=== PATIENT | male | born 1960 | race Native Hawaiian/Other Pacific Islander ===

== ENCOUNTER → 2020-09-30 | Outpatient (BNVA) | payer MEDICAID, SELFPAY | END | disposition home or self-care (01) | PROVIDERS: Visit Provider Urology ==

== ENCOUNTER 2025-04-10 11:54 | Emergency (ER) | payer MEDICARE, MEDICAID, SELFPAY ==
[2025-04-10 11:55] VITALS: BMI 22.7
[2025-04-10 12:10] VITALS: BP 149/64; PULSE 72; RESP 18; TEMP 37.6; O2SAT 93
--- NOTE | 2025-04-10 12:16 | PD.EDRME ---
Rapid Medical Screening Exam RME Arrival date/time: 04/10/25 11:54 Chief Complaint: Abdominal Pain Time Seen by Provider: 04/10/25 12:10 Vital signs: Vital Signs Temperature 99.6 F 04/10/25 12:10 Pulse Rate 72 04/10/25 12:10 Respiratory Rate 18 04/10/25 12:10 Blood Pressure 149/64 H 04/10/25 12:10 Pulse Oximetry (%) 93 L 04/10/25 12:10 Oxygen Delivery Method Room Air 04/10/25 12:10 RME Narrative: 64-year-old male past medical history of ESRD on hemodialysis Monday presents to the ER complaining of right lower quadrant pain and fever since yesterday. Patient does not make any more urine. Denies any nausea vomiting or diarrhea. I briefly performed a screening evaluation to initiate work-up and expedite care. Complete history, physical exam, and plan of care is deferred to the provider in the main ED. Exam: Head: Normocephalic, atraumatic. Respiratory: Normal effort. No respiratory distress or accessory muscle use. Neuro: Speech normal. Skin: Warm, dry, normal color. Psych: Pleasant. Normal affect. Cooperative. Clinical Impression: Abdominal pain
--- NOTE | 2025-04-10 12:17 | XR_ITS ---
Examination: CT abdomen and pelvis without contrast. Coronal 3-D reconstructions. Sagittal 2-D reconstructions. Date and time of exam: April 10, 2025, 1236 hours INDICATIONS: Right-sided flank pain beginning 2 days ago COMPARISON: October 27, 2020 CTDI: vol (mGy): 4.79 DLP: (mGycm): 258 Technique: Axial images of the abdomen have been obtained, 3 mm slice thickness Intravenous contrast material has not been administered. Low dose protocols were performed. One or more of the following dose reduction techniques were used; automated exposure control, adjustment of the mA and/or KV according to patient size, use of iterative reconstruction technique. Findings: Trace pericardial thickening No focal liver or splenic lesion No gallstones No pancreatic mass Perinephric stranding Normal appendix No renal or ureteral calculi, no hydronephrosis Urinary bladder wall thickening up to 10 mm Mild prostatomegaly Severe osteopenia IMPRESSION: Perinephric stranding, consider urinary tract infection No renal or ureteral calculi, no hydronephrosis Normal appendix Urinary bladder wall thickening, differential would include cystitis
[2025-04-10 13:00] LABS: Lactate (Lactic Acid) 1.4 mMol/L (0.4-2.0)
[2025-04-10 13:01] LABS: Basophils # (Auto) 0.1 Thou/mm3 (0.0-0.2); Basophils % (Auto) 1 % (0-2.5); Eosinophils # (Auto) 0.5 Thou/mm3 (0.0-0.5); Eosinophils % (Auto) 5 % (0-10); Hematocrit 27.4 % (41.0-53.0); Hemoglobin 9.4 g/dL (13.5-16.0); Immature Granulocytes Auto 0.03 Thou/mm3 (0.00-0.00); Lymphocytes # (Auto) 1.2 Thou/mm3 (1.0-4.8); Lymphocytes % (Auto) 12 % (10-50); Mean Corpuscular HGB Conc 34.3 g/dl (31.0-37.0); Mean Corpuscular Hemoglobin 24.7 pg (25.0-35.0); Mean Corpuscular Volume 72 fL (80-100); Monocytes # (Auto) 1.0 Thou/mm3 (0.0-0.8); Monocytes % (Auto) 10 % (0-12); Neutrophils # (Auto) 6.9 Thou/mm3 (1.8-7.7); Neutrophils % (Auto) 72 % (37-80); Nucleated Red Blood Cell # 0.00 Thou/mm3 (0.00-0.00); Nucleated Red Blood Cell % 0 /100 WBC (0); Platelet Count 272 Thou/mm3 (140-440); RDW Standard Deviation 40.4 fL (35.1-43.9); Red Blood Count 3.81 Miln/mm3 (4.50-5.90); White Blood Count 9.6 Thou/mm3 (3.8-10.6)
[2025-04-10 13:22] LABS: Alanine Aminotransferase 9 U/L (10-49); Albumin, Serum 4.2 gm/dL (3.4-4.8); Albumin/Globulin Ratio 1.4 (1.2-2.2); Alkaline Phosphatase 64 U/L (46-116); Anion Gap 13 (7-16); Aspartate Amino Transferase 16 U/L (0-34); BUN/Creatinine Ratio 3 Ratio (12-20); Bilirubin,Total 0.3 mg/dL (0.3-1.2); Blood Urea Nitrogen 16 mg/dL (9-23); Calcium 9.2 mg/dL (8.3-10.6); Calcium (Corrected) 9.2 mg/dL (8.5-10.1); Carbon Dioxide 28.3 mMol/L (20.0-31.0); Chloride 94 mMol/L (98-107); Creatinine (Component) 5.2 mg/dL (0.6-1.3); Estimated Creatinine Clearance 12.8 mL/min (>60); Globulin 2.9 gm/dL (2.3-3.5); Glucose 130 mg/dL (74-106); Lipase 29 U/L (12-53); Osmolality,Calculated 273 (275-295); Potassium 3.2 mMol/L (3.4-5.1); Sodium 135 mMol/L (136-145); Total Protein 7.1 gm/dL (5.7-8.2); eGFR 12 See Note
[2025-04-10 13:29] LABS: Collection Type, Urine Voided
[2025-04-10] MEDS: ONDANSETRON ODT 4 MG TABRAP PO (13:36)
[2025-04-10] MEDS: KETOROLAC INJ 30 MG/ML VIAL IM (13:37)
[2025-04-10 13:47] LABS: Bacteria,Urine Rare; Bilirubin,Urine Negative (Negative); Blood,Urine 2+ (Negative); Clarity,Urine Clear (Clear/Hazy); Color,Urine Lt-Yellow (Lt Yel-Yel); Glucose, Urine 2+ (Negative); Hyaline Casts,Urine < 1 /hpf (0-1); Ketones,Urine Negative (Negative); Leukocyte Esterase,Urine Negative (Negative); Nitrite,Urine Negative (Negative); PH,Urine 7.0 (5.0-7.0); Protein,Urine 3+ (Neg - Trace); RBC,Urine 11 /hpf (0-3); Specific Gravity,Urine 1.019 (1.001-1.035); Squamous Epithelial Cell,Urine 1 /hpf (0-5); Urobilinogen,Urine Negative mg/dL (0.0-1.0); WBC,Urine 1 /hpf (0-5)
--- NOTE | 2025-04-10 16:18 | XR_ITS ---
Upright PA and lateral chest 04/10/2025 at 4:29 p.m. Comparison study 03/26/2023 INDICATION: Chest pain and right flank pain today There is significant cardiomegaly noted. On the lateral film there is a slightly curving tubular structure overlying the anterior heart, this is seen situated obliquely over the midline on the PA chest film compared with the previous chest radiograph, dense appearance to be some mild linear bands of hypertension in the upper lungs, this definitely appears more prominent than on the last film. There is also some very mild but definite interstitial congestion in the base of the right lower lobe, and there is obscuration of the cardiac apex over the left lower lung suggesting the presence of some minimal congestion in this region lateral film shows no evidence of any pleural fluid posteriorly but there is a tiny amount of fluid within one of the major fissures. There is multilevel disc space narrowing throughout the dorsal spine. IMPRESSION: 1. There is significant cardiomegaly. 2 there is mild pulmonary venous hypertension in the upper lung zones, and very mild interstitial congestion in the lower lung zones, the findings are most consistent with very mild CHF. 3. There is an oblique tubular structure overlying the anterior heart shadow. This is of uncertain etiology but it appears to be postsurgical.
--- NOTE | 2025-04-10 16:19 | EKG_ITS ---
[facility] Test Date: 2025-04-10 Pat Name: GRETEL VANCE Department: Room: - Gender: Male [employer] Pourer: : 1960 Requested By: Chico Ryder Order Number: [id number] Reading MD: Chico Ryder Measurements Intervals [place] Rate: 74 P: 71 ND: 170 QRS: 70 QRSD: 102 T: 73 QT: 430 QTc: 480 Interpretive Statements SINUS RHYTHM PROBABLE INFERIOR MYOCARDIAL INFARCTION , OF INDETERMINATE AGE [35 ms Q WAVE IN II/aVF] Compared to ECG 03/26/2023 14:55:36 No significant changes /store/S0/[id number]
[2025-04-10 16:32] VITALS: BP 164/68; PULSE 67; RESP 18; TEMP 36.9; O2SAT 93
--- NOTE | 2025-04-10 17:22 | PD.EDABDPN ---
ED Abdominal Pain RME/HPI General Chief Complaint: Abdominal Pain Stated complaint: ABD PAIN AND SOB Time seen by provider: 04/10/25 12:10 Arrival date/time: 04/10/25 11:54 Limitations: no limitations RME / HPI RME / HPI narrative: 64-year-old male past medical history of ESRD on hemodialysis Monday presents to the ER complaining of right lower quadrant pain and fever since yesterday. Patient does not make any more urine. Denies any nausea vomiting or diarrhea. I briefly performed a screening evaluation to initiate work-up and expedite care. Complete history, physical exam, and plan of care is deferred to the provider in the main ED. DR. ROMERO MAIN ED EVALUATION: 64 year old male with history of CAD s/p PCI, hypertension, diabetes, ESRD on HD M/W/F presents to the ED with complaints of right flank pain just below the rib cage beginning yesterday. Described as aching in sensation, rating as severe 10/10. Aggravated with movements or coughing. Minimally improved with remaining still. No history of similar pain. Denies fevers, chills, sweats, nausea or vomiting. States after receiving medication in the ED, his pain has improved and now rated 4/10. Exam: Head: Normocephalic, atraumatic. Respiratory: Normal effort. No respiratory distress or accessory muscle use. Neuro: Speech normal. Skin: Warm, dry, normal color. Psych: Pleasant. Normal affect. Cooperative. Impression: Abdominal pain Related Data Home Medications ?Medication ?Instructions ?Recorded ?Confirmed atorvastatin 40 mg tablet 40 mg PO QPM 09/13/20 03/27/23 clopidogrel 75 mg tablet (Plavix) 75 mg PO QDAY 09/13/20 03/27/23 ergocalciferol (vitamin D2) 1,250 1 unit PO QWEEK 09/13/20 03/27/23 mcg (50,000 unit) capsule (Vitamin D2) gemfibrozil 600 mg tablet 600 mg PO BID 09/13/20 03/27/23 glipizide 2.5 mg tablet, extended 2.5 mg PO QAM 09/13/20 03/27/23 release 24 hr amlodipine 10 mg tablet 10 mg PO QDAY 02/04/23 03/27/23 aspirin 81 mg chewable tablet 81 mg PO PRN PRN chest discomfort 02/04/23 03/27/23 clonidine HCl 0.1 mg tablet 0.1 mg PO BID 02/04/23 03/27/23 finasteride 5 mg tablet 5 mg PO QDAY 02/04/23 03/27/23 folic acid 1 mg tablet 1 mg PO QDAY 03/27/23 03/27/23 Previous Rx's ?Medication ?Instructions ?Recorded tamsulosin 0.4 mg capsule 0.4 mg PO HS #30 caps 08/26/20 metoprolol succinate 50 mg 50 mg PO QDAY #30 tabs 02/24/23 tablet,extended release 24 hr hydrochlorothiazide 12.5 mg capsule 25 mg (2 x 12.5 mg) PO QDAY #60 03/28/23 caps Allergies Allergy/AdvReac Type Severity Reaction Status Date / Time No Known Allergies Allergy Verified 04/10/25 11:55 Review of Systems Review of Systems Systems Reviewed: All systems reviewed, normal except as documented Past Medical History Past Medical History CARDIAC: Positive Cardiac Disorders, Myocardial Infarction, Coronary Artery Disease, Hypercholesterolemia and Deep Vein Thrombosis RESPIRATORY: Positive Asthma GENITOURINARY: Positive Genitourinary Disorders, Renal Disease, Dialysis (mwf) and Benign Prostatic Hyperplasia ENDOCRINE: Positive Diabetes Mellitus Type 2 OTHER HISTORY: Positive Hospitalization and Chicken Pox Family History FAMILY HISTORY: Negative Family Psychiatric Problems, Family Respiratory Disorders, Family Cardiac Disorders, Family Gastrointestinal Problems, Family Cancer, Family Surgery or Family Anesthesia Reaction Surgical History SURGICAL: Positive Cardiac Surgery, Coronary Artery Bypass Graft and Coronary Stent Social History SMOKING STATUS: Current some day smoker SECOND HAND EXPOSURE: Yes SUBSTANCE USE: does not use ED Exam General Limitations: Present no limitations General appearance: Present alert and in no apparent distress Head Head exam: Present atraumatic Eye Eye exam: Present PERRL, EOMI and other (conjunctiva mildly injected ) ENT ENT exam: Present normal exam, normal oropharynx and mucous membranes moist Neck Neck exam: Present normal inspection, full ROM and trachea midline Chest Chest inspection: Present normal inspection and symmetric chest wall rise Respiratory Respiratory exam: Present normal lung sounds bilaterally Cardiovascular Cardiovascular exam: Present regular rate, normal rhythm and normal heart sounds Abdominal Exam Abdominal exam: Present soft, normal bowel sounds and other (rigth flank tenderness just below the ribs and above the hip, worse with deep palpation that seems to be related to pushing on abdominal wall ) Extremities Exam Extremities exam: Present full ROM and other (AV fistula with good thrill and pulse in the left upper extremity ) Back Exam Back exam: Present normal inspection and full ROM Neurological Exam Neurological exam: Present alert, oriented X3 and CN II-XII intact Psychiatric Psychiatric exam: Present normal affect and normal mood Skin Skin exam: Present warm, dry, intact and normal color Course Quality Measures none Orders Category Date Time Status EKG (ED ONLY) *Do not use* NOW Care 04/10/25 16:19 Completed NPO NOW Care 04/10/25 12:17 Active Diet NPO (NOW) Diet 04/10/25 12:[address] abdomen pelvis wo con Stat Exams 04/10/25 12:17 Completed EKG (ED Only) Stat Exams 04/10/25 16:19 Draft XR chest 2V Stat Exams 04/10/25 16:18 Completed Blood Culture (Lab) Stat Lab 04/10/25 12:48 Received CBC Stat Lab 04/10/25 12:48 Completed CMP [Comprehensive Metabolic Panel] Stat Lab 04/10/25 12:48 Completed Lactic Acid [Lactate (Lactic Acid)] Stat Lab 04/10/25 12:48 Completed Lipase Stat Lab 04/10/25 12:48 Completed Urinalysis Stat Lab 04/10/25 13:16 Completed Urine Culture Stat Lab 04/10/25 13:16 Received Acetaminophen Tab [Tylenol Tab] Med 04/10/25 17:20 Discontinued 650 mg PO X1 ONE Ketorolac Inj [Toradol Inj] Med 04/10/25 12:17 Discontinued 30 mg IM X1 ONE Ondansetron Odt [Zofran Odt] Med 04/10/25 12:17 Discontinued 4 mg PO X1 ONE Potassium Chloride [K-Dur] Med 04/10/25 17:20 Discontinued 20 meq PO X1 ONE Vital Signs Vital signs: Vital Signs Temperature 99.6 F 04/10/25 12:10 Pulse Rate 72 04/10/25 12:10 Respiratory Rate 18 04/10/25 12:10 Blood Pressure 149/64 H 04/10/25 12:10 Pulse Oximetry (%) 93 L 04/10/25 12:10 Oxygen Delivery Method Room Air 04/10/25 12:10 Pulse ox is 93% on room air which is borderline low. Abdominal Pain MDM MDM Narrative MDM Narrative:: Gretel Robison am scribing for and in the presence of Dr. Romero. Patient remains clinically stable throughout the emergency department visit. We reviewed all the results, analysis, and treatment plans. Studies are unremarkable for acute findings today and the pain is most likely musculoskeletal. Patient is amenable to discharge. Strict return precautions were outlined. Patient data External records reviewed:: [facility] previous records Clinical information provided by:: patient Social determinants that could affect healthcare access:: none Patient has the following chronic illnesses:: CAD s/p PCI, hypertension, diabetes, ESRD on HD M/W/F How is presenting disease/condition affected by chronic disease/condition?: exacerbated by Evaluation data The following diagnostics were reviewed and interpreted by me:: lab results, radiology exam(s) and EKG tracing(s) (EKG @ 16:29h, interpreted by me, normal sinus rhythm, rate 74, no STEMI. ) Lab and/or radiology exams considered but not ordered:: None Interpretation Summary: Ordering Physician: Chico Sommers PA-C Date of Service: 04/10/25 Procedure(s): CT abdomen pelvis wo [place] Accession Number(s): [id number] cc: Surinder Covarrubias MD; Chico Sommers PA-C~ Examination: CT abdomen and pelvis without contrast. Coronal 3-D reconstructions. Sagittal 2-D reconstructions. Date and time of exam: April 10, 2025, 1236 hours INDICATIONS: Right-sided flank pain beginning 2 days ago COMPARISON: October 27, 2020 CTDI: vol (mGy): 4.79 DLP: (mGycm): 258 Technique: Axial images of the abdomen have been obtained, 3 mm slice thickness Intravenous contrast material has not been administered. Low dose protocols were performed. One or more of the following dose reduction techniques were used; automated exposure control, adjustment of the mA and/or KV according to patient size, use of iterative reconstruction technique. Findings: Trace pericardial thickening No focal liver or splenic lesion No gallstones No pancreatic mass Perinephric stranding Normal appendix No renal or ureteral calculi, no hydronephrosis Urinary bladder wall thickening up to 10 mm Mild prostatomegaly Severe osteopenia IMPRESSION: Perinephric stranding, consider urinary tract infection No renal or ureteral calculi, no hydronephrosis Normal appendix Urinary bladder wall thickening, differential would include cystitis Dictated By: Surinder Covarrubias MD Signed By: <Electronically signed by Surinder Covarrubias MD in OV> 04/10/25 1317 Ordering Physician: Chico Sommers PA-C Date of Service: 04/10/25 Procedure(s): XR chest 2V Accession Number(s): [id number] cc: Surinder Brown MD; NO PRIMARY/FAMILY,PHYSICIAN; Chico Sommers PA-C~ Upright PA and lateral chest 04/10/2025 at 4:29 p.m. Comparison study 03/26/2023 INDICATION: Chest pain and right flank pain today There is significant cardiomegaly noted. On the lateral film there is a slightly curving tubular structure overlying the anterior heart, this is seen situated obliquely over the midline on the PA chest film compared with the previous chest radiograph, dense appearance to be some mild linear bands of hypertension in the upper lungs, this definitely appears more prominent than on the last film. There is also some very mild but definite interstitial congestion in the base of the right lower lobe, and there is obscuration of the cardiac apex over the left lower lung suggesting the presence of some minimal congestion in this region lateral film shows no evidence of any pleural fluid posteriorly but there is a tiny amount of fluid within one of the major fissures. There is multilevel disc space narrowing throughout the dorsal spine. IMPRESSION: 1. There is significant cardiomegaly. 2 there is mild pulmonary venous hypertension in the upper lung zones, and very mild interstitial congestion in the lower lung zones, the findings are most consistent with very mild CHF. 3. There is an oblique tubular structure overlying the anterior heart shadow. This is of uncertain etiology but it appears to be postsurgical. Dictated By: Surinder Brown MD Signed By: <Electronically signed by Surinder Brown MD in OV> 04/10/25 1657 Medications / Prescriptions Medications or Prescriptions considered but not ordered:: None Medication administrations:: Medication Administration History Discontinued Medications Acetaminophen (Acetaminophen 325 Mg Tablet) 650 mg PO X1 ONE Stop: 04/10/25 17:21 Last Admin: 04/10/25 17:34 Dose: 650 mg Documented By: EF Ketorolac Tromethamine (Ketorolac Inj 30 Mg/Ml Vial) 30 mg IM X1 ONE Stop: 04/10/25 12:18 Last Admin: 04/10/25 13:37 Dose: 30 mg Documented By: VG Ondansetron HCl (Ondansetron Odt 4 Mg Tabrap) 4 mg PO X1 ONE; Protocol Stop: 04/10/25 12:18 Last Admin: 04/10/25 13:36 Dose: 4 mg Documented By: VG Potassium Chloride (Potassium Chloride 20 Meq Tabcr) 20 meq PO X1 ONE Stop: 04/10/25 17:21 Last Admin: 04/10/25 17:35 Dose: 20 meq Documented By: EF See above Consultations Consultation(s) initiated? (list below): No Diagnosis Differential diagnosis abdominal pain: abdominal pain, calculus of kidney, small bowel obstruction and other (musculoskeletal pain ) Most likely diagnosis given after review of the tests above:: Acute right flank pain Musculoskeletal pain Admission Indicated Admission indicated?: not indicated Admission Request Was there a request for admission?: No Disposition Plan Disposition Plan: Discharge Discharge Attestation Discharge Attestation: The patient and all family members were given an opportunity to ask questions and understood the discharge instructions. Discharge instructions specifically effects, indications for sooner follow up or return to the emergency department, and the expected course of current diagnosis. Patient condition: Stable Discharge Plan Plan Patient Disposition: HOME (Self Care) Patient condition on transfer: Stable Prescriptions/Referrals Prescriptions/Med Rec: No Action glipizide 2.5 mg Tablet Extended Release 24hr 2.5 mg PO QAM atorvastatin 40 mg Tablet 40 mg PO QPM gemfibrozil 600 mg Tablet 600 mg PO BID ergocalciferol (vitamin D2) [Vitamin D2] 1,250 mcg (50,000 unit) Capsule 1 unit PO QWEEK Rx Instructions: one once a week clopidogrel [Plavix] 75 mg tablet 75 mg PO QDAY tamsulosin 0.4 mg Capsule 0.4 mg PO HS Qty: 30 0RF clonidine HCl 0.1 mg tablet 0.1 mg PO BID Rx Instructions: take one tablet PO in morning, take one tablet PO at bedtime finasteride 5 mg tablet 5 mg PO QDAY amlodipine 10 mg tablet 10 mg PO QDAY aspirin 81 mg Tablet,Chewable 81 mg PO PRN PRN (Reason: chest discomfort) metoprolol succinate 50 mg tablet extended release 24 hr 50 mg PO QDAY Qty: 30 0RF Rx Instructions: take one by mouth 3 times daily for blood pressure folic acid 1 mg tablet 1 mg PO QDAY Patient Comments: TAKE ONE TABLET BY MOUTH EVERY DAY VITAMIN hydrochlorothiazide 12.5 mg Capsule 25 mg PO QDAY Qty: 60 0RF Referrals: No Primary/Family,Physician [Primary Care Provider] - In 1 week Problem List Clinical Impression: Acute right flank pain, Musculoskeletal pain Patient/Caregiver Discharge Instructions Discharge Activity: activity as tolerated Additional Instructions: Please take Tylenol 500 mg 1 to 2 tablets every 6 hours for pain. Follow-up with your doctor in 1 day. If you have any concerns return to the ER for increased abdominal pain. Print Language: Azeri Stand Alone Forms: Echo Award Info., Patient Portal Info Letter
[2025-04-10] MEDS: ACETAMINOPHEN 325 MG TABLET 650 MG PO (17:34)
[2025-04-10 17:56] VITALS: BP 169/80; PULSE 78; RESP 16; TEMP 37.2; O2SAT 94
== END 2025-04-10 18:01 | disposition home or self-care (01) ==
PROVIDERS: Physician Assistant; Emergency Provider Family Medicine
DX: R10.A1 Flank pain, right side (principal); M79.18 Myalgia, other site; N32.89 Other specified disorders of bladder; I13.11 Hypertensive heart and chronic kidney disease without heart failure, with stage 5 chronic kidney disease, or end stage renal disease; E11.22 Type 2 diabetes mellitus with diabetic chronic kidney disease; F17.210 Nicotine dependence, cigarettes, uncomplicated; N18.6 End stage renal disease; I25.10 Atherosclerotic heart disease of native coronary artery without angina pectoris; Z99.2 Dependence on renal dialysis; Z79.84 Long term (current) use of oral hypoglycemic drugs; Z95.5 Presence of coronary angioplasty implant and graft
CPT/HCPCS: 36415; 71046; 74176; 80053; 81001; 83605; 83690; 85025; 87040; 87086; 93005; 96372; 99284; J1885; Q0162; A9270

== ENCOUNTER 2025-04-11 09:19 | Inpatient (IN) | payer MEDICARE, MEDICAID, SELFPAY ==
[2025-04-11] VITALS (31 sets, daily range): BP systolic 149–191; BP diastolic 62–86; PULSE 78–105; RESP 12–88; TEMP 36.7–39.1; O2SAT 88–100; BMI 22.7; BMI 23.6
--- NOTE | 2025-04-11 09:22 | EKG_ITS ---
[facility] Test Date: 2025-04-11 Pat Name: GRETEL VANCE Department: Room: - Gender: Male [employer]visor [employer]: : 1960 Requested By: David Hodges Order Number: [id number] Reading MD: David Hodges Measurements Intervals [place] Rate: 98 P: 71 [place]: 160 QRS: 74 QRSD: 105 T: 60 QT: 382 QTc: 489 Interpretive Statements SINUS RHYTHM POSSIBLE LEFT ATRIAL ENLARGEMENT [-0.1mV P-WAVE IN V1/V2] PROBABLE INFERIOR MYOCARDIAL INFARCTION , PROBABLY OLD [35 ms Q WAVE IN II/aVF] Compared to ECG 04/10/2025 16:29:49 No significant changes /store/S0/[id number].pdf
--- NOTE | 2025-04-11 09:30 | XR_ITS ---
EXAMINATION: AP chest single view TECHNIQUE: AP portable semiupright chest single view Date and time: April 11, 2025, 1037 hours, comparison April 10, 2025 INDICATIONS: Chest pain today. FINDINGS: Mild CHF Mild to moderate enlargement left ventricle Prominent vascular congestion with perihilar basilar edema Prominent osteopenia IMPRESSION: Mild CHF
--- NOTE | 2025-04-11 09:54 | ECHO_ITS ---
Patient Info Name: Dustin Avila Age: 64 years : 1960 Gender: Male Ht: 165 cm Wt: 62 kg BSA: 1.69 m2 BP: 190 / 76 mmHg HR: 86 bpm Exam Date: 04/11/2025 11:14 AM Admit Date: 04/11/2025 Site: [facility] Room Number: 274 Patient Status: E Exam Type: CA echo doppler complete Bias Cutter: Dominique Doran Ordering Physician: Kapil Nj Study Info Indications ACS, hx of CAD - Primary Location: SERX Left Ventricular Outflow Tract Name Value Normal LVOT 2D LVOT Diameter 1.9 cm LVOT Doppler LVOT Peak Velocity 158 cm/s LVOT Mean Gradient 5 mmHg LVOT VTI 37 cm LVOT VTI/AV VTI Ratio 0.8 LVOT Stroke Volume 105 ml Pulmonic Valve Name Value Normal PV Doppler PV Peak Velocity 110 cm/s PV Regurgitation Doppler MN Peak End Diastolic Velocity 94 cm/s Mitral Valve Name Value Normal MV Doppler MV Decel [place] 863 cm/s2 MV PHT 35 ms MV Area (PHT) 6.3 cm2 4.0-5.0 MV Diastolic Function MV E Peak Velocity 103 cm/s MV A Peak Velocity 126 cm/s MV E/A 0.8 MV Annular TDI MV Septal e' Velocity 3.7 cm/s MV E/e' (Septal) 27.8 MV Lateral e' Velocity 4.9 cm/s MV E/e' (Lateral) 21.0 MV e' Average 4.30 cm/s MV E/e' (Average) 24.4 Tricuspid Valve Name Value Normal TV Regurgitation Doppler TR Peak Velocity 270 cm/s Estimated PAP/RSVP RA Pressure 3 mmHg <=5 PA Systolic Pressure 32 mmHg <36 RV Systolic Pressure 32 mmHg <36 Aortic Valve Name Value Normal AV 2D/MM AV Cusp Sep (MM) 1.8 cm AV Doppler AV Peak Velocity 211 cm/s AV Mean Gradient 8 mmHg AV VTI 46 cm AV Area (Cont Eq VTI) 2.3 cm2 >=3.0 AV Area (Cont Eq Pool) 2.1 cm2 AV DI (Pool) 0.75 AV Regurgitation 2D LVOT Area 2.8 cm2 Ventricles Name Value Normal LV Dimensions 2D/MM IVS Diastolic Thickness (2D) 1.0 cm 0.6-1.0 LVID Diastole (2D) 4.9 cm 4.2-5.8 LVIW Diastolic Thickness (2D) 1.7 cm 0.6-1.0 LVID Systole (2D) 3.5 cm 2.5-4.0 LVOT Diameter 1.9 cm LV Mass (2D Cubed) 267.94 g 88.00-224.00 LV Mass Index (2D Cubed) 159 g/m2 49-115 Relative Wall Thickness (2D) 0.69 <=0.42 IVS/LVIW Diastolic Thickness (2D) 0.59 0.00-1.50 LV Fractional Shortening/Ejection Fraction 2D/MM LV Fractional Shortening (2D) 29 % 25-43 LV EF (2D Teichholz) 55 % Atria Name Value Normal LA Dimensions LA Volume (4C A-L) 84 ml LA Volume (BP A-L) 86 ml Left Ventricle Left ventricular chamber dimension is normal. Left ventricular systolic function is normal with visually estimated ejection fraction of 50-55%. There is mild concentric hypertrophy noted in the left ventricle. Left ventricular segmental wall motion is normal. There is grade I diastolic dysfunction in the left ventricle. Right Ventricle Right ventricular chamber dimension is normal. Right ventricular systolic function is normal. Left Atrium Left atrial chamber dimension is moderately enlarged. Right Atrium Right atrial chamber dimension is normal. Aortic Valve The aortic valve is trileaflet. There is no aortic valve sclerosis. There is mild aortic valve stenosis with a peak velocity of 211 cm/s, mean gradient of 8 mmHg, and aortic valve area of 2.3 cm2. There is trace aortic valve regurgitation. Pulmonic Valve The pulmonic valve is normal. There is no pulmonic valve stenosis. There is trace pulmonic regurgitation. Mitral Valve The mitral valve has thickened leaflets. There is no mitral valve stenosis. There is trace mitral valve regurgitation. Tricuspid Valve The tricuspid valve leaflets are normal. There is no tricuspid valve stenosis. There is mild tricuspid valve regurgitation. No pulmonary hypertension, estimated pulmonary arterial systolic pressure is 32 mmHg and systemic blood pressure of 190 mmHg in systole. Pericardium/Pleural The pericardium appears normal. There is no pericardial effusion. No pleural effusion visualized. Inferior Vena Cava Normal inferior vena cava with >50% collapse upon inspiration consistent with normal right atrial pressure, 3 mmHg. Aorta The aortic measurements are indexed to age and body surface area. The aortic root at the sinus of Valsalva is not well visualized. The prox ascending aorta is not well visualized. Summary 1. Left ventricle size is normal and systolic function is normal. Estimated ejection fraction is 50-55%. There is grade I diastolic dysfunction. There is mild concentric hypertrophy noted. 2. Right ventricle chamber size is normal and systolic function is normal. Estimated RVSP is 32 mmHg. 3. There is no aortic valve sclerosis with mild stenosis and trace regurgitation. 4. There is trace mitral valve regurgitation with Mild MAC and thickened leaflets. 5. There is mild tricuspid valve regurgitation and Trace Pulmonic regurgitation. 6. The left atrium is moderately enlarged. The right atrium is normal. 7. Normal IVC with estimated RA pressure 3 mmHg. Report Signatures Finalized by Leeann Hanks on 04/11/2025 01:02 PM
--- NOTE | 2025-04-11 09:55 | PD.EDADULT ---
ED General RME/HPI General Chief complaint: Chest Pain Stated complaint: CHEST PAIN Time Seen by Provider: 04/11/25 09:28 Arrival date/time: 04/11/25 09:19 Related Data Home Medications ?Medication ?Instructions ?Recorded ?Confirmed atorvastatin 40 mg tablet 40 mg PO QPM 09/13/20 03/27/23 clopidogrel 75 mg tablet (Plavix) 75 mg PO QDAY 09/13/20 03/27/23 ergocalciferol (vitamin D2) 1,250 1 unit PO QWEEK 09/13/20 03/27/23 mcg (50,000 unit) capsule (Vitamin D2) gemfibrozil 600 mg tablet 600 mg PO BID 09/13/20 03/27/23 glipizide 2.5 mg tablet, extended 2.5 mg PO QAM 09/13/20 03/27/23 release 24 hr amlodipine 10 mg tablet 10 mg PO QDAY 02/04/23 03/27/23 aspirin 81 mg chewable tablet 81 mg PO PRN PRN chest discomfort 02/04/23 03/27/23 clonidine HCl 0.1 mg tablet 0.1 mg PO BID 02/04/23 03/27/23 finasteride 5 mg tablet 5 mg PO QDAY 02/04/23 03/27/23 folic acid 1 mg tablet 1 mg PO QDAY 03/27/23 03/27/23 Previous Rx's ?Medication ?Instructions ?Recorded tamsulosin 0.4 mg capsule 0.4 mg PO HS #30 caps 08/26/20 metoprolol succinate 50 mg 50 mg PO QDAY #30 tabs 02/24/23 tablet,extended release 24 hr hydrochlorothiazide 12.5 mg capsule 25 mg (2 x 12.5 mg) PO QDAY #60 03/28/23 caps Allergies Allergy/AdvReac Type Severity Reaction Status Date / Time No Known Allergies Allergy Verified 04/10/25 11:55 ED Exam Narrative Physical exam: Physical Exam: GENERAL: Awake, answering questions appropriately, appears stated age HEENT: NC/AT. Moist mucosa. PERRLA/EOMI. CARDIO: Heart RRR, no obvious murmurs, no JVD. PULM: No coughing or visible SOB. Bilateral cardiac wheezing noted without any rales/rhonchi GI: Abdomen soft, tenderness to palpation in solely right lower quadrant with some guarding but no rigidity noted. Borborygmi apparent SKIN/MSK/EXT: Left AV fistula patent with thrill. No wounds/discoloration/rashes/edema/amputations. +Pedal pulses present B/L. NEURO: Oriented x3, Moves extremities x4, no focal neurologic deficits noted. Course Quality Measures none Orders Category Date Time Status Roll Sheeting Cutter STAT Care 04/11/25 09:30 Active Continuous Pulse Oximetry ONCE Care 04/11/25 09:30 Active EKG (ED ONLY) *Do not use* NOW Care 04/11/25 09:22 Completed EKG (ED ONLY) *Do not use* NOW Care 04/11/25 09:30 Completed In and Out Catheter X1PRN Care 04/11/25 10:08 Active Insert IV STAT Care 04/11/25 09:30 Active NPO STAT Care 04/11/25 10:08 Active Notify provider NOW Care 04/11/25 09:49 Active Strict Intake and Output Routine Care 04/11/25 10:08 Ordered Consult to Cardiology Stat Cons 04/11/25 09:52 Ordered Consult to Nephrology Stat Cons 04/11/25 10:51 Ordered CA echo doppler complete Stat Exams 04/11/25 09:54 Ordered EKG (ED Only) Stat Exams 04/11/25 09:22 Draft EKG (ED Only) Stat Exams 04/11/25 09:30 Stop Req XR chest 1V portable Stat Exams 04/11/25 09:30 Taken B-Type Natriuretic Peptide Stat Lab 04/11/25 09:40 Received Blood Culture (Lab) Stat Lab 04/11/25 09:52 Received CBC Stat Lab 04/11/25 09:40 Completed Comprehensive Metabolic Panel Stat Lab 04/11/25 09:40 Completed LDH (Lactate Dehydrogenase) Stat Lab 04/11/25 09:57 Received Lactate (Lactic Acid) Stat Lab 04/11/25 09:57 Completed Lipase Stat Lab 04/11/25 09:40 Completed Magnesium Stat Lab 04/11/25 09:40 Completed Partial Thromboplastin Time Stat Lab 04/11/25 09:40 Completed Phosphorous Stat Lab 04/11/25 09:57 Received Procalcitonin Stat Lab 04/11/25 09:57 Received Prothrombin Time with INR Stat Lab 04/11/25 09:40 Completed Troponin I Stat Lab 04/11/25 09:40 Completed Troponin I Stat Lab 04/11/25 10:56 Ordered Urinalysis, C/S if Indicated Stat Lab 04/11/25 10:08 Ordered Acetaminophen Tab [Tylenol Tab] Med 04/11/25 10:07 Discontinued 650 mg PO X1 ONE Aspirin Chew Med 04/11/25 09:29 Discontinued 162 mg PO X1 ONE Atorvastatin Calcium [Lipitor] Med 04/11/25 21:00 Active 80 mg PO HS Heparin Inj Med 04/11/25 10:30 Discontinued 3,700 unit IV X1 ONE Heparin/D5w 25K 250 ML Ivpb [Heparin in D5w Ivpb] Med 04/11/25 10:45 Active 25,000 unit in 250 ml IV 12 units/kg/hr Magnesium Sulfate 4 GM Ivpb [Magnesium Sulfate Ivpb] Med 04/11/25 10:33 Active 4 gm in 50 ml IV X1 Metoprolol Succinate Xl [Toprol Xl] Med 04/11/25 09:48 Discontinued 25 mg PO X1 ONE Nitroglycerin [Nitrostat 1/150] Med 04/11/25 09:29 Active 0.4 mg SL Q5M PRN Ringers Lactated 1000 ml [Lactated Ringers] 1,845 ml Med 04/11/25 10:08 Active IV 1,845 mls/hr Oxygen Delivery NOW RT 04/11/25 09:30 Active Vital Signs Vital signs: Vital Signs Temperature 102.4 F H 04/11/25 09:46 Pulse Rate 97 04/11/25 09:46 Respiratory Rate 22 H 04/11/25 09:46 Blood Pressure 190/76 H 04/11/25 09:46 Pulse Oximetry (%) 97 04/11/25 09:46 Oxygen Delivery Method Nasal Cannula 04/11/25 09:46 Oxygen Flow Rate 2 04/11/25 09:46 Discharge Plan Plan Patient Disposition: Admit Acute Care w/in Hospital Patient condition on transfer: Stable Prescriptions/Referrals Prescriptions/Med Rec: No Action glipizide 2.5 mg Tablet Extended Release 24hr 2.5 mg PO QAM atorvastatin 40 mg Tablet 40 mg PO QPM gemfibrozil 600 mg Tablet 600 mg PO BID ergocalciferol (vitamin D2) [Vitamin D2] 1,250 mcg (50,000 unit) Capsule 1 unit PO QWEEK Rx Instructions: one once a week clopidogrel [Plavix] 75 mg tablet 75 mg PO QDAY tamsulosin 0.4 mg Capsule 0.4 mg PO HS Qty: 30 0RF clonidine HCl 0.1 mg tablet 0.1 mg PO BID Rx Instructions: take one tablet PO in morning, take one tablet PO at bedtime finasteride 5 mg tablet 5 mg PO QDAY amlodipine 10 mg tablet 10 mg PO QDAY aspirin 81 mg Tablet,Chewable 81 mg PO PRN PRN (Reason: chest discomfort) metoprolol succinate 50 mg tablet extended release 24 hr 50 mg PO QDAY Qty: 30 0RF Rx Instructions: take one by mouth 3 times daily for blood pressure folic acid 1 mg tablet 1 mg PO QDAY Patient Comments: TAKE ONE TABLET BY MOUTH EVERY DAY VITAMIN hydrochlorothiazide 12.5 mg Capsule 25 mg PO QDAY Qty: 60 0RF Problem List Clinical Impression: Non-ST elevation (NSTEMI) myocardial infarction Patient/Caregiver Discharge Instructions Print Language: Telugu Stand Alone Forms: Echo Award Info., Patient Portal Info Letter MDM Narrative MDM hospital course (for use when minimal MDM required): HPI: 64-year-old male with past medical history of coronary artery disease status post stent placements x 2 about 20 years ago without any cardiology follow-up since then, ESRD on HD (MWF) secondary to hypertensive uropathy followed by Dr. Cadena, hypertension, hyperlipidemia, [id number] type 2 diabetes, BPH presenting to the ED on 04/11 due to substernal chest pain which started during dialysis session. Patient apparently 1-1/2 hours into dialysis started experiencing crushing chest pain in the middle, substernal region which did not radiate anywhere. Nitroglycerin was given by the dialysis nurse sublingual which initially helped but EMS was called who started the patient on nitroglycerin paste and an additional nitroglycerin tablet along with half dose bolus of aspirin was given by the EMS personnel. Patient states that he he got left heart cath done about 20 years ago in [place]; moreover, he has not been seen by floor trader in town since moving here. On examination, please refer to the physical exam above; patient presented to the ER hypertensive 190/76, heart rate of 97, tachypneic respiratory rate fluctuating low 20s to 30s, febrile with a temperature of 102.4 ?F, saturating 90 on 2 L nasal cannula. Laboratory findings included leukocytosis with white count of 19.5 with left shift, chronic microcytic anemia, normal platelets, CMP showed some hypokalemia potassium of 3.0, mild hypochloremia, ESRD status with a creatinine, lactic of 1.2, magnesium 1.7, troponin 0.219 mildly elevated compared to chronic baseline elevation. Urinalysis was largely unremarkable for any signs of infection but there was hematuria and proteinuria noted, chest x-ray is pending official read from radiology and EKG initially from EMS showed pathologic Q wave in limb leads along with ST depression in V4?V5; subsequent EKG done in the ED showed pathologic Q waves but without the ST depressions noted. Bedside echo showed good wall motion and likely preserved ejection fraction. #Sepsis As noted, patient meets criteria for sepsis alert with noted tachycardia, tachypnea, leukocytosis Source at this time is unknown; likely pneumonia versus less likely urine, skin, AV fistula site looks unremarkable Plan: Will follow-up on chest x-ray findings and initiate antibiotics Sepsis bolus given 30 cc/kg Tylenol for fever #Chest pain Likely ACS, NSTEMI type I versus NSTEMI type II secondary to ESRD status Due to the troponin elevation along with EKG changes and patient's typical chest pain along with history of significant coronary artery disease with no follow-up with cardiology in over 20 years Spoke with cardiology who recommended that she start treatment as if the patient is having ACS Plan: Continue IV heparin drip Gave additional half bolus of the aspirin to have the complete bolus Statin ordered Metoprolol succinate 25 mg as there is no acute heart failure Cardiology consulted, echo ordered Nephrology consulted for continued dialysis if the patient is admitted Will speak with hospitalist team regarding possible admission Patient seen and assessed with attending Dr. Wiley Nj, DO PGY-2 Internal Medicine - GME Medication Administration(s) Medication Administration History Atorvastatin Calcium (Atorvastatin Calcium 20 Mg Tablet) 80 mg PO HS LUCRETIA Stop: 05/11/25 20:59 Heparin Sodium/Dextrose (Heparin In D5w Ivpb) 25,000 unit in 250 mls @ 7.44 mls/hr IV .Q24H LUCRETIA; Protocol Stop: 04/25/25 10:44 Lactated Ringer's (Lactated Ringers) 1,845 mls @ 1,845 mls/hr 30 ml/kg infuse over 60 min (1845 ml) IV .Q1H ONE Stop: 04/11/25 11:07 Last Admin: 04/11/25 10:32 Dose: 1,845 mls/hr Documented By: LUCINA Comments: ALARIS PUMP ONLY SET TO INFUSE 1845ML OF LR Magnesium Sulfate (Magnesium Sulfate Ivpb) 4 gm in 50 mls @ 12.5 mls/hr IV X1 ONE Stop: 04/11/25 14:32 Nitroglycerin (Nitroglycerin 0.4 Mg Subl Btl #25) 0.4 mg SL Q5M PRN PRN Reason: CHEST PAIN Discontinued Medications Acetaminophen (Acetaminophen 325 Mg Tablet) 650 mg PO X1 ONE Stop: 04/11/25 10:08 Last Admin: 04/11/25 10:26 Dose: 650 mg Documented By: LUCINA Aspirin (Aspirin 81 Mg Chew) 162 mg PO X1 ONE Stop: 04/11/25 09:30 Last Admin: 04/11/25 10:26 Dose: 162 mg Documented By: LUCINA Heparin Sodium (Porcine) (Heparin Sod Inj 5000 Unit/Ml Vial) 3,700 unit 60 unit/kg (3700 unit) IV X1 ONE; Protocol Stop: 04/11/25 10:31 Metoprolol Succinate (Metoprolol Succinate Xl 25 Mg Tabcr) 25 mg PO X1 ONE Stop: 04/11/25 09:49 Last Admin: 04/11/25 10:26 Dose: 25 mg Documented By: LUCINA
[2025-04-11 10:08] LABS: Basophils # (Auto) 0.1 Thou/mm3 (0.0-0.2); Basophils % (Auto) 0 % (0-2.5); Eosinophils # (Auto) 0.0 Thou/mm3 (0.0-0.5); Eosinophils % (Auto) 0 % (0-10); Hematocrit 26.3 % (41.0-53.0); Hemoglobin 8.8 g/dL (13.5-16.0); Immature Granulocytes Auto 0.12 Thou/mm3 (0.00-0.00); Lymphocytes # (Auto) 0.7 Thou/mm3 (1.0-4.8); Lymphocytes % (Auto) 4 % (10-50); Mean Corpuscular HGB Conc 33.5 g/dl (31.0-37.0); Mean Corpuscular Hemoglobin 24.0 pg (25.0-35.0); Mean Corpuscular Volume 72 fL (80-100); Monocytes # (Auto) 1.2 Thou/mm3 (0.0-0.8); Monocytes % (Auto) 6 % (0-12); Neutrophils # (Auto) 17.3 Thou/mm3 (1.8-7.7); Neutrophils % (Auto) 89 % (37-80); Nucleated Red Blood Cell # 0.00 Thou/mm3 (0.00-0.00); Nucleated Red Blood Cell % 0 /100 WBC (0); Platelet Count 301 Thou/mm3 (140-440); RDW Standard Deviation 39.8 fL (35.1-43.9); Red Blood Count 3.66 Miln/mm3 (4.50-5.90); White Blood Count 19.5 Thou/mm3 (3.8-10.6)
[2025-04-11 10:13] LABS: INR 1.0 (0.9-1.3); Partial Thromboplastin Time 35.0 Seconds (22.0-36.0); Prothrombin Time 10.2 Seconds (9.0-12.2)
[2025-04-11 10:20] LABS: Lactate (Lactic Acid) 1.2 mMol/L (0.4-2.0)
--- NOTE | 2025-04-11 10:21 | PC.NURSE ---
DR. ROMERO MADE AWARE THAT THIS PT IS A SEPSIS ALERT DUE TO PT V/S, PER DR. ROMERO, PT IS NOT SEPSIS.
[2025-04-11 10:22] LABS: Alanine Aminotransferase 14 U/L (10-49); Albumin, Serum 4.2 gm/dL (3.4-4.8); Albumin/Globulin Ratio 1.4 (1.2-2.2); Alkaline Phosphatase 60 U/L (46-116); Anion Gap 15 (7-16); Aspartate Amino Transferase 23 U/L (0-34); BUN/Creatinine Ratio 3 Ratio (12-20); Bilirubin,Total 0.4 mg/dL (0.3-1.2); Blood Urea Nitrogen 10 mg/dL (9-23); Calcium 9.2 mg/dL (8.3-10.6); Calcium (Corrected) 9.2 mg/dL (8.5-10.1); Carbon Dioxide 29.0 mMol/L (20.0-31.0); Chloride 95 mMol/L (98-107); Creatinine (Component) 3.2 mg/dL (0.6-1.3); Estimated Creatinine Clearance 20.8 mL/min (>60); Globulin 3.1 gm/dL (2.3-3.5); Glucose 121 mg/dL (74-106); Lipase 29 U/L (12-53); Magnesium 1.7 mg/dL (1.6-2.6); Osmolality,Calculated 277 (275-295); Potassium 3.0 mMol/L (3.4-5.1); Sodium 139 mMol/L (136-145); Total Protein 7.3 gm/dL (5.7-8.2); eGFR 21 See Note
[2025-04-11] MEDS: ACETAMINOPHEN 325 MG TABLET 650 MG PO (10:26)
[2025-04-11] MEDS: ASPIRIN 81 MG CHEW 162 MG PO (10:26)
[2025-04-11] MEDS: METOPROLOL SUCCINATE XL 25 MG TABCR PO (10:26)
[2025-04-11 10:37] LABS: Troponin I 0.219 ng/mL (0.0-0.045)
[2025-04-11 10:38] LABS: B-Type Natriuretic Peptide 1543 pg/mL (0-100)
[2025-04-11 11:02] LABS: LDH (Lactate Dehydrogenase) 159 U/L (120-246); Phosphorous 2.0 mg/dL (2.4-5.1); Procalcitonin 3.22 ng/ml (0.0-0.49)
[2025-04-11] MEDS: Magnesium Sulfate 4 GM Ivpb 4 GM/50 ML BAG IV (11:02)
[2025-04-11] MEDS: Heparin/D5w 25K 250 ML Ivpb 25,000 UNIT/250 ML BAG 7.44 UNIT IV (11:02)
[2025-04-11] MEDS: HEPARIN SOD INJ 5000 UNIT/ML VIAL 3700 UNIT IV (11:03)
[2025-04-11] MEDS: CEFEPIME INJ 2 GM in SODIUM CHLORIDE 0.9% (Popper) 50 ML IV (11:26)
[2025-04-11] MEDS: VANCOMYCIN/NS 1 GM IVPB 200 ML IV (12:02)
[2025-04-11 12:48] LABS: Troponin I 0.205 ng/mL (0.0-0.045)
[2025-04-11] MEDS: FUROSEMIDE INJ 10 MG/ML 4ML VIAL 40 MG IVP ×2 (14:10→20:29)
--- NOTE | 2025-04-11 14:41 | PC.NURSE ---
moved pt to room 5 and placed on bipap-
--- NOTE | 2025-04-11 14:50 | PD.HHHP ---
Documentation for date of: 04/11/25 HPI - Hospitalist History of Present Illness History of present illness: Patient is a 65 years old male with past medical history of coronary artery disease status post stent placement x 2, ESRD on hemodialysis, hypertension, hyperlipidemia type 2 diabetes mellitus, BPH who presented to the ED with complaint of substernal chest pain while receiving dialysis session. Patient stated about 1.5 hours after the dialysis started, patient started having chest pain without any radiation. He received nitroglycerin sublingual at the dialysis center, which provided relief. Patient received nitroglycerin paste and aspirin with EMS. States that he received cardiac catheterization about 20 years ago but has not been keeping up with these follow-ups. At the time of exam, patient appeared short of breath but denied any chest pain, palpitations. He has been having fevers since yesterday along with shortness of breath and cough. Denies abdominal pain, nausea, vomiting, swelling of the limbs. In the ED, patient was hypertensive with blood pressure of 190/76, had temperature of 102.4, respiratory rate 38. He was started on nasal cannula but with worsening shortness of breath and increased work of breathing, he was switched to BiPAP. Lab results show WBC of 19.5 with neutrophilic predominance, hemoglobin 8.8, MCV 72. He had potassium of 3.0, creatinine 3.2, phosphorus 2.0 and troponin 0.219, Wells downtrended to 0.205. BNP at 940 was 1543. Procalcitonin 3.22. Urinalysis was negative for pyuria. Patient underwent echocardiogram, which showed ejection fraction of 50 to 55%, normal left ventricular size and systolic function. Chest x-ray was obtained, shows vascular congestion. Patient was started on IV antibiotics and given IV fluid bolus as well as sepsis protocol. Cardiology was contacted by ED, recommended starting patient on antiplatelet, statin and anticoagulation as per ACS protocol. Past medical history: coronary artery disease status post stent placement x 2, ESRD on hemodialysis, hypertension, hyperlipidemia type 2 diabetes mellitus, BPH Past surgical history: Foot surgery Social history:[id number] smoking history, quit long time ago, denies alcohol abuse, denies illicit drug use Review of Systems Review of Systems Systems Reviewed: All systems reviewed, normal except as documented Meds Home Medications and Allergies Home Medications ?Medication ?Instructions ?Recorded ?Confirmed ?Type atorvastatin 40 mg tablet 40 mg PO QPM 09/13/20 03/27/23 History clopidogrel 75 mg tablet (Plavix) 75 mg PO QDAY 09/13/20 03/27/23 History ergocalciferol (vitamin D2) 1,250 1 unit PO QWEEK 09/13/20 03/27/23 History mcg (50,000 unit) capsule (Vitamin D2) gemfibrozil 600 mg tablet 600 mg PO BID 09/13/20 03/27/23 History glipizide 2.5 mg tablet, extended 2.5 mg PO QAM 09/13/20 03/27/23 History release 24 hr amlodipine 10 mg tablet 10 mg PO QDAY 02/04/23 03/27/23 History aspirin 81 mg chewable tablet 81 mg PO PRN PRN chest discomfort 02/04/23 03/27/23 History clonidine HCl 0.1 mg tablet 0.1 mg PO BID 02/04/23 03/27/23 History finasteride 5 mg tablet 5 mg PO QDAY 02/04/23 03/27/23 History folic acid 1 mg tablet 1 mg PO QDAY 03/27/23 03/27/23 History Allergies Allergy/AdvReac Type Severity Reaction Status Date / Time No Known Allergies Allergy Verified 04/10/25 11:55 Exam Vital Signs Temp Pulse Resp BP Pulse Ox O2 Del Method O2 Flow Rate 98.8 F 80 32 H 149/86 H 99 BiPAP 2 04/11/25 15:09 04/11/25 18:33 04/11/25 18:33 04/11/25 18:01 04/11/25 18:33 04/11/25 18:01 04/11/25 11:29 FiO2 35 04/11/25 18:33 Narrative GENERAL: Well built male, in acute respiratory distress HEENT: Normocephalic, atraumatic, extraocular movements intact, pupils equal and reactive to light NECK: Supple, no JVD or bruits. CARDIOVASULAR: RRR, S1 and S2 heard, without murmur, rubs or gallops. LUNGS/CHEST: Bilateral wheezing over all lung shaw, bibasilar crackles ABDOMEN: Soft, nontender, with normal bowel sounds. No rebound, rigidity, or guarding. EXTREMITIES: No edema, clubbing or cyanosis. No joint deformity. Able to move all limbs. SKIN: Warm and dry without rashes. Left AV fistula with thrill NEURO: Alert, awake and oriented x4. Cranial nerves: II through XII grossly intact. normal speech, able to answer questions and follow commands appropriately, strength and sensation normal and equal bilaterally, no focal neurological deficits PSYCHIATRIC: Normal mood and affect. Results - Hospitalist Labs Diagrams: 04/11/25 09:40 04/11/25 14:49 Labs: Short CBC 04/11/25 Range/Units 09:40 WBC 19.5 H D (3.8-10.6) Thou/mm3 Hgb 8.8 L (13.5-16.0) g/dL Hct 26.3 L (41.0-53.0) % Plt Count 301 (140-440) Thou/mm3 BMP 04/11/25 04/11/25 09:40 14:49 Sodium 139 138 Potassium 3.0 L 3.9 D Chloride 95 L 97 L Carbon Dioxide 29.0 28.0 BUN 10 15 Creatinine 3.2 H D 4.1 H* D Glucose 121 H 159 H Calcium 9.2 8.5 Cardiac Enzymes 04/11/25 04/11/25 Range/Units 09:40 11:35 Troponin I 0.219 H* 0.205 H* (0.0-0.045) ng/mL Liver Function 04/11/25 Range/Units 09:40 Total Bilirubin 0.4 (0.3-1.2) mg/dL AST 23 (0-34) U/L ALT 14 (10-49) U/L Alkaline Phosphatase 60 (46-116) U/L Albumin 4.2 (3.4-4.8) gm/dL Urine 04/11/25 Range/Units 18:27 Urine Color Lt-Yellow (Lt Yel-Yel) Urine Clarity Clear (Clear/Hazy) Urine pH 7.5 H (5.0-7.0) Ur Specific [place] 1.015 (1.001-1.035) Urine Protein 3+ A (Neg - Trace) Urine Glucose (UA) 2+ A (Negative) ABG Interpretation ABG results: 04/11/25 14:49 VBG pH 7.45 VBG pCO2 45 VBG pO2 63 H VBG Base Excess 6 H Assessment & Plan -Hospitalist Patient Synopsis Patient is a 64 years old male with past medical history of coronary artery disease status post stents, hypertension, hyperlipidemia, diabetes mellitus, BPH, ESRD on hemodialysis who presented with chest pain during hemodialysis session. Was found to be febrile, had elevation troponin. Will admit the patient for management of ACS, and sepsis, unclear source. #ACS #NSTEMI type I versus 2 #History of coronary artery disease status post stents Patient presented with chest pain during hemodialysis session, improved with nitroglycerin Has a history of CAD but has not been following with cardiology EKG shows inconsistent mild changes, no ST elevation Troponin peaked at 0.129 Cardiology contacted by ED, recommended to restart the patient on aspirin, statin and heparin drip, appreciate recommendations. Patient underwent echocardiogram, shows normal left ventricular size and function, ejection fraction of 50 to 55%. Nitroglycerin as needed and morphine as needed for pain #Sepsis #Possible community-acquired pneumonia Source not fully clear, chest x-ray has bilateral infiltrates Patient had fever, tachypnea, leukocytosis, Elevated troponin, elevated procalcitonin Patient received aggressive IV hydration in the ED Started on IV vancomycin and Zosyn Blood and urine cultures obtained #Acute hypoxic respiratory failure #Concern for HFpEF exacerbation Patient started having increased work of breathing and shortness of breath after IV fluid resuscitation BNP was elevated at 1543 Started patient on BiPAP, ordered Lasix 40 mg IV we will continue with 40 IV twice daily Strict ins and out, fluid restriction, daily weight #ESRD on hemodialysis Only received partial hemodialysis today Nephrology consulted, appreciate recommendations #Hypertensive urgency/emergency Patient had blood pressure of 190/76 on presentation Received metoprolol 25 in the ED Blood pressure improved to 149/86 this evening Ordered labetalol as needed #Type II diabetes mellitus Started on insulin sliding scale Ordered A1c for a.m. Frequent glucose checks, hypoglycemia protocol in place #BPH Resumed home tamsulosin Disposition: Telemetry for ACS, acute hypoxic respiratory failure Diet: Renal diet DVT prophylaxis: On heparin drip for ACS CODE STATUS: Full code Quality Measures Quality Measures none
[2025-04-11 14:56] LABS: Base Excess, Venous 6 (-3-3); Lactate (Lactic Acid) 1.1 mMol/L (0.4-2.0); O2 Saturation, Venous 91 % (96-97); PCO2, Venous 45 mmHg (36-56); PO2, Venous 63 mmHg (15-58); pH, Venous 7.45 (7.33-7.66)
[2025-04-11] MEDS: PIPER/TAZO INJ 4.5 GM in SODIUM CHLORIDE 0.9% (POP) 100 ML IV (15:16)
[2025-04-11 15:31] LABS: Anion Gap 13 (7-16); BUN/Creatinine Ratio 4 Ratio (12-20); Blood Urea Nitrogen 15 mg/dL (9-23); Calcium 8.5 mg/dL (8.3-10.6); Carbon Dioxide 28.0 mMol/L (20.0-31.0); Chloride 97 mMol/L (98-107); Creatinine (Component) 4.1 mg/dL (0.6-1.3); Estimated Creatinine Clearance 16.3 mL/min (>60); Glucose 159 mg/dL (74-106); Osmolality,Calculated 279 (275-295); Potassium 3.9 mMol/L (3.4-5.1); Sodium 138 mMol/L (136-145); eGFR 16 See Note
--- NOTE | 2025-04-11 16:24 | PC.CC ---
Patient is a 64 year-old male who presents to the hospital for chest pain. HYDROGRAPHY TEACHERKellie made [id number] contact with patient introduced self, role, and reason for visit. Patient appeared alert and oriented to self, location, and situation. HYDROGRAPHY TEACHER, discussed limits of confidentiality. Patient made appropriate eye contact and engaged in initial assessment. ? Patient confirmed information on demographics and reports to living at home with his , Filiberto Avila . Per patient, in the even he is unable to make his own medical decisions his medical decision maker is his . At home patient ambulates independently and completes his own ADLs. Patient does not use any oxygen at home. Patient receives Dialysis 3x week Monday, Monday, Monday at 5am here in [place] but does not recall the name of the facility. His primary provider is Dr. Green [facility] Upon discharge patient plans to return back home. workforce services representative to follow up with any discharge needs.
[2025-04-11 17:47] LABS: Partial Thromboplastin Time 42.6 Seconds (22.0-36.0)
[2025-04-11] MEDS: ALBUTEROL/IPRATROPIUM (Duoneb) RT SOL 3 ML NEBU INH (18:11)
[2025-04-11] MEDS: HEPARIN SOD INJ 5000 UNIT/ML VIAL 1850 UNIT IV (18:13)
[2025-04-11 18:33] LABS: Collection Type, Urine Clean Catch
[2025-04-11 18:39] LABS: Bilirubin,Urine Negative (Negative); Blood,Urine 1+ (Negative); Clarity,Urine Clear (Clear/Hazy); Color,Urine Lt-Yellow (Lt Yel-Yel); Culture Indicated,Urine Not Indicated; Glucose, Urine 2+ (Negative); Ketones,Urine 1+ (Negative); Leukocyte Esterase,Urine Negative (Negative); Nitrite,Urine Negative (Negative); PH,Urine 7.5 (5.0-7.0); Protein,Urine 3+ (Neg - Trace); RBC,Urine 13 /hpf (0-3); Specific Gravity,Urine 1.015 (1.001-1.035); Squamous Epithelial Cell,Urine 1 /hpf (0-5); Urobilinogen,Urine Negative mg/dL (0.0-1.0); WBC,Urine 1 /hpf (0-5)
--- NOTE | 2025-04-11 19:25 | PC.NURSE ---
Patient report received from Jj BROWN. Patient has been admitted to the hospital currently waiting for a bed assignment. Patient is awake, alert, resting in bed at its lowest position with wheels locked and call light within reach. Patient care assumed at this time.
[2025-04-11] MEDS: ATORVASTATIN CALCIUM 20 MG TABLET 80 MG PO (21:19)
[2025-04-11] MEDS: PIPER/TAZO 3.375 GM PREMIX 3.375 GM/50 ML BAG IV (21:20)
[2025-04-12] VITALS (17 sets, daily range): BP systolic 134–179; BP diastolic 63–76; PULSE 69–105; RESP 12–77; TEMP 36.9–37.5; O2SAT 92–100; BMI 23.6
[2025-04-12 00:49] LABS: Partial Thromboplastin Time 40.9 Seconds (22.0-36.0)
[2025-04-12] MEDS: ALBUTEROL/IPRATROPIUM (Duoneb) RT SOL 3 ML NEBU INH ×4 (00:58→18:41)
[2025-04-12] MEDS: FUROSEMIDE INJ 10 MG/ML 4ML VIAL 40 MG IVP (05:22)
[2025-04-12 06:31] LABS: Basophils # (Auto) 0.1 Thou/mm3 (0.0-0.2); Basophils % (Auto) 0 % (0-2.5); Eosinophils # (Auto) 0.1 Thou/mm3 (0.0-0.5); Eosinophils % (Auto) 0 % (0-10); Hematocrit 23.8 % (41.0-53.0); Immature Granulocytes Auto 0.07 Thou/mm3 (0.00-0.00); Lymphocytes # (Auto) 1.9 Thou/mm3 (1.0-4.8); Lymphocytes % (Auto) 11 % (10-50); Mean Corpuscular HGB Conc 34.5 g/dl (31.0-37.0); Mean Corpuscular Hemoglobin 24.8 pg (25.0-35.0); Mean Corpuscular Volume 72 fL (80-100); Monocytes # (Auto) 1.2 Thou/mm3 (0.0-0.8); Monocytes % (Auto) 7 % (0-12); Neutrophils # (Auto) 13.7 Thou/mm3 (1.8-7.7); Neutrophils % (Auto) 81 % (37-80); Nucleated Red Blood Cell # 0.00 Thou/mm3 (0.00-0.00); Nucleated Red Blood Cell % 0 /100 WBC (0); Platelet Count 264 Thou/mm3 (140-440); RDW Standard Deviation 40.5 fL (35.1-43.9); Red Blood Count 3.30 Miln/mm3 (4.50-5.90); White Blood Count 17.0 Thou/mm3 (3.8-10.6)
[2025-04-12 06:32] LABS: Hemoglobin 8.2 g/dL (13.5-16.0)
[2025-04-12 06:52] LABS: Alanine Aminotransferase 14 U/L (10-49); Albumin, Serum 3.8 gm/dL (3.4-4.8); Albumin/Globulin Ratio 1.3 (1.2-2.2); Alkaline Phosphatase 56 U/L (46-116); Anion Gap 16 (7-16); Aspartate Amino Transferase 24 U/L (0-34); BUN/Creatinine Ratio 5 Ratio (12-20); Bilirubin,Total 0.4 mg/dL (0.3-1.2); Blood Urea Nitrogen 26 mg/dL (9-23); Calcium 8.6 mg/dL (8.3-10.6); Calcium (Corrected) 8.8 mg/dL (8.5-10.1); Carbon Dioxide 26.6 mMol/L (20.0-31.0); Cardiac Risk Estimate 2.6 RATIO (4.0-6.7); Chloride 96 mMol/L (98-107); Cholesterol 91 mg/dL (132-200); Creatinine (Component) 5.4 mg/dL (0.6-1.3); Estimated Creatinine Clearance 12.3 mL/min (>60); Globulin 2.9 gm/dL (2.3-3.5); Glucose 129 mg/dL (74-106); Glucose Estimated Average 160 mg/dL (80-131); HDL Cholesterol 35 mg/dL (40-60); Hemoglobin A1C 7.2 % Hgb (4.8-6.0); LDL Cholesterol,Calculated 34 mg/dL (0-130); Magnesium 2.6 mg/dL (1.6-2.6); Osmolality,Calculated 284 (275-295); Phosphorous 3.4 mg/dL (2.4-5.1); Potassium 3.3 mMol/L (3.4-5.1); Sodium 139 mMol/L (136-145); Thyroid Stimulating Hormone 0.47 uIU/mL (0.55-4.78); Total Protein 6.7 gm/dL (5.7-8.2); Triglycerides 112 mg/dL (30-150); eGFR 11 See Note
--- NOTE | 2025-04-12 08:43 | ESPR_ITS ---
<Statement entered by Onel Frances MD - 04/12/25 14:01> Patient was examined and case was reviewed with team including attending physician. Note reviewed, I agree with most of its contents and agree with the patient's care as documented by Dr. Mathias Patient seen today at the bedside found awake, alert, orientedx3. No overnight events reported. Vital signs stable at this time. Troponins uptrended and peaked currently downtrending, leak secondary to fluid shift from HD. Heparin drip discontinued at this time. Currently on BiPAP. Case discussed with my attending Dr. Luh Frances MD PGY-2 Disclaimer: Despite multiple revisions, due to the dictation software being used, the document bellow may not be free of grammatical errors including phonetic/typographic errors. However, this does not deter from our commitment to providing health care in the patient's best interest in mind. Documentation for date of: 04/12/25 Subjective Subjective Interval history: Mr. Avila is a 64M with past medical history of coronary artery disease status post stent placement x 2, ESRD on hemodialysis M/W/F, hypertension, hyperlipidemia type 2 diabetes mellitus, BPH who presented initially on 04/11/25 with complaint of substernal chest pain while receiving dialysis session. Patient stated he received cardiac catheterization about 20 years ago but has not been keeping up with these follow-ups. He was admitted for NSTEMI. 04/12/25: NAOE. Trop peaked at 0.219. Heparin gtt discontinued. Patient's elevated trop is likely due to ESRD, will continue antiplatelet and statin per cardiology recommendation. WBC decreased to 17 from 19.5 today, Bcx NGTD, continue empiric abx for now. On exam, patient is on BiPAP due to hypoxia on RA per RN. Patient received 1.8L of fluid in the ED per sepsis bolus, will continue to monitor oxygen status, if fluid overloaded, may require dialysis. Exam Vital Signs Temp Pulse Resp BP Pulse Ox O2 Del Method O2 Flow Rate 98.5 F 75 17 179/76 H 100 BiPAP 2 04/12/25 07:55 04/12/25 07:55 04/12/25 07:55 04/12/25 07:55 04/12/25 07:55 04/12/25 07:55 04/12/25 04:00 FiO2 35 04/12/25 06:58 Narrative Exam General: Awake and in no acute distress. on BiPAP. Conversational. HEENT: Normocephalic, atraumatic Heart: Regular rate and rhythm Lungs: Clear to auscultation with no wheezing or crackles. Abdomen: Soft, nondistended, nontender. No guarding or rebound tenderness. Neurologic: Alert and oriented x3, no gross neurological deficit, and patient able to move all 4 extremities. Extremities: No pitting edema in lower extremities. Skin: No rash. No ecchymoses. Objective Labs 04/12/25 05:21 04/12/25 05:21 Labs: Laboratory Results - last 24 hr 04/11/25 04/11/25 04/11/25 09:40 09:57 11:35 WBC 19.5 H D RBC 3.66 L Hgb 8.8 L Hct 26.3 L MCV 72 L MCH 24.0 L MCHC 33.5 RDW Std Deviation 39.8 Plt Count 301 Neut % (Auto) 89 H Lymph % (Auto) 4 L [place] % (Auto) 6 Eos % (Auto) 0 Baso % (Auto) 0 Neut # (Auto) 17.3 H Lymph # (Auto) 0.7 L [place] # (Auto) 1.2 H Eos # (Auto) 0.0 Baso # (Auto) 0.1 Immature Gran # (Auto) 0.12 H Absolute Nucleated RBC 0.00 Immature Gran % 1 H Nucleated RBC % 0 PT 10.2 INR 1.0 APTT 35.0 VBG pH VBG pCO2 VBG pO2 VBG O2 Sat ([place]) VBG Base Excess Sodium 139 Potassium 3.0 L Chloride 95 L Carbon Dioxide 29.0 Anion Gap 15 BUN 10 Creatinine 3.2 H D Estim Creat Clear Calc 20.8 L eGFR 21 L BUN/Creatinine Ratio 3 L Glucose [address] Glu mg/dL Hemoglobin A1c Calculated Osmolality 277 Lactic Acid 1.2 Calcium 9.2 Corrected Calcium 9.2 Phosphorus 2.0 L Magnesium 1.7 Total Bilirubin 0.4 AST 23 ALT 14 Alkaline Phosphatase 60 Lactate Dehydrogenase 159 Troponin I 0.219 H* 0.205 H* B-Natriuretic Peptide 1543 H* Total Protein 7.3 Albumin 4.2 Globulin 3.1 Albumin/Globulin Ratio 1.4 Triglycerides Cholesterol LDL Cholesterol, Calc HDL Cholesterol Cholesterol/HDL Ratio Lipase 29 Procalcitonin 3.22 H TSH Ur Collection Type Urine Color Urine Clarity Urine pH Ur Specific [place] Urine Protein Urine Glucose (UA) Urine Ketones Urine Blood Urine Nitrite Urine Bilirubin Urine Urobilinogen (Auto) Ur Leukocyte Esterase Urine RBC Urine WBC Ur Squamous Epith Cells Urine Bacteria Ur Culture Indicated? 04/11/25 04/11/25 04/11/25 14:49 17:17 18:27 WBC RBC Hgb Hct MCV MCH MCHC RDW Std Deviation Plt Count Neut % (Auto) Lymph % (Auto) [place] % (Auto) Eos % (Auto) Baso % (Auto) Neut # (Auto) Lymph # (Auto) [place] # (Auto) Eos # (Auto) Baso # (Auto) Immature Gran # (Auto) Absolute Nucleated RBC Immature Gran % Nucleated RBC % PT INR APTT 42.6 H VBG pH 7.45 VBG pCO2 45 VBG pO2 63 H VBG O2 Sat ([place]) 91 L VBG Base Excess 6 H Sodium 138 Potassium 3.9 D Chloride 97 L Carbon Dioxide 28.0 Anion Gap 13 BUN 15 Creatinine 4.1 H* D Estim Creat Clear Calc 16.3 L eGFR 16 L BUN/Creatinine Ratio 4 L Glucose [address] Glu mg/dL Hemoglobin A1c Calculated Osmolality 279 Lactic Acid 1.1 Calcium 8.5 Corrected Calcium Phosphorus Magnesium Total Bilirubin AST ALT Alkaline Phosphatase Lactate Dehydrogenase Troponin I B-Natriuretic Peptide Total Protein Albumin Globulin Albumin/Globulin Ratio Triglycerides Cholesterol LDL Cholesterol, Calc HDL Cholesterol Cholesterol/HDL Ratio Lipase Procalcitonin TSH Ur Collection Type Clean Catch Urine Color Lt-Yellow Urine Clarity Clear Urine pH 7.5 H Ur Specific [place] 1.015 Urine Protein 3+ A Urine Glucose (UA) 2+ A Urine Ketones 1+ A Urine Blood 1+ A Urine Nitrite Negative Urine Bilirubin Negative Urine Urobilinogen (Auto) Negative Ur Leukocyte Esterase Negative Urine RBC 13 H Urine WBC 1 Ur Squamous Epith Cells 1 Urine Bacteria None Ur Culture Indicated? Not Indicated 04/12/25 04/12/25 00:22 05:21 WBC 17.0 H RBC 3.30 L Hgb 8.2 L Hct 23.8 L MCV 72 L MCH 24.8 L MCHC 34.5 RDW Std Deviation 40.5 Plt Count 264 D Neut % (Auto) 81 H Lymph % (Auto) 11 [place] % (Auto) 7 Eos % (Auto) 0 Baso % (Auto) 0 Neut # (Auto) 13.7 H Lymph # (Auto) 1.9 [place] # (Auto) 1.2 H Eos # (Auto) 0.1 Baso # (Auto) 0.1 Immature Gran # (Auto) 0.07 H Absolute Nucleated RBC 0.00 Immature Gran % 0 Nucleated RBC % 0 PT INR APTT 40.9 H VBG pH VBG pCO2 VBG pO2 VBG O2 Sat ([place]) VBG Base Excess Sodium 139 Potassium 3.3 L D Chloride 96 L Carbon Dioxide 26.6 Anion Gap 16 BUN 26 H Creatinine 5.4 H* D Estim Creat Clear Calc 12.3 L eGFR 11 L* BUN/Creatinine Ratio 5 L Glucose [address] Glu mg/dL 160 H Hemoglobin A1c 7.2 H Calculated Osmolality 284 Lactic Acid Calcium 8.6 Corrected Calcium 8.8 Phosphorus 3.4 Magnesium 2.6 Total Bilirubin 0.4 AST 24 ALT 14 Alkaline Phosphatase 56 Lactate Dehydrogenase Troponin I B-Natriuretic Peptide Total Protein 6.7 Albumin 3.8 Globulin 2.9 Albumin/Globulin Ratio 1.3 Triglycerides 112 Cholesterol 91 L LDL Cholesterol, Calc 34 HDL Cholesterol 35 L Cholesterol/HDL Ratio 2.6 L Lipase Procalcitonin TSH 0.47 L Ur Collection Type Urine Color Urine Clarity Urine pH Ur Specific [place] Urine Protein Urine Glucose (UA) Urine Ketones Urine Blood Urine Nitrite Urine Bilirubin Urine Urobilinogen (Auto) Ur Leukocyte Esterase Urine RBC Urine WBC Ur Squamous Epith Cells Urine Bacteria Ur Culture Indicated? ABG Interpretation ABG results: 04/11/25 14:49 VBG pH 7.45 VBG pCO2 45 VBG pO2 63 H VBG Base Excess 6 H Quality Measures Quality Measures VTE prophylaxis Assessment & Plan Assessment Current Active Medications: Generic Name Dose Route Start Last Admin Trade Name Freq PRN Reason Stop Dose Admin Acetaminophen 650 mg 04/11/25 13:24 Acetaminophen 325 Mg Tablet PO 05/11/25 13:23 Q6H PRN Fever >101.5 Albuterol/Ipratropium 3 ml 04/11/25 19:00 04/12/25 06:57 Albuterol/Ipratropium (Duoneb) Rt Jennifer 3 Ml Nebu INH 05/11/25 18:59 3 ml Q6HRRT LUCRETIA Administration Aspirin 81 mg 04/12/25 09:00 Aspirin Ec 81 Mg Tabec PO 05/12/25 08:59 QDAY LUCRETIA Atorvastatin Calcium 80 mg 04/11/25 21:00 04/11/25 21:19 Atorvastatin Calcium 20 Mg Tablet PO 05/11/25 20:59 80 mg HS LUCRETIA Administration Dextrose 25 ml 04/11/25 13:55 Dextrose 50%-Water Inj 50 Ml Syringe IV 05/11/25 13:54 Q15MIN PRN BG 50-70 responsive npo pt Dextrose 50 ml 04/11/25 13:55 Dextrose 50%-Water Inj 50 Ml Syringe IV 05/11/25 13:54 Q15MIN PRN BG <50 OR BG <70 & pt unresponsive Furosemide 40 mg 04/11/25 19:30 04/12/25 05:22 Furosemide Inj 10 Mg/Ml 4ml Vial IVP 05/11/25 19:29 40 mg BIDD LUCRETIA Administration Glucagon 1 mg 04/11/25 13:55 Glucagon Inj 1 Mg Vial IM Q15MIN PRN BG <70, and no IV access Heparin Sodium/Dextrose 25,000 unit in 250 mls @ 7.44 mls/hr 04/11/25 10:45 04/11/25 18:17 Heparin In D5w Ivpb IV 04/25/25 10:44 0 units/kg/hr .Q24H LUCRETIA 0 mls/hr Protocol Titration 12 UNITS/KG/HR Piperacillin/Tazobactam/Dextrose 3.375 gm in 50 mls @ 12.5 mls/hr 04/11/25 21:00 04/11/25 21:20 Zosyn IV 04/18/25 20:59 12.5 mls/hr Q12HR LUCRETIA Administration Protocol Insulin Human Lispro 0 unit 04/11/25 17:00 04/12/25 07:20 Insulin Lispro (Admelog) 1 Unit/0.01 Ml Unit SC 05/11/25 16:59 Not Given AC LUCRETIA Protocol Labetalol HCl 10 mg 04/11/25 19:23 Labetalol Inj 5 Mg/Ml Vial 4 Ml IVP 05/11/25 19:29 Q8H PRN SBP>160 Morphine Sulfate 1 mg 04/11/25 13:24 Morphine Sulf Inj 4 Mg/Ml Vial IVP 04/16/25 13:23 Q4HR PRN PAIN SCALE 7-10 (Severe Nitroglycerin 0.4 mg 04/11/25 09:29 Nitroglycerin 0.4 Mg Subl Btl #25 SL Q5M PRN CHEST PAIN Ondansetron HCl 4 mg 04/11/25 13:24 Ondansetron Inj 2 Mg/Ml Inj 2 Ml IVP 05/11/25 13:23 Q6H PRN NAUSEA OR VOMITING Protocol Pharmacy Consult 1 each 04/12/25 09:00 Vancomycin Pharmacy To Dose 1 Each Each IV 05/12/25 08:59 QDAY PRN PROTOCOL Tamsulosin HCl 0.4 mg 04/12/25 09:00 Tamsulosin Hcl 0.4 Mg Capsule PO 05/12/25 08:59 QDAY [place]CRETIA Plan Patient is a 64 years old male with past medical history of coronary artery disease status post stents, hypertension, hyperlipidemia, diabetes mellitus, BPH, ESRD on hemodialysis M/W/F who presented with chest pain during hemodialysis session. Was found to be febrile, had elevation troponin. Will admit the patient for management of ACS, and sepsis, unclear source. #ACS #NSTEMI type I versus 2 #History of coronary artery disease status post stents Patient presented with chest pain during hemodialysis session, improved with nitroglycerin Has a history of CAD but has not been following with cardiology EKG shows inconsistent mild changes, no ST elevation Initial Troponin at 0.129 Cardiology contacted by ED, recommended to restart the patient on aspirin, statin and heparin drip, appreciate recommendations. Patient underwent echocardiogram, shows normal left ventricular size and function, ejection fraction of 50 to 55%. - Heparin gtt discontinued 04/12/25, continue statin and antiplatlet per cardiology recs. --> ASA 81mg QD, Atorvastatin 80mg QD - Nitroglycerin as needed and morphine as needed for pain - oxygen as needed. #Sepsis #Possible community-acquired pneumonia Source not fully clear, chest x-ray has bilateral infiltrates Patient had fever, tachypnea, leukocytosis, Elevated troponin, elevated procalcitonin Patient received aggressive IV hydration in the ED - Continue IV vancomycin and Zosyn (04/11 ~ 04/18) - Blood cultures NGTD - Urine cultures pending #Acute hypoxic respiratory failure #Concern for HFpEF exacerbation Patient started having increased work of breathing and shortness of breath after IV fluid resuscitation BNP was elevated at 1543 - Continue BiPAP as needed, - D/C lasix given patient is ESRD on dialysis, oliguric - Strict ins and out, fluid restriction, daily weight - May require dialysis if increase O2 demand. #ESRD on hemodialysis Only received partial hemodialysis today - Nephrology consulted, appreciate recommendations - daily labs, monitor chemistry - renal dose med, avoid nephrotoxin - no recent contrast or offending mediations #Hypertensive urgency/emergency Patient had blood pressure of 190/76 on presentation Received metoprolol 25 in the ED Blood pressure improved to 149/86 this evening Ordered labetalol as needed - Continue home metoprolol 50mg QD #Type II diabetes mellitus Started on insulin sliding scale A1c 7.2 - Frequent glucose checks, hypoglycemia protocol in place - ISS #BPH - chronic medical problem - continue home tamsulosin Health maintenance Dispo: Telemetry for ACS, acute hypoxic respiratory failure DVT prophylaxis: Heparin SC GI prophylaxis: N/A Antibiotics: Zosyn + Vanco Bowel Regimen: N/A Diet: Renal Diet Lines: Peripheral IV Code status: Full code Case discussed with my senior resident Dr. Corona Case discussed with my attending Dr. Luh [facility], DO PGY 1 Attending Provider Attestation/Addendum I have seen and examined the patient. I was physically present for the dao portions of the services provided including history, physical exam, diagnosis, treatment plans and orders. I agree with assessment and plan of care as documented by residents. Even though this this note was carefully revised there may still be minor errors in curam developer due to voice recognition software. Guera Arvizu MD
[2025-04-12] MEDS: ASPIRIN EC 81 MG TABEC PO (08:44)
[2025-04-12] MEDS: TAMSULOSIN HCL 0.4 MG CAPSULE PO (08:44)
[2025-04-12] MEDS: PIPER/TAZO 3.375 GM PREMIX 3.375 GM/50 ML BAG IV ×2 (08:45→21:08)
[2025-04-12] MEDS: METOPROLOL SUCCINATE XL 25 MG TABCR 50 MG PO (12:14)
[2025-04-12] MEDS: guaiFENesin/COD SYRUP 5 ML UDC PO (14:47)
--- NOTE | 2025-04-12 16:05 | ESPR_ITS ---
<Statement entered by Leeann Hanks MD - 04/19/25 18:01> I personally examined the patient evaluate the patient with resident physician PGY [address] Dr. Mcallister patient has multiple medical problems dialysis patient end- stage renal disease previous CAD now has had some atypical chest pain shortness of breath mild troponin elevation possibly type II troponin clinically stable clinical picture does not suggest myocardial infarction NSTEMI treating as type II myocardial infarction not due to coronary occlusion possible demand. Will continue to monitor the patient for any change in status. Agree with treatment plan recommendation as documented by resident physician will continue to follow the patient for cardiology point Documentation for date of: 04/12/25 Subjective Subjective Interval history: Patient examined at bedside. Denies any chest pain or shortness of breath. Was on BiPAP states that he is feeling better. Vitals are stable. Heparin drip discontinued most likely patient has elevated troponins for demand ischemia NSTEMI type II. No EKG changes noticed. Continue aspirin 81 mg, atorvastatin 80 mg, metoprolol succinate 50 mg. Urinary output of 150 cc past 24 hours. Exam Vital Signs Temp Pulse Resp BP Pulse Ox O2 Del Method O2 Flow Rate 98.5 F 76 26 H 134/74 H 98 BiPAP 2 04/12/25 12:00 04/12/25 13:32 04/12/25 13:32 04/12/25 12:14 04/12/25 13:32 04/12/25 12:00 04/12/25 12:00 FiO2 35 04/12/25 13:32 Narrative Exam General: Awake and in no acute distress. on BiPAP. Conversational. HEENT: Normocephalic, atraumatic Heart: Regular rate and rhythm Lungs: Clear to auscultation with no wheezing or crackles. Abdomen: Soft, nondistended, nontender. No guarding or rebound tenderness. Neurologic: Alert and oriented x3, no gross neurological deficit, and patient able to move all 4 extremities. Extremities: No pitting edema in lower extremities. Skin: No rash. No ecchymoses. Objective Labs 04/12/25 05:21 04/12/25 05:21 Labs: Laboratory Results - last 24 hr 04/11/25 04/11/25 04/12/25 17:17 18:27 00:22 WBC RBC Hgb Hct MCV MCH MCHC RDW Std Deviation Plt Count Neut % (Auto) Lymph % (Auto) [place] % (Auto) Eos % (Auto) Baso % (Auto) Neut # (Auto) Lymph # (Auto) [place] # (Auto) Eos # (Auto) Baso # (Auto) Immature Gran # (Auto) Absolute Nucleated RBC Immature Gran % Nucleated RBC % APTT 42.6 H 40.9 H Sodium Potassium Chloride Carbon Dioxide Anion Gap BUN Creatinine Estim Creat Clear Calc eGFR BUN/Creatinine Ratio Glucose Estimated Ave Glu mg/dL Hemoglobin A1c Calculated Osmolality Calcium Corrected Calcium Phosphorus Magnesium Total Bilirubin AST ALT Alkaline Phosphatase Total Protein Albumin Globulin Albumin/Globulin Ratio Triglycerides Cholesterol LDL Cholesterol, Calc HDL Cholesterol Cholesterol/HDL Ratio TSH Ur Collection Type Clean Catch Urine Color Lt-Yellow Urine Clarity Clear Urine pH 7.5 H Ur Specific [place] 1.015 Urine Protein 3+ A Urine Glucose (UA) 2+ A Urine Ketones 1+ A Urine Blood 1+ A Urine Nitrite Negative Urine Bilirubin Negative Urine Urobilinogen (Auto) Negative Ur Leukocyte Esterase Negative Urine RBC 13 H Urine WBC 1 Ur Squamous Epith Cells 1 Urine Bacteria None Ur Culture Indicated? Not Indicated 04/12/25 05:21 WBC 17.0 H RBC 3.30 L Hgb 8.2 L Hct 23.8 L MCV 72 L MCH 24.8 L MCHC 34.5 RDW Std Deviation 40.5 Plt Count 264 D Neut % (Auto) 81 H Lymph % (Auto) 11 [place] % (Auto) 7 Eos % (Auto) 0 Baso % (Auto) 0 Neut # (Auto) 13.7 H Lymph # (Auto) 1.9 [place] # (Auto) 1.2 H Eos # (Auto) 0.1 Baso # (Auto) 0.1 Immature Gran # (Auto) 0.07 H Absolute Nucleated RBC 0.00 Immature Gran % 0 Nucleated RBC % 0 APTT Sodium 139 Potassium 3.3 L D Chloride 96 L Carbon Dioxide 26.6 Anion Gap 16 BUN 26 H Creatinine 5.4 H* D Estim Creat Clear Calc 12.3 L eGFR 11 L* BUN/Creatinine Ratio 5 L Glucose [address] Glu mg/dL 160 H Hemoglobin A1c 7.2 H Calculated Osmolality 284 Calcium 8.6 Corrected Calcium 8.8 Phosphorus 3.4 Magnesium 2.6 Total Bilirubin 0.4 AST 24 ALT 14 Alkaline Phosphatase 56 Total Protein 6.7 Albumin 3.8 Globulin 2.9 Albumin/Globulin Ratio 1.3 Triglycerides 112 Cholesterol 91 L LDL Cholesterol, Calc 34 HDL Cholesterol 35 L Cholesterol/HDL Ratio 2.6 L TSH 0.47 L Ur Collection Type Urine Color Urine Clarity Urine pH Ur Specific [place] Urine Protein Urine Glucose (UA) Urine Ketones Urine Blood Urine Nitrite Urine Bilirubin Urine Urobilinogen (Auto) Ur Leukocyte Esterase Urine RBC Urine WBC Ur Squamous Epith Cells Urine Bacteria Ur Culture Indicated? ABG Interpretation ABG results: 04/11/25 14:49 VBG pH 7.45 VBG pCO2 45 VBG pO2 63 H VBG Base Excess 6 H Quality Measures Quality Measures VTE prophylaxis Assessment & Plan Assessment Current Active Medications: Generic Name Dose Route Start Last Admin Trade Name Freq PRN Reason Stop Dose Admin Acetaminophen 650 mg 04/11/25 13:24 Acetaminophen 325 Mg Tablet PO 05/11/25 13:23 Q6H PRN Fever >101.5 Albuterol/Ipratropium 3 ml 04/11/25 19:00 04/12/25 13:25 Albuterol/Ipratropium (Duoneb) Rt Jennifer 3 Ml Nebu INH 05/11/25 18:59 3 ml Q6HRRT LUCRETIA Administration Aspirin 81 mg 04/12/25 09:00 04/12/25 08:44 Aspirin Ec 81 Mg Tabec PO 05/12/25 08:59 81 mg QDAY LUCRETIA Administration Atorvastatin Calcium 80 mg 04/11/25 21:00 04/11/25 21:19 Atorvastatin Calcium 20 Mg Tablet PO 05/11/25 20:59 80 mg HS LUCRETIA Administration Dextrose 25 ml 04/11/25 13:55 Dextrose 50%-Water Inj 50 Ml Syringe IV 05/11/25 13:54 Q15MIN PRN BG 50-70 responsive npo pt Dextrose 50 ml 04/11/25 13:55 Dextrose 50%-Water Inj 50 Ml Syringe IV 05/11/25 13:54 Q15MIN PRN BG <50 OR BG <70 & pt unresponsive Glucagon 1 mg 04/11/25 13:55 Glucagon Inj 1 Mg Vial IM Q15MIN PRN BG <70, and no IV access Guaifenesin/Codeine Phosphate 5 ml 04/12/25 14:32 04/12/25 14:47 Guaifenesin/Cod Syrup 5 Ml Udc PO 05/12/25 14:31 5 ml Q4HR PRN Administration COUGH Protocol Heparin Sodium (Porcine) 5,000 unit 04/12/25 21:00 Heparin Sod Inj 5000 Unit/Ml Vial SC 04/26/25 20:59 Q12HR LUCRETIA Piperacillin/Tazobactam/Dextrose 3.375 gm in 50 mls @ 12.5 mls/hr 04/11/25 21:00 04/12/25 08:45 Zosyn IV 04/18/25 20:59 12.5 mls/hr Q12HR LUCRETIA Administration Protocol Insulin Human Lispro 0 unit 04/11/25 17:00 04/12/25 11:09 Insulin Lispro (Admelog) 1 Unit/0.01 Ml Unit SC 05/11/25 16:59 Not Given AC LUCRETIA Protocol Labetalol HCl 10 mg 04/11/25 19:23 Labetalol Inj 5 Mg/Ml Vial 4 Ml IVP 05/11/25 19:29 Q8H PRN SBP>160 Metoprolol Succinate 50 mg 04/12/25 11:00 04/12/25 12:14 Metoprolol Succinate Xl 25 Mg Tabcr PO 05/12/25 10:59 50 mg QDAY LUCRETIA Administration Morphine Sulfate 1 mg 04/11/25 13:24 Morphine Sulf Inj 4 Mg/Ml Vial IVP 04/16/25 13:23 Q4HR PRN PAIN SCALE 7-10 (Severe Nitroglycerin 0.4 mg 04/11/25 09:29 Nitroglycerin 0.4 Mg Subl Btl #25 SL Q5M PRN CHEST PAIN Ondansetron HCl 4 mg 04/11/25 13:24 Ondansetron Inj 2 Mg/Ml Inj 2 Ml IVP 05/11/25 13:23 Q6H PRN NAUSEA OR VOMITING Protocol Pharmacy Consult 1 each 04/12/25 09:00 Vancomycin Pharmacy To Dose 1 Each Each IV 05/12/25 08:59 QDAY PRN PROTOCOL Tamsulosin HCl 0.4 mg 04/12/25 09:00 04/12/25 08:44 Tamsulosin Hcl 0.4 Mg Capsule PO 05/12/25 08:59 0.4 mg QDAY LUCRETIA Administration Plan Patient is a 64 years old male with past medical history of coronary artery disease status post stents, hypertension, hyperlipidemia, diabetes mellitus, BPH, ESRD on hemodialysis M/W/F who presented with chest pain during hemodialysis session. Was found to be febrile, had elevation troponin. Cardiology consulted for elevated troponins. #NSTEMI II, demand ischemia #History of coronary artery disease status post stents Patient presented with chest pain during hemodialysis session, improved with nitroglycerin Has a history of CAD but has not been following with cardiology EKG shows inconsistent mild changes, no ST elevation Initial Troponin at 0.129 Patient underwent echocardiogram, shows normal left ventricular size and function, ejection fraction of 50 to 55%. - Heparin gtt discontinued 04/12/25, continue statin and antiplatlet --> ASA 81mg QD, Atorvastatin 80mg QD - Nitroglycerin as needed and morphine as needed for pain - oxygen as needed. #Sepsis #Possible community-acquired pneumonia #Acute hypoxic respiratory failure #ESRD on hemodialysis #Hypertensive urgency/emergency #Type II diabetes mellitus #BPH Primary care team to manage above conditions and ongoing care needs. The patient's management plan was discussed with my attending physician Dr. Hanks. Stephanie Sam, PGY-2
[2025-04-12] MEDS: ATORVASTATIN CALCIUM 20 MG TABLET 80 MG PO (21:06)
[2025-04-12] MEDS: HEPARIN SOD INJ 5000 UNIT/ML VIAL SC (21:07)
[2025-04-13] VITALS (35 sets, daily range): BP systolic 160–201; BP diastolic 66–112; PULSE 59–92; RESP 12–30; TEMP 36.2–37.6; O2SAT 95–100; BMI 23.6
[2025-04-13] MEDS: ALBUTEROL/IPRATROPIUM (Duoneb) RT SOL 3 ML NEBU INH ×3 (00:43→12:04)
[2025-04-13 06:53] LABS: Basophils # (Auto) 0.0 Thou/mm3 (0.0-0.2); Basophils % (Auto) 0 % (0-2.5); Eosinophils # (Auto) 0.2 Thou/mm3 (0.0-0.5); Eosinophils % (Auto) 2 % (0-10); Hematocrit 22.4 % (41.0-53.0); Immature Granulocytes Auto 0.06 Thou/mm3 (0.00-0.00); Lymphocytes # (Auto) 1.5 Thou/mm3 (1.0-4.8); Lymphocytes % (Auto) 11 % (10-50); Mean Corpuscular HGB Conc 33.5 g/dl (31.0-37.0); Mean Corpuscular Hemoglobin 24.1 pg (25.0-35.0); Mean Corpuscular Volume 72 fL (80-100); Monocytes # (Auto) 1.1 Thou/mm3 (0.0-0.8); Monocytes % (Auto) 8 % (0-12); Neutrophils # (Auto) 10.9 Thou/mm3 (1.8-7.7); Neutrophils % (Auto) 78 % (37-80); Nucleated Red Blood Cell # 0.00 Thou/mm3 (0.00-0.00); Nucleated Red Blood Cell % 0 /100 WBC (0); Platelet Count 224 Thou/mm3 (140-440); RDW Standard Deviation 40.4 fL (35.1-43.9); Red Blood Count 3.11 Miln/mm3 (4.50-5.90); White Blood Count 13.9 Thou/mm3 (3.8-10.6)
[2025-04-13 06:57] LABS: Hemoglobin 7.5 g/dL (13.5-16.0)
[2025-04-13 07:17] LABS: Alanine Aminotransferase 17 U/L (10-49); Albumin, Serum 3.7 gm/dL (3.4-4.8); Albumin/Globulin Ratio 1.3 (1.2-2.2); Alkaline Phosphatase 64 U/L (46-116); Anion Gap 17 (7-16); Aspartate Amino Transferase 24 U/L (0-34); BUN/Creatinine Ratio 6 Ratio (12-20); Bilirubin,Total 0.4 mg/dL (0.3-1.2); Blood Urea Nitrogen 43 mg/dL (9-23); Calcium 8.8 mg/dL (8.3-10.6); Calcium (Corrected) 9.0 mg/dL (8.5-10.1); Carbon Dioxide 26.3 mMol/L (20.0-31.0); Chloride 96 mMol/L (98-107); Creatinine (Component) 7.2 mg/dL (0.6-1.3); Estimated Creatinine Clearance 9.3 mL/min (>60); Globulin 2.9 gm/dL (2.3-3.5); Glucose 134 mg/dL (74-106); Magnesium 2.5 mg/dL (1.6-2.6); Osmolality,Calculated 290 (275-295); Phosphorous 4.3 mg/dL (2.4-5.1); Potassium 3.4 mMol/L (3.4-5.1); Sodium 139 mMol/L (136-145); Total Protein 6.6 gm/dL (5.7-8.2); eGFR 8 See Note
[2025-04-13 09:19] LABS: Vancomycin,Random 13.3 mcg/mL
[2025-04-13] MEDS: ASPIRIN EC 81 MG TABEC PO (09:22)
[2025-04-13] MEDS: METOPROLOL SUCCINATE XL 25 MG TABCR 50 MG PO (09:22)
[2025-04-13] MEDS: TAMSULOSIN HCL 0.4 MG CAPSULE PO (09:22)
[2025-04-13] MEDS: HEPARIN SOD INJ 5000 UNIT/ML VIAL SC ×2 (09:23→22:34)
[2025-04-13] MEDS: PIPER/TAZO 3.375 GM PREMIX 3.375 GM/50 ML BAG IV ×2 (09:23→22:34)
[2025-04-13] MEDS: CLOPIDOGREL BISULFATE 75 MG TABLET PO (09:26)
[2025-04-13] MEDS: FINASTERIDE 5 MG TABLET PO (09:26)
[2025-04-13] MEDS: FOLIC ACID 1 MG TABLET PO (09:26)
--- NOTE | 2025-04-13 10:40 | ESPR_ITS ---
Documentation for date of: 04/13/25 Subjective Subjective Interval history: Mr. Avila is a 64M with past medical history of coronary artery disease status post stent placement x 2, ESRD on hemodialysis M/W/F, hypertension, hyperlipidemia type 2 diabetes mellitus, BPH who presented initially on 04/11/25 with complaint of substernal chest pain while receiving dialysis session. Patient stated he received cardiac catheterization about 20 years ago but has not been keeping up with these follow-ups. He was admitted for NSTEMI. 04/12/25: NAOE. Trop peaked at 0.219. Heparin gtt discontinued. Patient's elevated trop is likely due to ESRD, will continue antiplatelet and statin per cardiology recommendation. WBC decreased to 17 from 19.5 today, Bcx NGTD, continue empiric abx for now. On exam, patient is on BiPAP due to hypoxia on RA per RN. Patient received 1.8L of fluid in the ED per sepsis bolus, will continue to monitor oxygen status, if fluid overloaded, may require dialysis. 04/13/25: NAOE. Patient reports unable to tolerate NC off BiPAP. Orthopenic likely due to fluid overload. Hgb < 8 today, plan to transfuse 1pRBC with dialysis today, nephrology consulted. On exam, patient complains of right lower abdomen/groin pain, consistent with his prior symptoms when he had a pyelonephritis. CT abd scan from 04/10/25 revealed perinephric stranding and urinary bladder wall thickening, consider cystitis and UTI. Bcx NG 48H, Urine Cx negative, however, given his initial elevated WBC and CT findings, the source of his infection is likely kidney/urinary tract. Will continue Zosyn for now and discontinue vanco. Exam Vital Signs Temp Pulse Resp BP Pulse Ox O2 Del Method O2 Flow Rate 97.2 F 85 30 H 167/66 H 98 BiPAP 5 04/13/25 07:54 04/13/25 09:26 04/13/25 07:54 04/13/25 09:26 04/13/25 07:54 04/13/25 07:54 04/12/25 20:00 FiO2 35 04/13/25 06:44 Narrative Exam General: Awake and in no acute distress. A/O x 3. HEENT: Normocephalic, atraumatic, mucous membranes moist. Heart: Regular rate and rhythm Lungs: Clear to auscultation with no wheezing or crackles. Abdomen: Soft, nondistended, nontender. No guarding or rebound tenderness. Neurologic: Alert and oriented x3, no gross neurological deficit, and patient able to move all 4 extremities. Extremities:No pitting edema in lower extremities. Skin: Dry/clean/intact. No rash, no ecchymoses. Objective Labs 04/13/25 05:32 04/13/25 05:32 Labs: Laboratory Results - last 24 hr 04/13/25 05:32 WBC 13.9 H RBC 3.11 L Hgb 7.5 L Hct 22.4 L MCV 72 L MCH 24.1 L MCHC 33.5 RDW Std Deviation 40.4 Plt Count 224 D Neut % (Auto) 78 Lymph % (Auto) 11 [place] % (Auto) 8 Eos % (Auto) 2 Baso % (Auto) 0 Neut # (Auto) 10.9 H Lymph # (Auto) 1.5 [place] # (Auto) 1.1 H Eos # (Auto) 0.2 Baso # (Auto) 0.0 Immature Gran # (Auto) 0.06 H Absolute Nucleated RBC 0.00 Immature Gran % 0 Nucleated RBC % 0 Sodium 139 Potassium 3.4 Chloride 96 L Carbon Dioxide 26.3 Anion Gap 17 H BUN 43 H Creatinine 7.2 H* D Estim Creat Clear Calc 9.3 L eGFR 8 L* BUN/Creatinine Ratio 6 L Glucose 134 H Calculated Osmolality 290 Calcium 8.8 Corrected Calcium 9.0 Phosphorus 4.3 Magnesium 2.5 Total Bilirubin 0.4 AST 24 ALT 17 Alkaline Phosphatase 64 Total Protein 6.6 Albumin 3.7 Globulin 2.9 Albumin/Globulin Ratio 1.3 Random Vancomycin 13.3 ABG Interpretation ABG results: 04/11/25 14:49 VBG pH 7.45 VBG pCO2 45 VBG pO2 63 H VBG Base Excess 6 H Quality Measures Quality Measures VTE prophylaxis Assessment & Plan Assessment Current Active Medications: Generic Name Dose Route Start Last Admin Trade Name Freq PRN Reason Stop Dose Admin Acetaminophen 650 mg 04/11/25 13:24 Acetaminophen 325 Mg Tablet PO 05/11/25 13:23 Q6H PRN Fever >101.5 Acetylcysteine 3 ml 04/13/25 13:00 Acetylcysteine Jennifer 20% 4 Ml Nebu INH 05/13/25 12:59 Q6HRRT LUCRETIA Albuterol/Ipratropium 3 ml 04/11/25 19:00 04/13/25 06:40 Albuterol/Ipratropium (Duoneb) Rt Jennifer 3 Ml Nebu INH 05/11/25 18:59 3 ml Q6HRRT LUCRETIA Administration Amlodipine Besylate 10 mg 04/13/25 09:30 04/13/25 09:26 Amlodipine Besylate 5 Mg Tablet PO 05/13/25 09:29 10 mg QDAY LUCRETIA Administration Aspirin 81 mg 04/12/25 09:00 04/13/25 09:22 Aspirin Ec 81 Mg Tabec PO 05/12/25 08:59 81 mg QDAY LUCRETIA Administration Atorvastatin Calcium 80 mg 04/11/25 21:00 04/12/25 21:06 Atorvastatin Calcium 20 Mg Tablet PO 05/11/25 20:59 80 mg HS LUCRETIA Administration Clopidogrel Bisulfate 75 mg 04/13/25 09:30 04/13/25 09:26 Clopidogrel Bisulfate 75 Mg Tablet PO 05/13/25 09:29 75 mg QDAY LUCRETIA Administration Dextrose 25 ml 04/11/25 13:55 Dextrose 50%-Water Inj 50 Ml Syringe IV 05/11/25 13:54 Q15MIN PRN BG 50-70 responsive npo pt Dextrose 50 ml 04/11/25 13:55 Dextrose 50%-Water Inj 50 Ml Syringe IV 05/11/25 13:54 Q15MIN PRN BG <50 OR BG <70 & pt unresponsive Finasteride 5 mg 04/13/25 09:30 04/13/25 09:26 Finasteride 5 Mg Tablet PO 05/13/25 09:29 5 mg QDAY LUCRETIA Administration Folic Acid 1 mg 04/13/25 09:30 04/13/25 09:26 Folic Acid 1 Mg Tablet PO 05/13/25 09:29 1 mg QDAY LUCRETIA Administration Glucagon 1 mg 04/11/25 13:55 Glucagon Inj 1 Mg Vial IM Q15MIN PRN BG <70, and no IV access Guaifenesin 200 mg 04/13/25 12:00 Guaifenesin Syrup 200 Mg/10 Ml Udc PO 05/13/25 11:59 QID LUCRETIA Protocol Guaifenesin/Codeine Phosphate 5 ml 04/12/25 14:32 04/12/25 14:47 Guaifenesin/Cod Syrup 5 Ml Udc PO 05/12/25 14:31 5 ml Q4HR PRN Administration COUGH Protocol Heparin Sodium (Porcine) 5,000 unit 04/12/25 21:00 04/13/25 09:23 Heparin Sod Inj 5000 Unit/Ml Vial SC 04/26/25 20:59 5,000 unit Q12HR LUCRETIA Administration Piperacillin/Tazobactam/Dextrose 3.375 gm in 50 mls @ 12.5 mls/hr 04/11/25 21:00 04/13/25 09:23 Zosyn IV 04/18/25 20:59 12.5 mls/hr Q12HR LUCRETIA Administration Protocol Insulin Human Lispro 0 unit 04/11/25 17:00 04/13/25 09:05 Insulin Lispro (Admelog) 1 Unit/0.01 Ml Unit SC 05/11/25 16:59 Not Given AC LUCRETIA Protocol Labetalol HCl 10 mg 04/11/25 19:23 Labetalol Inj 5 Mg/Ml Vial 4 Ml IVP 05/11/25 19:29 Q8H PRN SBP>160 Metoprolol Succinate 50 mg 04/12/25 11:00 04/13/25 09:22 Metoprolol Succinate Xl 25 Mg Tabcr PO 05/12/25 10:59 50 mg QDAY [place]CRETIA Administration Morphine Sulfate 1 mg 04/11/25 13:24 Morphine Sulf Inj 4 Mg/Ml Vial IVP 04/16/25 13:23 Q4HR PRN PAIN SCALE 7-10 (Severe Nitroglycerin 0.4 mg 04/11/25 09:29 Nitroglycerin 0.4 Mg Subl Btl #25 SL Q5M PRN CHEST PAIN Ondansetron HCl 4 mg 04/11/25 13:24 Ondansetron Inj 2 Mg/Ml Inj 2 Ml IVP 05/11/25 13:23 Q6H PRN NAUSEA OR VOMITING Protocol Tamsulosin HCl 0.4 mg 04/12/25 09:00 04/13/25 09:22 Tamsulosin Hcl 0.4 Mg Capsule PO 05/12/25 08:59 0.4 mg QDAY LUCRETIA Administration Plan Patient is a 64 years old male with past medical history of coronary artery disease status post stents, hypertension, hyperlipidemia, diabetes mellitus, BPH, ESRD on hemodialysis M/W/F who presented with chest pain during hemodialysis session. Was found to be febrile, had elevation troponin. Will admit the patient for management of ACS, and sepsis, unclear source. #ACS #NSTEMI type I versus 2 #History of coronary artery disease status post stents Patient presented with chest pain during hemodialysis session, improved with nitroglycerin Has a history of CAD but has not been following with cardiology EKG shows inconsistent mild changes, no ST elevation Initial Troponin at 0.129 Cardiology contacted by ED, recommended to restart the patient on aspirin, statin and heparin drip, appreciate recommendations. Patient underwent echocardiogram, shows normal left ventricular size and function, ejection fraction of 50 to 55%. - Heparin gtt discontinued 04/12/25, continue statin and antiplatlet per cardiology recs. --> ASA 81mg QD, Atorvastatin 80mg QD - Nitroglycerin as needed and morphine as needed for pain - oxygen as needed. #Sepsis #Possible community-acquired pneumonia #Possible UTI/pyelonephritis/cystitis Source not fully clear, chest x-ray has bilateral infiltrates Patient had fever, tachypnea, leukocytosis, Elevated troponin, elevated procalcitonin Patient received aggressive IV hydration in the ED Patient reports RLQ/groin, similar to his prior pyelonephitis. CT scan on 04/10/25 revealed perinephric stranding and bladde wall thickening, concerning for cystitis or pyelonephritis despite negative UA. - Continue Zosyn (04/11 ~ 04/18), vanco discontinued 04/13/25. - Blood cultures NGTD. - Urine cultures negative #Acute hypoxic respiratory failure #Concern for HFpEF exacerbation Patient started having increased work of breathing and shortness of breath after IV fluid resuscitation BNP was elevated at 1543 - Continue BiPAP as needed, - D/C lasix given patient is ESRD on dialysis, oliguric - Strict ins and out, fluid restriction, daily weight - May require dialysis if increase O2 demand. #ESRD on hemodialysis #Anemia of chronic disease Only received partial hemodialysis today - Nephrology consulted, appreciate recommendations - daily labs, monitor chemistry - renal dose med, avoid nephrotoxin - no recent contrast or offending mediations - Transfuse if < 8. - Plan for dialysis today with 1pRBC transfusion #Hypertensive urgency/emergency Patient had blood pressure of 190/76 on presentation Received metoprolol 25 in the ED Blood pressure improved to 149/86 this evening Ordered labetalol as needed - Continue home metoprolol 50mg QD #Type II diabetes mellitus Started on insulin sliding scale A1c 7.2 - Frequent glucose checks, hypoglycemia protocol in place - ISS #BPH - chronic medical problem - continue home tamsulosin Health maintenance Dispo: Telemetry for ACS, acute hypoxic respiratory failure DVT prophylaxis: Heparin SC GI prophylaxis: N/A Antibiotics: Zosyn Bowel Regimen: N/A Diet: Renal Diet Lines: Peripheral IV Code status: Full code Case discussed with my attending Dr. Luh Mathias, PGY 1 Attending Provider Attestation/Addendum I have seen and examined the patient. I was physically present for the dao portions of the services provided including history, physical exam, diagnosis, treatment plans and orders. I agree with assessment and plan of care as documented by residents. Patient seen and examined at bedside this morning. Continues to complain of shortness of breath. Attempt was made in the morning to switch him to nasal cannula but patient had increased shortness of breath and increased work of breathing and was resumed back on BiPAP. Continues to be on IV Zosyn. Blood cultures are negative for 48 hours, we will discontinue vancomycin. Hemoglobin level dropped to 7.5 this morning, patient has history of CAD, we will transfuse him with 1 unit of PRBC today. WBC count is improving. With drop in hemoglobin, we will also obtain iron studies. With concern for volume discussed with nephrology, agreed on hemodialysis session today with removal of fluid, appreciate recommendations. Even though this this note was carefully revised there may still be minor errors in customer services supervisor due to voice recognition software. Guera Arvizu MD
[2025-04-13 10:48] LABS: Iron 20 mcg/dL (65-175); Percent Iron Saturation 13 % (20-55); Total Iron Binding Capacity 149 mcg/dL (250-425); Unsaturated Iron Binding 129 (225-295)
[2025-04-13] MEDS: ACETYLCYSTEINE SOL 20% 4 ML NEBU 3 ML INH (12:04)
[2025-04-13] MEDS: guaiFENesin SYRUP 200 MG/10 ML UDC PO ×3 (12:23→22:34)
--- NOTE | 2025-04-13 15:57 | PC.SS ---
Rounding: Pt to receive one more HD session
--- NOTE | 2025-04-13 17:05 | PD.RESCONSUL ---
HPI Data of Consult Consult date: 04/13/25 Requesting Physician: Guera Arvizu MD Admitting Provider: Guera Arvizu MD Attending Provider: Guera Arvizu MD Primary Care Provider: Physician No Primary/Family Consult Narrative Reason for consult: Fluid overload requiring urgent HD History of present illness: Patient is a 65 years old male with past medical history of coronary artery disease status post stent placement x 2, ESRD on hemodialysis, hypertension, hyperlipidemia type 2 diabetes mellitus, BPH who presented to the ED with complaint of substernal chest pain while receiving dialysis session. Patient stated about 1.5 hours after the dialysis started, patient started having chest pain without any radiation. He received nitroglycerin sublingual at the dialysis center, which provided relief. Patient received nitroglycerin paste and aspirin with EMS. States that he received cardiac catheterization about 20 years ago but has not been keeping up with these follow-ups. At the time of exam, patient appeared short of breath but denied any chest pain, palpitations. He has been having fevers since yesterday along with shortness of breath and cough. Denies abdominal pain, nausea, vomiting, swelling of the limbs. In the ED, patient was hypertensive with blood pressure of 190/76, had temperature of 102.4, respiratory rate 38. He was started on nasal cannula but with worsening shortness of breath and increased work of breathing, he was switched to BiPAP. Lab results show WBC of 19.5 with neutrophilic predominance, hemoglobin 8.8, MCV 72. He had potassium of 3.0, creatinine 3.2, phosphorus 2.0 and troponin 0.219, Wells downtrended to 0.205. BNP at 940 was 1543. Procalcitonin 3.22. Urinalysis was negative for pyuria. Patient underwent echocardiogram, which showed ejection fraction of 50 to 55%, normal left ventricular size and systolic function. Chest x-ray was obtained, shows vascular congestion. Patient was started on IV antibiotics and given IV fluid bolus as well as sepsis protocol. Cardiology was contacted by ED, recommended starting patient on antiplatelet, statin and anticoagulation as per ACS protocol. Past medical history: coronary artery disease status post stent placement x 2, ESRD on hemodialysis, hypertension, hyperlipidemia type 2 diabetes mellitus, BPH Past surgical history: Foot surgery Social history:[id number] smoking history, quit long time ago, denies alcohol abuse, denies illicit drug use Patient admitted for management of ACS, and sepsis, unclear source. Nephrology consulted on 04/13/25 for shortness of breath secondary to fluid overload, requiring urgent HD. 04/13/25: Patient seen and assessed at bedside. Has worsening of breathing today requiring BiPAP, likely secondary to fluid overload from fluid bolus in ED yesterday. Hgb 7.5, will transfuse 1 unit pRBCs with dialysis. Patient HD schedule MW. cc:: cc: Guera Arvizu MD Exam Vital Signs Temp Pulse Resp BP Pulse Ox O2 Del Method O2 Flow Rate 98.3 F 91 18 173/64 H 93 L Nasal Cannula 4 04/14/25 08:24 04/14/25 08:30 04/14/25 08:24 04/14/25 08:30 04/14/25 08:24 04/14/25 04:00 04/14/25 08:24 FiO2 4 04/14/25 06:43 Narrative Exam Physical Exam General: Awake and in no acute distress. Conversational and non-toxic appearing. On BiPAP HEENT: Normocephalic, atraumatic, mucous membranes moist. Heart: Regular rate and rhythm, normal S1 and S2, no murmurs. Lungs: Bibasilar crackles with diffuse wheezing. Abdomen: Soft, nondistended, nontender, positive bowel sounds. No guarding or rebound tenderness. Neurologic: Alert and oriented x3, no gross neurological deficit, and patient able to move all 4 extremities. Extremities: No edema. Skin: No rash or ecchymoses. Results Labs 04/14/25 04:23 04/14/25 04:23 Labs: Short CBC 04/13/25 04/14/25 Range/Units 22:18 04:23 WBC 11.3 H (3.8-10.6) Thou/mm3 Hgb 9.6 L D 8.4 L (13.5-16.0) g/dL Hct 28.2 L 25.4 L (41.0-53.0) % Plt Count 227 (140-440) Thou/mm3 BMP 04/14/25 04:23 Sodium 141 Potassium 3.3 L Chloride 98 Carbon Dioxide 27.8 BUN 24 H Creatinine 4.7 H* D Glucose 120 H Calcium 8.9 Liver Function 04/14/25 Range/Units 04:23 Total Bilirubin 0.4 (0.3-1.2) mg/dL AST 26 (0-34) U/L ALT 26 (10-49) U/L Alkaline Phosphatase 95 D (46-116) U/L Albumin 3.8 (3.4-4.8) gm/dL ABG Interpretation ABG results: 04/11/25 14:49 VBG pH 7.45 VBG pCO2 45 VBG pO2 63 H VBG Base Excess 6 H Quality Measures Quality Measures VTE prophylaxis Medications Home Medications and Allergies Home Medications ?Medication ?Instructions ?Recorded ?Confirmed ?Type atorvastatin 40 mg tablet 40 mg PO QPM 09/13/20 04/11/25 History clopidogrel 75 mg tablet (Plavix) 75 mg PO QDAY 09/13/20 04/11/25 History ergocalciferol (vitamin D2) 1,250 1 unit PO QWEEK 09/13/20 04/11/25 History mcg (50,000 unit) capsule (Vitamin D2) gemfibrozil 600 mg tablet 600 mg PO BID 09/13/20 04/11/25 History amlodipine 10 mg tablet 10 mg PO QDAY 02/04/23 04/11/25 History aspirin 81 mg chewable tablet 81 mg PO PRN PRN chest discomfort 02/04/23 04/11/25 History clonidine HCl 0.1 mg tablet 0.1 mg PO BID 02/04/23 04/11/25 History finasteride 5 mg tablet 5 mg PO QDAY 02/04/23 04/11/25 History folic acid 1 mg tablet 1 mg PO QDAY 03/27/23 04/11/25 History Allergies Allergy/AdvReac Type Severity Reaction Status Date / Time No Known Allergies Allergy Verified 04/10/25 11:55 Visit Medications Acetaminophen (Acetaminophen 325 Mg Tablet) 650 mg PO Q6H PRN PRN Reason: Fever >101.5 Stop: 05/11/25 13:23 Acetylcysteine (Acetylcysteine Jennifer 20% 4 Ml Nebu) 3 ml INH Q6HRRT [facility] Stop: 05/13/25 12:59 Last Admin: 04/14/25 06:43 Dose: 3 ml Albuterol/Ipratropium (Albuterol/Ipratropium (Duoneb) Rt Jennifer 3 Ml Nebu) 3 ml INH Q6HRRT [facility] Stop: 05/11/25 18:59 Last Admin: 04/14/25 06:43 Dose: 3 ml Amlodipine Besylate (Amlodipine Besylate 5 Mg Tablet) 10 mg PO QDAY [facility] Stop: 05/13/25 09:29 Last Admin: 04/13/25 09:26 Dose: 10 mg Aspirin (Aspirin Ec 81 Mg Tabec) 81 mg PO QDAY [facility] Stop: 05/12/25 08:59 Last Admin: 04/13/25 09:22 Dose: 81 mg Atorvastatin Calcium (Atorvastatin Calcium 20 Mg Tablet) 80 mg PO HS [facility] Stop: 05/11/25 20:59 Last Admin: 04/13/25 22:35 Dose: 80 mg Clonidine (Clonidine Hcl 0.1 Mg Tablet) 0.1 mg PO BID [facility] Stop: 05/14/25 08:59 Clopidogrel Bisulfate (Clopidogrel Bisulfate 75 Mg Tablet) 75 mg PO QDAY [facility] Stop: 05/13/25 09:29 Last Admin: 04/13/25 09:26 Dose: 75 mg Dextrose (Dextrose 50%-Water Inj 50 Ml Syringe) 25 ml IV Q15MIN PRN PRN Reason: BG 50-70 responsive npo pt Stop: 05/11/25 13:54 Dextrose (Dextrose 50%-Water Inj 50 Ml Syringe) 50 ml IV Q15MIN PRN PRN Reason: BG <50 OR BG <70 & pt unresponsive Stop: 05/11/25 13:54 Finasteride (Finasteride 5 Mg Tablet) 5 mg PO QDAY [facility] Stop: 05/13/25 09:29 Last Admin: 04/13/25 09:26 Dose: 5 mg Folic Acid (Folic Acid 1 Mg Tablet) 1 mg PO QDAY [facility] Stop: 05/13/25 09:29 Last Admin: 04/13/25 09:26 Dose: 1 mg Glucagon (Glucagon Inj 1 Mg Vial) 1 mg IM Q15MIN PRN PRN Reason: BG <70, and no IV access Guaifenesin (Guaifenesin Syrup 200 Mg/10 Ml Udc) 200 mg PO QID [facility]; Protocol Stop: 05/13/25 11:59 Last Admin: 04/14/25 06:02 Dose: Not Given Guaifenesin/Codeine Phosphate (Guaifenesin/Cod Syrup 5 Ml Udc) 5 ml PO Q4HR PRN; Protocol PRN Reason: COUGH Stop: 05/12/25 14:31 Last Admin: 04/12/25 14:47 Dose: 5 ml Heparin Sodium (Porcine) (Heparin Sod Inj 5000 Unit/Ml Vial) 5,000 unit SC Q12HR [facility] Stop: 04/26/25 20:59 Last Admin: 04/13/25 22:34 Dose: 5,000 unit Piperacillin/Tazobactam/Dextrose (Zosyn) 3.375 gm in 50 mls @ 12.5 mls/hr IV Q12HR [facility]; Protocol Stop: 04/18/25 20:59 Last Admin: 04/13/25 22:34 Dose: 12.5 mls/hr Insulin Human Lispro (Insulin Lispro (Admelog) 1 Unit/0.01 Ml Unit) 0 unit SC AC [facility]; Protocol Stop: 05/11/25 16:59 Last Admin: 04/14/25 07:34 Dose: Not Given Labetalol HCl (Labetalol Inj 5 Mg/Ml Vial 4 Ml) 10 mg IVP Q8H PRN PRN Reason: SBP>160 Stop: 05/11/25 19:29 Metoprolol Succinate (Metoprolol Succinate Xl 25 Mg Tabcr) 100 mg PO QDAY [facility] Stop: 05/14/25 08:59 Morphine Sulfate (Morphine Sulf Inj 4 Mg/Ml Vial) 1 mg IVP Q4HR PRN PRN Reason: PAIN SCALE 7-10 (Severe Stop: 04/16/25 13:23 Nitroglycerin (Nitroglycerin 0.4 Mg Subl Btl #25) 0.4 mg SL Q5M PRN PRN Reason: CHEST PAIN Ondansetron HCl (Ondansetron Inj 2 Mg/Ml Inj 2 Ml) 4 mg IVP Q6H PRN; Protocol PRN Reason: NAUSEA OR VOMITING Stop: 05/11/25 13:23 Tamsulosin HCl (Tamsulosin Hcl 0.4 Mg Capsule) 0.4 mg PO QDAY [facility] Stop: 05/12/25 08:59 Last Admin: 04/13/25 09:22 Dose: 0.4 mg Discontinued Medications Acetaminophen (Acetaminophen 325 Mg Tablet) 650 mg PO X1 ONE Stop: 04/11/25 10:08 Last Admin: 04/11/25 10:26 Dose: 650 mg Aspirin (Aspirin 81 Mg Chew) 162 mg PO X1 ONE Stop: 04/11/25 09:30 Last Admin: 04/11/25 10:26 Dose: 162 mg Furosemide (Furosemide Inj 10 Mg/Ml 4ml Vial) 40 mg IVP X1 ONE Stop: 04/11/25 13:54 Last Admin: 04/11/25 14:10 Dose: 40 mg Furosemide (Furosemide Inj 10 Mg/Ml 4ml Vial) 40 mg IVP BIDD [facility] Stop: 05/11/25 19:29 Last Admin: 04/12/25 05:22 Dose: 40 mg Heparin Sodium (Porcine) (Heparin Sod Inj 5000 Unit/Ml Vial) 3,700 unit 60 unit/kg (3700 unit) IV X1 ONE; Protocol Stop: 04/11/25 10:31 Last Admin: 04/11/25 11:03 Dose: 3,700 unit Heparin Sodium (Porcine) (Heparin Sod Inj 5000 Unit/Ml Vial) 1,850 unit 30 unit/kg (1850 unit) IV X1 ONE; Protocol Stop: 04/11/25 18:06 Last Admin: 04/11/25 18:13 Dose: 1,850 unit Hydrochlorothiazide (Hydrochlorothiazide 12.5 Mg Capsule) 25 mg PO QDAY [facility] Stop: 05/14/25 08:59 Heparin Sodium/Dextrose (Heparin In D5w Ivpb) 25,000 unit in 250 mls @ 7.44 mls/hr IV .Q24H [facility]; Protocol Stop: 04/25/25 10:44 Last Admin: 04/13/25 17:59 Dose: Not Given Lactated Ringer's (Lactated Ringers) 1,845 mls @ 1,845 mls/hr 30 ml/kg infuse over 60 min (1845 ml) IV .Q1H ONE Stop: 04/11/25 11:07 Last Infusion: 04/11/25 12:30 Dose: Infused Magnesium Sulfate (Magnesium Sulfate Ivpb) 4 gm in 50 mls @ 12.5 mls/hr IV X1 ONE Stop: 04/11/25 14:32 Last Infusion: 04/11/25 15:32 Dose: Infused Cefepime HCl 2 gm/ Sodium (Chloride) 50 mls @ 100 mls/hr IV X1 ONE Stop: 04/11/25 11:44 Last Infusion: 04/11/25 12:03 Dose: Infused Vancomycin/Sodium Chloride (Vancomycin/Ns 1 Gm Ivpb) 200 mls @ 120 mls/hr IV X1 ONE Stop: 04/11/25 13:09 Last Infusion: 04/11/25 13:54 Dose: Infused Piperacillin Sod/Tazobactam (Sod 4.5 gm/ Sodium Chloride) 100 mls @ 200 mls/hr IV X1 ONE; Protocol Stop: 04/11/25 15:14 Last Infusion: 04/11/25 17:55 Dose: Infused Vancomycin/Sodium Chloride (Vancomycin/Ns 500 Mg Ivpb) 100 mls @ 120 mls/hr IV X1 ONE Stop: 04/13/25 10:49 Last Admin: 04/13/25 10:23 Dose: Not Given Lidocaine (Lidocaine Oint 5% 35.44 Gm Tube) 0 gm TOP X1 ONE Stop: 04/13/25 15:50 Last Admin: 04/13/25 18:05 Dose: 1 applicatio Metoprolol Succinate (Metoprolol Succinate Xl 25 Mg Tabcr) 25 mg PO X1 ONE Stop: 04/11/25 09:49 Last Admin: 04/11/25 10:26 Dose: 25 mg Metoprolol Succinate (Metoprolol Succinate Xl 25 Mg Tabcr) 50 mg PO QDAY [facility] Stop: 05/12/25 10:59 Last Admin: 04/13/25 09:22 Dose: 50 mg Pharmacy Consult (Vancomycin Pharmacy To Dose 1 Each Each) 1 each IV X1 ONE Stop: 04/11/25 11:17 Last Admin: 04/11/25 12:09 Dose: Not Given Pharmacy Consult (Vancomycin Pharmacy To Dose 1 Each Each) 1 each IV QDAY PRN PRN Reason: PROTOCOL Stop: 05/12/25 08:59 Assessment & Plan Plan Patient is a 64 year old male with PMH of coronary artery disease status post stent placement x 2, ESRD on hemodialysis, hypertension, hyperlipidemia type 2 diabetes mellitus, BPH who was admitted on 04/11/25 for management of ACS, and sepsis, unclear source. Nephrology consulted on 04/13/25 for shortness of breath secondary to fluid overload, requiring urgent HD. #AHRF 2/2 fluid overload #ESRD on HD MWF - Presented on 04/11/25 with chest pain that started about 1.5 hours after the dialysis started. Chest x-ray in ED was obtained, showed vascular congestion. Follows Dr. Cadena. - Creatinine 5.2 on admission -> 7.2 (04/13), baseline 4.6-5.1 in 2022 - S/p IV fluid 1.8L in ED due to concern for sepsis (WBC 19.5 with neutrophilic predominance, BP 190/76, temperature 102.4, respiratory rate 38) - Appears fluid overloaded on exam (worsening crackles on exam, now orthopnic). Had been unable to wean off BiPAP since 04/11/25. Plan: - HD with ultrafiltration, plan to remove 3L as tolerated. Will transfuse 1 unit pRBC with dialysis as Hgb dropped to 7.5. - Will reassess tomorrow if patient requires dialysis again. 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 Angela. Sheri Richardson DO, PGY-1 Attending Provider Attestation/Addendum Patient seen and examined with resident physician Dr. Richardson. Note reviewed, agree with findings and recommendations. Emergency dialysis ordered for shortness of breath-patient currently seen on dialysis. Tolerating dialysis without any problems. Hemodialysis for 3 hours, 2K, ultrafiltration 2-3 L, Epogen 6000, no heparin ordered. Plan of care discussed with the dialysis nurse. Please see dialysis flowsheet for further details. Next dialysis scheduled for tomorrow.
[2025-04-13] MEDS: LIDOCAINE OINT 5% 35.44 GM TUBE TOP (18:05)
[2025-04-13 22:28] LABS: Hematocrit 28.2 % (41.0-53.0); Hemoglobin 9.6 g/dL (13.5-16.0)
[2025-04-13] MEDS: ATORVASTATIN CALCIUM 20 MG TABLET 80 MG PO (22:35)
[2025-04-14] VITALS (34 sets, daily range): BP systolic 138–191; BP diastolic 52–90; PULSE 62–98; RESP 12–28; TEMP 36.2–37.4; O2SAT 93–99; BMI 23.6
--- NOTE | 2025-04-14 00:14 | ESPR_ITS ---
RE: GRETEL VANCE : 1960 DATE OF SERVICE: 04/13/2025 SUBJECTIVE: The patient is a 64-year-old male with history chronic kidney disease, status post stent placement more than 20 years ago. He came to us with atypical shortness of breath, congestive heart failure, HFpEF due to volume overload. Patient incidentally is on hemodialysis. The patient did have some initial chest discomfort, which went away. Most of it is atypical. Clinically, he is feeling well. No orthopnea, PND, no shortness of breath. OBJECTIVE: Exam shows his blood pressure is 170/60. Neck: Supple. No JVD. Lungs: Decreased breath sounds. Heart: S1, S2. Abdomen: Thin and soft. Extremities: No edema. and Rectal: Not performed. IMPRESSION: 1. Acute decompensated congestive heart failure secondary to volume overload. 2. Chronic kidney disease, stage V. 3. Atypical chest pain, not due to myocardial infarction, possibly type 2. 3. Severe hypertension, uncontrolled. 4. Congestive heart failure with preserved ejection fraction. RECOMMENDATIONS: I recommend aggressive management of hypertension. Patient is already receiving metoprolol 50 mg daily. Possibly increase to 100 mg as tolerated. Also recommend continuing his amlodipine 10 mg daily for hypertension. Might even consider adding hydralazine. For now, we will increase the beta-timbo dose to 100 mg daily. Patient also has an infection, underlying pneumonia, and is getting a broad-spectrum antibiotic. DT: 23:09:04 TT: 00:13:00 Ref: [id number] - TID: [id number]
[2025-04-14] MEDS: ACETYLCYSTEINE SOL 20% 4 ML NEBU 3 ML INH ×4 (01:29→19:06)
[2025-04-14] MEDS: ALBUTEROL/IPRATROPIUM (Duoneb) RT SOL 3 ML NEBU INH ×4 (01:29→19:06)
[2025-04-14 04:56] LABS: Basophils # (Auto) 0.1 Thou/mm3 (0.0-0.2); Basophils % (Auto) 0 % (0-2.5); Eosinophils # (Auto) 0.2 Thou/mm3 (0.0-0.5); Eosinophils % (Auto) 2 % (0-10); Hematocrit 25.4 % (41.0-53.0); Immature Granulocytes Auto 0.04 Thou/mm3 (0.00-0.00); Lymphocytes # (Auto) 1.3 Thou/mm3 (1.0-4.8); Lymphocytes % (Auto) 12 % (10-50); Mean Corpuscular HGB Conc 33.1 g/dl (31.0-37.0); Mean Corpuscular Hemoglobin 24.5 pg (25.0-35.0); Mean Corpuscular Volume 74 fL (80-100); Monocytes # (Auto) 0.8 Thou/mm3 (0.0-0.8); Monocytes % (Auto) 7 % (0-12); Neutrophils # (Auto) 8.9 Thou/mm3 (1.8-7.7); Neutrophils % (Auto) 79 % (37-80); Nucleated Red Blood Cell # 0.00 Thou/mm3 (0.00-0.00); Nucleated Red Blood Cell % 0 /100 WBC (0); Platelet Count 227 Thou/mm3 (140-440); RDW Standard Deviation 42.5 fL (35.1-43.9); Red Blood Count 3.43 Miln/mm3 (4.50-5.90); White Blood Count 11.3 Thou/mm3 (3.8-10.6)
[2025-04-14 04:59] LABS: Hemoglobin 8.4 g/dL (13.5-16.0)
[2025-04-14 05:12] LABS: Alanine Aminotransferase 26 U/L (10-49); Albumin, Serum 3.8 gm/dL (3.4-4.8); Albumin/Globulin Ratio 1.2 (1.2-2.2); Alkaline Phosphatase 95 U/L (46-116); Anion Gap 15 (7-16); Aspartate Amino Transferase 26 U/L (0-34); BUN/Creatinine Ratio 5 Ratio (12-20); Bilirubin,Total 0.4 mg/dL (0.3-1.2); Blood Urea Nitrogen 24 mg/dL (9-23); Calcium 8.9 mg/dL (8.3-10.6); Calcium (Corrected) 9.1 mg/dL (8.5-10.1); Carbon Dioxide 27.8 mMol/L (20.0-31.0); Chloride 98 mMol/L (98-107); Creatinine (Component) 4.7 mg/dL (0.6-1.3); Estimated Creatinine Clearance 14.2 mL/min (>60); Globulin 3.1 gm/dL (2.3-3.5); Glucose 120 mg/dL (74-106); Magnesium 2.1 mg/dL (1.6-2.6); Osmolality,Calculated 286 (275-295); Phosphorous 3.1 mg/dL (2.4-5.1); Potassium 3.3 mMol/L (3.4-5.1); Sodium 141 mMol/L (136-145); Total Protein 6.9 gm/dL (5.7-8.2); eGFR 13 See Note
--- NOTE | 2025-04-14 08:34 | PD.RESPRO ---
Documentation for date of: 04/14/25 Subjective Subjective Interval history: History of present illness: Patient is a 65 years old male with past medical history of coronary artery disease status post stent placement x 2, ESRD on hemodialysis, hypertension, hyperlipidemia type 2 diabetes mellitus, BPH who presented to the ED with complaint of substernal chest pain while receiving dialysis session. Patient stated about 1.5 hours after the dialysis started, patient started having chest pain without any radiation. He received nitroglycerin sublingual at the dialysis center, which provided relief. Patient received nitroglycerin paste and aspirin with EMS. States that he received cardiac catheterization about 20 years ago but has not been keeping up with these follow-ups. At the time of exam, patient appeared short of breath but denied any chest pain, palpitations. He has been having fevers since yesterday along with shortness of breath and cough. Denies abdominal pain, nausea, vomiting, swelling of the limbs. In the ED, patient was hypertensive with blood pressure of 190/76, had temperature of 102.4, respiratory rate 38. He was started on nasal cannula but with worsening shortness of breath and increased work of breathing, he was switched to BiPAP. Lab results show WBC of 19.5 with neutrophilic predominance, hemoglobin 8.8, MCV 72. He had potassium of 3.0, creatinine 3.2, phosphorus 2.0 and troponin 0.219, Wells downtrended to 0.205. BNP at 940 was 1543. Procalcitonin 3.22. Urinalysis was negative for pyuria. Patient underwent echocardiogram, which showed ejection fraction of 50 to 55%, normal left ventricular size and systolic function. Chest x-ray was obtained, shows vascular congestion. Patient was started on IV antibiotics and given IV fluid bolus as well as sepsis protocol. Cardiology was contacted by ED, recommended starting patient on antiplatelet, statin and anticoagulation as per ACS protocol. Past medical history: coronary artery disease status post stent placement x 2, ESRD on hemodialysis, hypertension, hyperlipidemia type 2 diabetes mellitus, BPH Past surgical history: Foot surgery Social history:[id number] smoking history, quit long time ago, denies alcohol abuse, denies illicit drug use Patient admitted for management of ACS, and sepsis, unclear source. Nephrology consulted on 04/13/25 for shortness of breath secondary to fluid overload, requiring urgent HD. 04/13/25: Patient seen and assessed at bedside. Has worsening of breathing today requiring BiPAP, likely secondary to fluid overload from fluid bolus in ED yesterday. Hgb 7.5, will transfuse 1 unit pRBCs with dialysis. Patient HD schedule MW, follows Dr. Cadena. 04/14/25: Patient seen and assessed at bedside. S/p HD -3L +1 unit pRBC yesterday. Off BiPAP, saturating well on NC 4L however continues to endorse shortness of breath. Still has diffuse wheezing on exam. Dialysis with ultrafiltration again today, 3L as tolerated. This will also return patient back to his original HD schedule. Exam Vital Signs Temp Pulse Resp BP Pulse Ox O2 Del Method O2 Flow Rate 98.3 F 91 18 173/64 H 93 L Nasal Cannula 4 04/14/25 08:24 04/14/25 08:30 04/14/25 08:24 04/14/25 08:30 04/14/25 08:24 04/14/25 04:00 04/14/25 08:24 FiO2 4 04/14/25 06:43 Narrative Exam Physical Exam General: Awake and in no acute distress. Conversational and non-toxic appearing. Off BiPAP, on 4L NC saturating low 90s. HEENT: Normocephalic, atraumatic, mucous membranes moist. Heart: Regular rate and rhythm, normal S1 and S2, no murmurs. Lungs: Bibasilar crackles with diffuse wheezing. Abdomen: Soft, nondistended, nontender, positive bowel sounds. No guarding or rebound tenderness. Neurologic: Alert and oriented x3, no gross neurological deficit, and patient able to move all 4 extremities. Extremities: No edema. Skin: No rash or ecchymoses. Objective Labs 04/14/25 04:23 04/14/25 04:23 Labs: Laboratory Results - last 24 hr 04/13/25 04/13/25 04/13/25 05:32 10:30 22:18 WBC RBC Hgb 9.6 L D Hct 28.2 L MCV MCH MCHC RDW Std Deviation Plt Count Neut % (Auto) Lymph % (Auto) [place] % (Auto) Eos % (Auto) Baso % (Auto) Neut # (Auto) Lymph # (Auto) [place] # (Auto) Eos # (Auto) Baso # (Auto) Immature Gran # (Auto) Absolute Nucleated RBC Immature Gran % Nucleated RBC % Sodium Potassium Chloride Carbon Dioxide Anion Gap BUN Creatinine Estim Creat Clear Calc eGFR BUN/Creatinine Ratio Glucose Calculated Osmolality Calcium Corrected Calcium Phosphorus Magnesium Iron 20 L TIBC 149 L Iron Saturation 13 L Unsat Iron Binding 129 L Total Bilirubin AST ALT Alkaline Phosphatase Total Protein Albumin Globulin Albumin/Globulin Ratio Random Vancomycin 13.3 Blood Type B Positive Antibody Screen NEGATIVE Crossmatch See Detail Blood Bank Wristband ID Yes 04/14/25 04:23 WBC 11.3 H RBC 3.43 L Hgb 8.4 L Hct 25.4 L MCV 74 L MCH 24.5 L MCHC 33.1 RDW Std Deviation 42.5 Plt Count 227 Neut % (Auto) 79 Lymph % (Auto) 12 [place] % (Auto) 7 Eos % (Auto) 2 Baso % (Auto) 0 Neut # (Auto) 8.9 H Lymph # (Auto) 1.3 [place] # (Auto) 0.8 Eos # (Auto) 0.2 Baso # (Auto) 0.1 Immature Gran # (Auto) 0.04 H Absolute Nucleated RBC 0.00 Immature Gran % 0 Nucleated RBC % 0 Sodium 141 Potassium 3.3 L Chloride 98 Carbon Dioxide 27.8 Anion Gap 15 BUN 24 H Creatinine 4.7 H* D Estim Creat Clear Calc 14.2 L eGFR 13 L* BUN/Creatinine Ratio 5 L Glucose 120 H Calculated Osmolality 286 Calcium 8.9 Corrected Calcium 9.1 Phosphorus 3.1 Magnesium 2.1 Iron TIBC Iron Saturation Unsat Iron Binding Total Bilirubin 0.4 AST 26 ALT 26 Alkaline Phosphatase 95 D Total Protein 6.9 Albumin 3.8 Globulin 3.1 Albumin/Globulin Ratio 1.2 Random Vancomycin Blood Type Antibody Screen Crossmatch Blood Bank Wristband ID ABG Interpretation ABG results: 04/11/25 14:49 VBG pH 7.45 VBG pCO2 45 VBG pO2 63 H VBG Base Excess 6 H Quality Measures Quality Measures VTE prophylaxis Assessment & Plan Assessment Current Active Medications: Generic Name Dose Route Start Last Admin Trade Name Freq PRN Reason Stop Dose Admin Acetaminophen 650 mg 04/11/25 13:24 Acetaminophen 325 Mg Tablet PO 05/11/25 13:23 Q6H PRN Fever >101.5 Acetylcysteine 3 ml 04/13/25 13:00 04/14/25 06:43 Acetylcysteine Jennifer 20% 4 Ml Nebu INH 05/13/25 12:59 3 ml Q6HRRT LUCRETIA Administration Albuterol/Ipratropium 3 ml 04/11/25 19:00 04/14/25 06:43 Albuterol/Ipratropium (Duoneb) Rt Jennifer 3 Ml Nebu INH 05/11/25 18:59 3 ml Q6HRRT LUCRETIA Administration Amlodipine Besylate 10 mg 04/13/25 09:30 04/13/25 09:26 Amlodipine Besylate 5 Mg Tablet PO 05/13/25 09:29 10 mg QDAY LUCRETIA Administration Aspirin 81 mg 04/12/25 09:00 04/13/25 09:22 Aspirin Ec 81 Mg Tabec PO 05/12/25 08:59 81 mg QDAY LUCRETIA Administration Atorvastatin Calcium 80 mg 04/11/25 21:00 04/13/25 22:35 Atorvastatin Calcium 20 Mg Tablet PO 05/11/25 20:59 80 mg HS LUCRETIA Administration Clonidine 0.1 mg 04/14/25 09:00 Clonidine Hcl 0.1 Mg Tablet PO 05/14/25 08:59 BID LUCRETIA Clopidogrel Bisulfate 75 mg 04/13/25 09:30 04/13/25 09:26 Clopidogrel Bisulfate 75 Mg Tablet PO 05/13/25 09:29 75 mg QDAY LUCRETIA Administration Dextrose 25 ml 04/11/25 13:55 Dextrose 50%-Water Inj 50 Ml Syringe IV 05/11/25 13:54 Q15MIN PRN BG 50-70 responsive npo pt Dextrose 50 ml 04/11/25 13:55 Dextrose 50%-Water Inj 50 Ml Syringe IV 05/11/25 13:54 Q15MIN PRN BG <50 OR BG <70 & pt unresponsive Finasteride 5 mg 04/13/25 09:30 04/13/25 09:26 Finasteride 5 Mg Tablet PO 05/13/25 09:29 5 mg QDAY LUCRETIA Administration Folic Acid 1 mg 04/13/25 09:30 04/13/25 09:26 Folic Acid 1 Mg Tablet PO 05/13/25 09:29 1 mg QDAY LUCRETIA Administration Glucagon 1 mg 04/11/25 13:55 Glucagon Inj 1 Mg Vial IM Q15MIN PRN BG <70, and no IV access Guaifenesin 200 mg 04/13/25 12:00 04/14/25 06:02 Guaifenesin Syrup 200 Mg/10 Ml Udc PO 05/13/25 11:59 Not Given QID [facility] Protocol Guaifenesin/Codeine Phosphate 5 ml 04/12/25 14:32 04/12/25 14:47 Guaifenesin/Cod Syrup 5 Ml Udc PO 05/12/25 14:31 5 ml Q4HR PRN Administration COUGH Protocol Heparin Sodium (Porcine) 5,000 unit 04/12/25 21:00 04/13/25 22:34 Heparin Sod Inj 5000 Unit/Ml Vial SC 04/26/25 20:59 5,000 unit Q12HR LUCRETIA Administration Piperacillin/Tazobactam/Dextrose 3.375 gm in 50 mls @ 12.5 mls/hr 04/11/25 21:00 04/13/25 22:34 Zosyn IV 04/18/25 20:59 12.5 mls/hr Q12HR [facility] Administration Protocol Insulin Human Lispro 0 unit 04/11/25 17:00 04/14/25 07:34 Insulin Lispro (Admelog) 1 Unit/0.01 Ml Unit SC 05/11/25 16:59 Not Given AC [facility] Protocol Labetalol HCl 10 mg 04/11/25 19:23 Labetalol Inj 5 Mg/Ml Vial 4 Ml IVP 05/11/25 19:29 Q8H PRN SBP>160 Metoprolol Succinate 100 mg 04/14/25 09:00 Metoprolol Succinate Xl 25 Mg Tabcr PO 05/14/25 08:59 QDAY [facility] Morphine Sulfate 1 mg 04/11/25 13:24 Morphine Sulf Inj 4 Mg/Ml Vial IVP 04/16/25 13:23 Q4HR PRN PAIN SCALE 7-10 (Severe Nitroglycerin 0.4 mg 04/11/25 09:29 Nitroglycerin 0.4 Mg Subl Btl #25 SL Q5M PRN CHEST PAIN Ondansetron HCl 4 mg 04/11/25 13:24 Ondansetron Inj 2 Mg/Ml Inj 2 Ml IVP 05/11/25 13:23 Q6H PRN NAUSEA OR VOMITING Protocol Tamsulosin HCl 0.4 mg 04/12/25 09:00 04/13/25 09:22 Tamsulosin Hcl 0.4 Mg Capsule PO 05/12/25 08:59 0.4 mg QDAY [facility] Administration Plan Patient is a 64 year old male with PMH of coronary artery disease status post stent placement x 2, ESRD on hemodialysis, hypertension, hyperlipidemia type 2 diabetes mellitus, BPH who was admitted on 04/11/25 for management of ACS, and sepsis, unclear source. Nephrology consulted on 04/13/25 for shortness of breath secondary to fluid overload, requiring urgent HD. #AHRF 2/2 fluid overload #ESRD on HD MWF - Presented on 04/11/25 with chest pain that started about 1.5 hours after the dialysis started. Chest x-ray in ED was obtained, showed vascular congestion. Follows Dr. Cadena. - Creatinine 5.2 on admission -> 7.2 (04/13), baseline 4.6-5.1 in 2022 - S/p IV fluid 1.8L in ED due to concern for sepsis (WBC 19.5 with neutrophilic predominance, BP 190/76, temperature 102.4, respiratory rate 38). Unable to wean off BiPAP until last night. - Off BiPAP today, saturating 93% on 4L NC however, he continues to complain of shortness of breath, improved lung sounds but still has mild bibasilar crackles with wheezing. - S/p HD 04/13 (-3L, +1pRBC) Plan: - HD with ultrafiltration, plan to remove 3L as tolerated as patient continues to appear hypervolemic on exam. 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 Angela. Sheri Richardson DO, PGY-1 Attending Provider Attestation/Addendum Patient seen and examined with resident physician Dr. Richardson. Note reviewed, agree with findings and recommendations. Patient received emergency dialysis last evening and is off BiPAP this morning. Patient currently seen on dialysis. Tolerating dialysis without any problems. Hemodialysis for 3 hours, 2K, ultrafiltration 2-3 L, Epogen 6000, no heparin ordered. Plan of care discussed with the dialysis nurse. Please see dialysis flowsheet for further details.
--- NOTE | 2025-04-14 10:30 | PD.RESDS ---
Planned Discharge Date 04/14/25 DS: Providers Provider Date of admission: 04/11/25 13:23 Primary care physician: Physician No Primary/Family Admitting Provider: Guera Arvizu MD Attending Provider on Admission: Guera Arvizu MD Consults: 04/11/25 09:52 Consult to Cardiology Stat Comment: hx of CAD, hasn't seen cardiology in 20 years Consulting Provider: Leeann Hanks 04/11/25 11:52 Consult to Nephrology Stat Comment: ESRD on HD (MWF) Consulting Provider: Rodri Voss Attending Provider on DC: Pierre Mathias MD Discharging Provider: Pierre Mathias MD Hospital Course Hospital Course Hospital course: History of present illness: Patient is a 65 years old male with past medical history of coronary artery disease status post stent placement x 2, ESRD on hemodialysis, hypertension, hyperlipidemia type 2 diabetes mellitus, BPH who presented to the ED with complaint of substernal chest pain while receiving dialysis session. Patient stated about 1.5 hours after the dialysis started, patient started having chest pain without any radiation. He received nitroglycerin sublingual at the dialysis center, which provided relief. Patient received nitroglycerin paste and aspirin with EMS. States that he received cardiac catheterization about 20 years ago but has not been keeping up with these follow-ups. At the time of exam, patient appeared short of breath but denied any chest pain, palpitations. He has been having fevers since yesterday along with shortness of breath and cough. Denies abdominal pain, nausea, vomiting, swelling of the limbs. In the ED, patient was hypertensive with blood pressure of 190/76, had temperature of 102.4, respiratory rate 38. He was started on nasal cannula but with worsening shortness of breath and increased work of breathing, he was switched to BiPAP. Lab results show WBC of 19.5 with neutrophilic predominance, hemoglobin 8.8, MCV 72. He had potassium of 3.0, creatinine 3.2, phosphorus 2.0 and troponin 0.219, Wells downtrended to 0.205. BNP at 940 was 1543. Procalcitonin 3.22. Urinalysis was negative for pyuria. Patient underwent echocardiogram, which showed ejection fraction of 50 to 55%, normal left ventricular size and systolic function. Chest x-ray was obtained, shows vascular congestion. Patient was started on IV antibiotics and given IV fluid bolus as well as sepsis protocol. Cardiology was contacted by ED, recommended starting patient on antiplatelet, statin and anticoagulation as per ACS protocol. Past medical history: coronary artery disease status post stent placement x 2, ESRD on hemodialysis, hypertension, hyperlipidemia type 2 diabetes mellitus, BPH Past surgical history: Foot surgery Social history:[id number] smoking history, quit long time ago, denies alcohol abuse, denies illicit drug use Patient admitted for management of ACS, and sepsis, unclear source. Nephrology consulted on 04/13/25 for shortness of breath secondary to fluid overload, requiring urgent HD. 04/13/25: Patient seen and assessed at bedside. Has worsening of breathing today requiring BiPAP, likely secondary to fluid overload from fluid bolus in ED yesterday. Hgb 7.5, will transfuse 1 unit pRBCs with dialysis. Patient HD schedule MW, follows Dr. Cadena. 04/14/25: Patient seen and assessed at bedside. S/p HD -3L +1 unit pRBC yesterday. Off BiPAP, saturating well on NC 4L however continues to endorse shortness of breath. Still has diffuse wheezing on exam. Dialysis with ultrafiltration again today, 3L as tolerated. This will also return patient back to his original HD schedule. Time Spent with Patient Time attestation: Total time spent providing and/or coordinating discharge services: Exam Vital Signs Temp Pulse Resp BP Pulse Ox O2 Del Method O2 Flow Rate 97.2 F 84 18 170/90 H 96 Nasal Cannula 4 04/14/25 10:26 04/14/25 10:15 04/14/25 10:26 04/14/25 10:15 04/14/25 10:26 04/14/25 08:00 04/14/25 10:26 FiO2 4 04/14/25 06:43 Discharge Plan Plan Patient Disposition: HOME (Self Care) Patient condition on transfer: Stable Care Plan Goals: Follow up with primary care physician within 1 week of discharge Instructions have been explained to the patient with regards to their medications and how to take them. Patient was able to explain back to physician and nursing staff how to take their medications. Patient expressed understanding with instructions. Continue to take the rest of your medications as prescribed by your primary care physician. Patient has been explained that should any symptoms recur or worsen patient is instructed to return to the Emergency Department. Prescriptions/Referrals Prescriptions/Med Rec: Continued atorvastatin 40 mg Tablet 40 mg PO QPM gemfibrozil 600 mg Tablet 600 mg PO BID ergocalciferol (vitamin D2) [Vitamin D2] 1,250 mcg (50,000 unit) Capsule 1 unit PO QWEEK Rx Instructions: one once a week clopidogrel [Plavix] 75 mg tablet 75 mg PO QDAY tamsulosin 0.4 mg Capsule 0.4 mg PO HS Qty: 30 0RF clonidine HCl 0.1 mg tablet 0.1 mg PO BID Rx Instructions: take one tablet PO in morning, take one tablet PO at bedtime finasteride 5 mg tablet 5 mg PO QDAY amlodipine 10 mg tablet 10 mg PO QDAY aspirin 81 mg Tablet,Chewable 81 mg PO PRN PRN (Reason: chest discomfort) metoprolol succinate 50 mg tablet extended release 24 hr 50 mg PO QDAY Qty: 30 0RF Rx Instructions: take one by mouth 3 times daily for blood pressure folic acid 1 mg tablet 1 mg PO QDAY Patient Comments: TAKE ONE TABLET BY MOUTH EVERY DAY VITAMIN hydrochlorothiazide 12.5 mg Capsule 25 mg PO QDAY Qty: 60 0RF Referrals: No Primary/Family,Physician [Primary Care Provider] Patient/Caregiver Discharge Instructions Print Language: Bulgarian Stand Alone Forms: Echo Award Info., Patient Portal Info Letter
[2025-04-14] MEDS: EPOETIN ALFA-EPBX INJ 10,000 UNIT/ML VIAL (ESRD) 10000 UNIT SC (11:59)
--- NOTE | 2025-04-14 12:32 | ESCONSULT_ITS ---
RE: GRETEL VANCE : 1960 DATE OF CONSULTATION: 04/12/2025 ROOM NUMBER: [id number]. REASON FOR CONSULTATION: Evaluation of slight troponin elevation and atypical chest pain. HISTORY OF PRESENT ILLNESS: The patient is a 64-year-old male with a past medical history of CAD, status post coronary artery stent placement x2 apparently more than 20 years ago, end-stage renal disease on hemodialysis, hypertension, hypercholesterolemia, diabetes mellitus, nephropathy, prostate hypertrophy, came to the hospital with some discomfort in the chest. It appears to be quite atypical in nature, sharp pain in the right side of the chest and middle of the chest and also right upper quadrant region, increases with inspiration with no radiation. There was some relief with nitroglycerin. He apparently had angioplasty more than 20 years ago while he was in [place], but not recently. The EKGs are normal. Echocardiogram is normal. Enzymes are slightly elevated, but no significant delta troponin elevations. Troponin level was 0.21, 2.20, no significant bump in the troponin levels. The pain appears to be noncardiac in nature. Patient has white count elevation 19.5 and procal is 3.22, suggestive of infection. Patient has severe shortness of breath on BiPAP, not saturating well. Echocardiogram shows normal left ventricular function. Chest x-ray showed evidence of possible pulmonary vascular congestion and lab data otherwise unremarkable. Patient still having shortness of breath on BiPAP. Patient also has some volume overload and HFpEF. Blood pressure was high. ALLERGIES: NONE. MEDICATIONS AT HOME: The patient's home medications are reviewed. He is on: 1. Amlodipine 10 mg daily for blood pressure management. 2. Clonidine 0.1 b.i.d. 3. Atorvastatin 40 daily. 4. Clopidogrel 75 daily. 5. Finasteride 5 mg daily. 6. Folic acid daily. 7. Gemfibrozil 600 mg twice daily. 8. HCTZ 25 daily. 9. Metoprolol 50 daily. 10. Tamsulosin 0.4 mg daily. PAST MEDICAL HISTORY: CAD, stent placement, hypertension, chronic kidney disease on hemodialysis. SOCIAL HISTORY: Patient is a nonsmoker. Does not drink alcoholic beverages. FAMILY HISTORY: Noncontributory. PHYSICAL EXAMINATION: Well-nourished male, alert, awake, in no acute distress, thin-built male, still having shortness of breath on BiPAP. Blood pressure 171/62, pulse rate is 81, respirations 12, temperature normal. Neck supple, no JVD. Lungs: Decreased breath sounds, bilateral wheezes and no crackles. Heart: S1, S2 regular. Abdomen: Thin and soft. Extremities: No edema. and rectal: Not performed. Neuro exam unremarkable. Electrocardiogram shows sinus rhythm within normal limits, nonspecific changes. Cardiac echo shows normal left ventricular wall motion, ejection fraction 55 to 60%. Troponin level is 0.2, no significant delta troponin elevation. ASSESSMENT: 1. Acutely decompensated congestive heart failure, HFpEF, ejection fraction 55%, possibly due to volume overload. 2. End-stage renal disease, on hemodialysis. 3. Hypoxic respiratory failure secondary to congestive heart failure. 4. Elevated white count and procal level, SIRS. 5. Mildly elevated troponin level due to chronic kidney disease. 6. Atypical chest pain, appears to be noncardiac chest pain. 7. Status post stent placement. 8. Hypercholesterolemia. RECOMMENDATION: Patient was given heparin, but discontinued. I do not think this patient has acute coronary syndrome. Clinical picture does not suggest acute coronary syndrome. Troponin levels are also not significantly elevated. I do not plan on doing any coronary angiogram. I recommend to continue antibiotic therapy empirically because the procal levels are high as well as the white count is high, most likely some infection, unknown source. Continue on cefepime. Patient will be continued on dialysis for volume overload and continue beta- timbo and antihypertensive management as well. I also agree with the broad-spectrum antibiotic therapy. Patient is getting piperacillin for antibiotic, Zosyn, and also vancomycin. Most likely cause of troponin elevation, type 2 troponin, possibly due to underlying infection rather than coronary artery disease, but we will monitor this closely. DT: 00:07:13 TT: 00:51:00 Ref: [id number] - TID: [id number]
[2025-04-14] MEDS: HEPARIN SOD INJ 5000 UNIT/ML VIAL SC ×2 (13:15→23:43)
[2025-04-14] MEDS: FOLIC ACID 1 MG TABLET PO (13:16)
[2025-04-14] MEDS: METOPROLOL SUCCINATE XL 25 MG TABCR 100 MG PO (13:16)
[2025-04-14] MEDS: TAMSULOSIN HCL 0.4 MG CAPSULE PO (13:17)
[2025-04-14] MEDS: FINASTERIDE 5 MG TABLET PO (13:18)
[2025-04-14] MEDS: CLOPIDOGREL BISULFATE 75 MG TABLET PO (13:18)
[2025-04-14] MEDS: ASPIRIN EC 81 MG TABEC PO (13:18)
[2025-04-14] MEDS: PIPER/TAZO 3.375 GM PREMIX 3.375 GM/50 ML BAG IV ×2 (13:20→23:32)
--- NOTE | 2025-04-14 13:59 | ESPR_ITS ---
<Statement entered by Simon Young MD - 04/24/25 08:25> I reviewed above note and agree with findings and plans. I have also personally examined the patient with medicine team and went over assessment and plan with medical team including nutrition intern and resident physician. <Statement entered by Onel Frances MD - 04/15/25 13:33> Patient was examined and case was reviewed with team including attending physician. Note reviewed, I agree with most of its contents and agree with the patient's care. Onel Frances MD PGY-2 Documentation for date of: 04/14/25 Subjective Subjective Interval history: Mr. Avila is a 64M with past medical history of coronary artery disease status post stent placement x 2, ESRD on hemodialysis M/W/F, hypertension, hyperlipidemia type 2 diabetes mellitus, BPH who presented initially on 04/11/25 with complaint of substernal chest pain while receiving dialysis session. Patient stated he received cardiac catheterization about 20 years ago but has not been keeping up with these follow-ups. He was admitted for NSTEMI. 04/12/25: NAOE. Trop peaked at 0.219. Heparin gtt discontinued. Patient's elevated trop is likely due to ESRD, will continue antiplatelet and statin per cardiology recommendation. WBC decreased to 17 from 19.5 today, Bcx NGTD, continue empiric abx for now. On exam, patient is on BiPAP due to hypoxia on RA per RN. Patient received 1.8L of fluid in the ED per sepsis bolus, will continue to monitor oxygen status, if fluid overloaded, may require dialysis. 04/13/25: NAOE. Patient reports unable to tolerate NC off BiPAP. Orthopenic likely due to fluid overload. Hgb < 8 today, plan to transfuse 1pRBC with dialysis today, nephrology consulted. On exam, patient complains of right lower abdomen/groin pain, consistent with his prior symptoms when he had a pyelonephritis. CT abd scan from 04/10/25 revealed perinephric stranding and urinary bladder wall thickening, consider cystitis and UTI. Bcx NG 48H, Urine Cx negative, however, given his initial elevated WBC and CT findings, the source of his infection is likely kidney/urinary tract. Will continue Zosyn for now and discontinue vanco. 04/14/25: S/p dialysis session yesterday with 1pRBC transfused. Post-transfusion h/h 9.6/28.2. Received dialysis session this morning with plan to remove -3L. Patient still complains of shortness of breathe after dialysis, will continue to monitor, likely discharge tmr with abx. Exam Vital Signs Temp Pulse Resp BP Pulse Ox O2 Del Method O2 Flow Rate 97.2 F 94 22 H 138/52 H 98 Nasal Cannula 3 04/14/25 10:26 04/14/25 13:24 04/14/25 13:24 04/14/25 13:20 04/14/25 13:24 04/14/25 08:00 04/14/25 13:24 FiO2 4 04/14/25 13:24 Narrative Exam General: Awake and in no acute distress. A/O x 3. On BiPAP. HEENT: Normocephalic, atraumatic, mucous membranes moist. Heart: Regular rate and rhythm Lungs: Clear to auscultation with no wheezing or crackles. Abdomen: Soft, nondistended, nontender. No guarding or rebound tenderness. Neurologic: Alert and oriented x3, no gross neurological deficit, and patient able to move all 4 extremities. Extremities:No pitting edema in lower extremities. Skin: Dry/clean/intact. No rash, no ecchymoses. Objective Labs 04/14/25 04:23 04/14/25 04:23 Labs: Laboratory Results - last 24 hr 04/13/25 04/13/25 04/14/25 10:30 22:18 04:23 WBC 11.3 H RBC 3.43 L Hgb 9.6 L D 8.4 L Hct 28.2 L 25.4 L MCV 74 L MCH 24.5 L MCHC 33.1 RDW Std Deviation 42.5 Plt Count 227 Neut % (Auto) 79 Lymph % (Auto) 12 [place] % (Auto) 7 Eos % (Auto) 2 Baso % (Auto) 0 Neut # (Auto) 8.9 H Lymph # (Auto) 1.3 [place] # (Auto) 0.8 Eos # (Auto) 0.2 Baso # (Auto) 0.1 Immature Gran # (Auto) 0.04 H Absolute Nucleated RBC 0.00 Immature Gran % 0 Nucleated RBC % 0 Sodium 141 Potassium 3.3 L Chloride 98 Carbon Dioxide 27.8 Anion Gap 15 BUN 24 H Creatinine 4.7 H* D Estim Creat Clear Calc 14.2 L eGFR 13 L* BUN/Creatinine Ratio 5 L Glucose 120 H Calculated Osmolality 286 Calcium 8.9 Corrected Calcium 9.1 Phosphorus 3.1 Magnesium 2.1 Total Bilirubin 0.4 AST 26 ALT 26 Alkaline Phosphatase 95 D Total Protein 6.9 Albumin 3.8 Globulin 3.1 Albumin/Globulin Ratio 1.2 Blood Type B Positive Antibody Screen NEGATIVE Crossmatch See Detail Blood Bank Wristband ID Yes ABG Interpretation ABG results: 04/11/25 14:49 VBG pH 7.45 VBG pCO2 45 VBG pO2 63 H VBG Base Excess 6 H Quality Measures Quality Measures VTE prophylaxis Assessment & Plan Assessment Current Active Medications: Generic Name Dose Route Start Last Admin Trade Name Freq PRN Reason Stop Dose Admin Acetaminophen 650 mg 04/11/25 13:24 Acetaminophen 325 Mg Tablet PO 05/11/25 13:23 Q6H PRN Fever >101.5 Acetylcysteine 3 ml 04/13/25 13:00 04/14/25 13:24 Acetylcysteine Jennifer 20% 4 Ml Nebu INH 05/13/25 12:59 3 ml Q6HRRT [facility]CRETIA Administration Albuterol/Ipratropium 3 ml 04/11/25 19:00 04/14/25 13:24 Albuterol/Ipratropium (Duoneb) Rt Jennifer 3 Ml Nebu INH 05/11/25 18:59 3 ml Q6HRRT [facility]CRETIA Administration Amlodipine Besylate 10 mg 04/13/25 09:30 04/14/25 13:20 Amlodipine Besylate 5 Mg Tablet PO 05/13/25 09:29 10 mg QDAY [facility]IA Administration Aspirin 81 mg 04/12/25 09:00 04/14/25 13:18 Aspirin Ec 81 Mg Tabec PO 05/12/25 08:59 81 mg QDAY [facility]CRETIA Administration Atorvastatin Calcium 80 mg 04/11/25 21:00 04/13/25 22:35 Atorvastatin Calcium 20 Mg Tablet PO 05/11/25 20:59 80 mg HS [facility]CRETIA Administration Clonidine 0.1 mg 04/14/25 09:00 04/14/25 13:19 Clonidine Hcl 0.1 Mg Tablet PO 05/14/25 08:59 Not Given BID [facility]IA Clopidogrel Bisulfate 75 mg 04/13/25 09:30 04/14/25 13:18 Clopidogrel Bisulfate 75 Mg Tablet PO 05/13/25 09:29 75 mg QDAY [facility] Administration Dextrose 25 ml 04/11/25 13:55 Dextrose 50%-Water Inj 50 Ml Syringe IV 05/11/25 13:54 Q15MIN PRN BG 50-70 responsive npo pt Dextrose 50 ml 04/11/25 13:55 Dextrose 50%-Water Inj 50 Ml Syringe IV 05/11/25 13:54 Q15MIN PRN BG <50 OR BG <70 & pt unresponsive Finasteride 5 mg 04/13/25 09:30 04/14/25 13:18 Finasteride 5 Mg Tablet PO 05/13/25 09:29 5 mg QDAY [facility] Administration Folic Acid 1 mg 04/13/25 09:30 04/14/25 13:16 Folic Acid 1 Mg Tablet PO 05/13/25 09:29 1 mg QDAY [facility] Administration Glucagon 1 mg 04/11/25 13:55 Glucagon Inj 1 Mg Vial IM Q15MIN PRN BG <70, and no IV access Guaifenesin 200 mg 04/13/25 12:00 04/14/25 13:33 Guaifenesin Syrup 200 Mg/10 Ml Udc PO 05/13/25 11:59 Not Given QID [facility] Protocol Guaifenesin/Codeine Phosphate 5 ml 04/12/25 14:32 04/12/25 14:47 Guaifenesin/Cod Syrup 5 Ml Udc PO 05/12/25 14:31 5 ml Q4HR PRN Administration COUGH Protocol Heparin Sodium (Porcine) 5,000 unit 04/12/25 21:00 04/14/25 13:15 Heparin Sod Inj 5000 Unit/Ml Vial SC 04/26/25 20:59 5,000 unit Q12HR [facility] Administration Piperacillin/Tazobactam/Dextrose 3.375 gm in 50 mls @ 12.5 mls/hr 04/11/25 21:00 04/14/25 13:20 Zosyn IV 04/18/25 20:59 12.5 mls/hr Q12HR [facility] Administration Protocol Insulin Human Lispro 0 unit 04/11/25 17:00 04/14/25 07:34 Insulin Lispro (Admelog) 1 Unit/0.01 Ml Unit SC 05/11/25 16:59 Not Given AC [facility] Protocol Labetalol HCl 10 mg 04/11/25 19:23 Labetalol Inj 5 Mg/Ml Vial 4 Ml IVP 05/11/25 19:29 Q8H PRN SBP>160 Metoprolol Succinate 100 mg 04/14/25 09:00 04/14/25 13:16 Metoprolol Succinate Xl 25 Mg Tabcr PO 05/14/25 08:59 100 mg QDAY [facility] Administration Morphine Sulfate 1 mg 04/11/25 13:24 Morphine Sulf Inj 4 Mg/Ml Vial IVP 04/16/25 13:23 Q4HR PRN PAIN SCALE 7-10 (Severe Nitroglycerin 0.4 mg 04/11/25 09:29 Nitroglycerin 0.4 Mg Subl Btl #25 SL Q5M PRN CHEST PAIN Ondansetron HCl 4 mg 04/11/25 13:24 Ondansetron Inj 2 Mg/Ml Inj 2 Ml IVP 05/11/25 13:23 Q6H PRN NAUSEA OR VOMITING Protocol Tamsulosin HCl 0.4 mg 04/12/25 09:00 04/14/25 13:17 Tamsulosin Hcl 0.4 Mg Capsule PO 05/12/25 08:59 0.4 mg QDAY [facility] Administration Plan Patient is a 64 years old male with past medical history of coronary artery disease status post stents, hypertension, hyperlipidemia, diabetes mellitus, BPH, ESRD on hemodialysis M/W/F who presented with chest pain during hemodialysis session. Was found to be febrile, had elevation troponin. Will admit the patient for management of ACS, and sepsis, source is likely kidney/urinary tract. #ACS #NSTEMI type I versus 2 #History of coronary artery disease status post stents Patient presented with chest pain during hemodialysis session, improved with nitroglycerin Has a history of CAD but has not been following with cardiology EKG shows inconsistent mild changes, no ST elevation Initial Troponin at 0.129 Cardiology contacted by ED, recommended to restart the patient on aspirin, statin and heparin drip, appreciate recommendations. Patient underwent echocardiogram, shows normal left ventricular size and function, ejection fraction of 50 to 55%. - Heparin gtt discontinued 04/12/25, continue statin and antiplatlet per cardiology recs. --> ASA 81mg QD, Atorvastatin 80mg QD - Nitroglycerin as needed and morphine as needed for pain - oxygen as needed. #Sepsis #Possible community-acquired pneumonia #Possible UTI/pyelonephritis/cystitis Source not fully clear, chest x-ray has bilateral infiltrates Patient had fever, tachypnea, leukocytosis, Elevated troponin, elevated procalcitonin Patient received aggressive IV hydration in the ED Patient reports RLQ/groin, similar to his prior pyelonephitis. CT scan on 04/10/25 revealed perinephric stranding and bladde wall thickening, concerning for cystitis or pyelonephritis despite negative UA. - Continue Zosyn (04/11 ~ 04/18), vanco discontinued 04/13/25. - Blood cultures NGTD. - Urine cultures negative #Acute hypoxic respiratory failure #Concern for HFpEF exacerbation Patient started having increased work of breathing and shortness of breath after IV fluid resuscitation BNP was elevated at 1543 - Continue BiPAP as needed, - D/C lasix given patient is ESRD on dialysis, oliguric - Strict ins and out, fluid restriction, daily weight #ESRD on hemodialysis #Anemia of chronic disease Only received partial hemodialysis today - Nephrology consulted, appreciate recommendations - daily labs, monitor chemistry - renal dose med, avoid nephrotoxin - no recent contrast or offending mediations - Transfuse if < 8. - Dialysis sessions (04/13, -3L, +1pRBC) (04/14 with plan to remove 3L) #Hypertensive urgency/emergency Patient had blood pressure of 190/76 on presentation Received metoprolol 25 in the ED Blood pressure improved to 149/86 this evening Ordered labetalol as needed - Continue home metoprolol 50mg QD #Type II diabetes mellitus Started on insulin sliding scale A1c 7.2 - Frequent glucose checks, hypoglycemia protocol in place - ISS #BPH - chronic medical problem - continue home tamsulosin Health maintenance Dispo: Telemetry for ACS, acute hypoxic respiratory failure DVT prophylaxis: Heparin SC GI prophylaxis: N/A Antibiotics: Zosyn Bowel Regimen: N/A Diet: Renal Diet Lines: Peripheral IV Code status: Full code Case discussed with my senior resident Dr. Corona Case discussed with my attending Dr. Hector Mathias, DO PGY 1 Attending Provider Attestation/Addendum I have seen and examined the patient. I was physically present for the dao portions of the services provided including history, physical exam, diagnosis, treatment plans and orders. I agree with assessment and plan of care as documented by residents. Patient seen and examined at bedside this morning. Continues to complain of shortness of breath. Attempt was made in the morning to switch him to nasal cannula but patient had increased shortness of breath and increased work of breathing and was resumed back on BiPAP. Continues to be on IV Zosyn. Blood cultures are negative for 48 hours, we will discontinue vancomycin. Hemoglobin level dropped to 7.5 this morning, patient has history of CAD, we will transfuse him with 1 unit of PRBC today. WBC count is improving. With drop in hemoglobin, we will also obtain iron studies. With concern for volume discussed with nephrology, agreed on hemodialysis session today with removal of fluid, appreciate recommendations. Even though this this note was carefully revised there may still be minor errors in sheet metal engineer due to voice recognition software. Guera Arvizu MD
--- NOTE | 2025-04-14 15:10 | PC.SS ---
Rounding: One more day of monitoring, DC plan home may need O2
--- NOTE | 2025-04-14 19:58 | ESPR_ITS ---
<Statement entered by Leeann Hanks MD - 04/19/25 18:02> I personally examined the patient evaluate the patient with resident physician PGY [address] Dr[address] Mcallister patient has multiple medical problems dialysis patient end- stage renal disease previous CAD now has had some atypical chest pain shortness of breath mild troponin elevation possibly type II troponin clinically stable clinical picture does not suggest myocardial infarction NSTEMI treating as type II myocardial infarction not due to coronary occlusion possible demand. Will continue to monitor the patient for any change in status. Agree with treatment plan recommendation as documented by resident physician will continue to follow the patient Documentation for date of: 04/14/25 Subjective Subjective Interval history: Patient examined at bedside, has no major complaints. No chest pain or shortness of breath. Appears to be comfortable on nasal cannula. Vitals are stable. Sodium 144, potassium 3.3. Continue metoprolol succinate 100 mg daily, Plavix 75 mg, atorvastatin 80, amlodipine 10 for blood pressure control. Exam Vital Signs Temp Pulse Resp BP Pulse Ox O2 Del Method O2 Flow Rate 97.8 F 85 19 143/70 H 98 Nasal Cannula 3 04/14/25 16:00 04/14/25 19:06 04/14/25 19:06 04/14/25 16:00 04/14/25 19:06 04/14/25 16:00 04/14/25 19:06 FiO2 3 04/14/25 19:06 Narrative Exam General: Awake and in no acute distress. A/O x 3. On NC HEENT: Normocephalic, atraumatic, mucous membranes moist. Heart: Regular rate and rhythm Lungs: Clear to auscultation with no wheezing or crackles. Abdomen: Soft, nondistended, nontender. No guarding or rebound tenderness. Neurologic: Alert and oriented x3, no gross neurological deficit, and patient able to move all 4 extremities. Extremities:No pitting edema in lower extremities. Skin: Dry/clean/intact. No rash, no ecchymoses. Objective Labs 04/14/25 04:23 04/14/25 04:23 Labs: Laboratory Results - last 24 hr 04/13/25 04/14/25 22:18 04:23 WBC 11.3 H RBC 3.43 L Hgb 9.6 L D 8.4 L Hct 28.2 L 25.4 L MCV 74 L MCH 24.5 L MCHC 33.1 RDW Std Deviation 42.5 Plt Count 227 Neut % (Auto) 79 Lymph % (Auto) 12 [place] % (Auto) 7 Eos % (Auto) 2 Baso % (Auto) 0 Neut # (Auto) 8.9 H Lymph # (Auto) 1.3 [place] # (Auto) 0.8 Eos # (Auto) 0.2 Baso # (Auto) 0.1 Immature Gran # (Auto) 0.04 H Absolute Nucleated RBC 0.00 Immature Gran % 0 Nucleated RBC % 0 Sodium 141 Potassium 3.3 L Chloride 98 Carbon Dioxide 27.8 Anion Gap 15 BUN 24 H Creatinine 4.7 H* D Estim Creat Clear Calc 14.2 L eGFR 13 L* BUN/Creatinine Ratio 5 L Glucose 120 H Calculated Osmolality 286 Calcium 8.9 Corrected Calcium 9.1 Phosphorus 3.1 Magnesium 2.1 Total Bilirubin 0.4 AST 26 ALT 26 Alkaline Phosphatase 95 D Total Protein 6.9 Albumin 3.8 Globulin 3.1 Albumin/Globulin Ratio 1.2 ABG Interpretation ABG results: 04/11/25 14:49 VBG pH 7.45 VBG pCO2 45 VBG pO2 63 H VBG Base Excess 6 H Quality Measures Quality Measures VTE prophylaxis Assessment & Plan Assessment Current Active Medications: Generic Name Dose Route Start Last Admin Trade Name Freq PRN Reason Stop Dose Admin Acetaminophen 650 mg 04/11/25 13:24 Acetaminophen 325 Mg Tablet PO 05/11/25 13:23 Q6H PRN Fever >101.5 Acetylcysteine 3 ml 04/13/25 13:00 04/14/25 19:06 Acetylcysteine Jennifer 20% 4 Ml Nebu INH 05/13/25 12:59 3 ml Q6HRRT LUCRETIA Administration Albuterol/Ipratropium 3 ml 04/11/25 19:00 04/14/25 19:06 Albuterol/Ipratropium (Duoneb) Rt Jennifer 3 Ml Nebu INH 05/11/25 18:59 3 ml Q6HRRT LUCRETIA Administration Amlodipine Besylate 10 mg 04/13/25 09:30 04/14/25 13:20 Amlodipine Besylate 5 Mg Tablet PO 05/13/25 09:29 10 mg QDAY [facility]CRETIA Administration Aspirin 81 mg 04/12/25 09:00 04/14/25 13:18 Aspirin Ec 81 Mg Tabec PO 05/12/25 08:59 81 mg QDAY [facility]CRETIA Administration Atorvastatin Calcium 80 mg 04/11/25 21:00 04/13/25 22:35 Atorvastatin Calcium 20 Mg Tablet PO 05/11/25 20:59 80 mg HS LUCRETIA Administration Clonidine 0.1 mg 04/14/25 09:00 04/14/25 13:19 Clonidine Hcl 0.1 Mg Tablet PO 05/14/25 08:59 Not Given BID LUCRETIA Clopidogrel Bisulfate 75 mg 04/13/25 09:30 04/14/25 13:18 Clopidogrel Bisulfate 75 Mg Tablet PO 05/13/25 09:29 75 mg QDAY [facility]CRETIA Administration Dextrose 25 ml 04/11/25 13:55 Dextrose 50%-Water Inj 50 Ml Syringe IV 05/11/25 13:54 Q15MIN PRN BG 50-70 responsive npo pt Dextrose 50 ml 04/11/25 13:55 Dextrose 50%-Water Inj 50 Ml Syringe IV 05/11/25 13:54 Q15MIN PRN BG <50 OR BG <70 & pt unresponsive Finasteride 5 mg 04/13/25 09:30 04/14/25 13:18 Finasteride 5 Mg Tablet PO 05/13/25 09:29 5 mg QDAY [facility]CRETIA Administration Folic Acid 1 mg 04/13/25 09:30 04/14/25 13:16 Folic Acid 1 Mg Tablet PO 05/13/25 09:29 1 mg QDAY [facility]CRETIA Administration Glucagon 1 mg 04/11/25 13:55 Glucagon Inj 1 Mg Vial IM Q15MIN PRN BG <70, and no IV access Guaifenesin 200 mg 04/13/25 12:00 04/14/25 18:35 Guaifenesin Syrup 200 Mg/10 Ml Udc PO 05/13/25 11:59 Not Given QID [facility]CRETIA Protocol Guaifenesin/Codeine Phosphate 5 ml 04/12/25 14:32 04/12/25 14:47 Guaifenesin/Cod Syrup 5 Ml Udc PO 05/12/25 14:31 5 ml Q4HR PRN Administration COUGH Protocol Heparin Sodium (Porcine) 5,000 unit 04/12/25 21:00 04/14/25 13:15 Heparin Sod Inj 5000 Unit/Ml Vial SC 04/26/25 20:59 5,000 unit Q12HR [facility]CRETIA Administration Piperacillin/Tazobactam/Dextrose 3.375 gm in 50 mls @ 12.5 mls/hr 04/11/25 21:00 04/14/25 13:20 Zosyn IV 04/18/25 20:59 12.5 mls/hr Q12HR [facility] Administration Protocol Insulin Human Lispro 0 unit 04/11/25 17:00 04/14/25 18:35 Insulin Lispro (Admelog) 1 Unit/0.01 Ml Unit SC 05/11/25 16:59 Not Given AC [facility] Protocol Labetalol HCl 10 mg 04/11/25 19:23 Labetalol Inj 5 Mg/Ml Vial 4 Ml IVP 05/11/25 19:29 Q8H PRN SBP>160 Metoprolol Succinate 100 mg 04/14/25 09:00 04/14/25 13:16 Metoprolol Succinate Xl 25 Mg Tabcr PO 05/14/25 08:59 100 mg QDAY [facility]CRETIA Administration Morphine Sulfate 1 mg 04/11/25 13:24 Morphine Sulf Inj 4 Mg/Ml Vial IVP 04/16/25 13:23 Q4HR PRN PAIN SCALE 7-10 (Severe Nitroglycerin 0.4 mg 04/11/25 09:29 Nitroglycerin 0.4 Mg Subl Btl #25 SL Q5M PRN CHEST PAIN Ondansetron HCl 4 mg 04/11/25 13:24 Ondansetron Inj 2 Mg/Ml Inj 2 Ml IVP 05/11/25 13:23 Q6H PRN NAUSEA OR VOMITING Protocol Tamsulosin HCl 0.4 mg 04/12/25 09:00 04/14/25 13:17 Tamsulosin Hcl 0.4 Mg Capsule PO 05/12/25 08:59 0.4 mg QDAY [facility] Administration Plan Patient is a 64 years old male with past medical history of coronary artery disease status post stents, hypertension, hyperlipidemia, diabetes mellitus, BPH, ESRD on hemodialysis M/W/F who presented with chest pain during hemodialysis session. Was found to be febrile, had elevation troponin. Cardiology consulted for elevated troponins. #NSTEMI II, demand ischemia #History of coronary artery disease status post stents Patient presented with chest pain during hemodialysis session, improved with nitroglycerin Has a history of CAD but has not been following with cardiology EKG shows inconsistent mild changes, no ST elevation Initial Troponin at 0.129 Patient underwent echocardiogram, shows normal left ventricular size and function, ejection fraction of 50 to 55%. - Heparin gtt discontinued 04/12/25, continue statin and antiplatlet --> ASA 81mg QD, Atorvastatin 80mg QD - Nitroglycerin as needed and morphine as needed for pain - oxygen as needed. #Sepsis #Possible community-acquired pneumonia #Acute hypoxic respiratory failure #ESRD on hemodialysis #Hypertensive urgency/emergency #Type II diabetes mellitus #BPH Primary care team to manage above conditions and ongoing care needs. The patient's management plan was discussed with my attending physician Dr. Hanks. Stephanie Sam, PGY-2
[2025-04-14] MEDS: ATORVASTATIN CALCIUM 20 MG TABLET 80 MG PO (23:31)
[2025-04-14] MEDS: guaiFENesin SYRUP 200 MG/10 ML UDC PO (23:32)
[2025-04-15] VITALS (13 sets, daily range): BP systolic 126–164; BP diastolic 61–76; PULSE 79–95; RESP 16–25; TEMP 36.3–36.9; O2SAT 92–100; BMI 20.9
[2025-04-15] MEDS: ACETYLCYSTEINE SOL 20% 4 ML NEBU 3 ML INH ×3 (00:25→13:43)
[2025-04-15] MEDS: ALBUTEROL/IPRATROPIUM (Duoneb) RT SOL 3 ML NEBU INH ×3 (00:25→13:43)
[2025-04-15 05:56] LABS: Basophils # (Auto) 0.1 Thou/mm3 (0.0-0.2); Basophils % (Auto) 1 % (0-2.5); Eosinophils # (Auto) 0.4 Thou/mm3 (0.0-0.5); Eosinophils % (Auto) 4 % (0-10); Hematocrit 30.1 % (41.0-53.0); Hemoglobin 10.2 g/dL (13.5-16.0); Immature Granulocytes Auto 0.06 Thou/mm3 (0.00-0.00); Lymphocytes # (Auto) 2.3 Thou/mm3 (1.0-4.8); Lymphocytes % (Auto) 21 % (10-50); Mean Corpuscular HGB Conc 33.9 g/dl (31.0-37.0); Mean Corpuscular Hemoglobin 25.2 pg (25.0-35.0); Mean Corpuscular Volume 74 fL (80-100); Monocytes # (Auto) 1.1 Thou/mm3 (0.0-0.8); Monocytes % (Auto) 10 % (0-12); Neutrophils # (Auto) 7.0 Thou/mm3 (1.8-7.7); Neutrophils % (Auto) 64 % (37-80); Nucleated Red Blood Cell # 0.00 Thou/mm3 (0.00-0.00); Nucleated Red Blood Cell % 0 /100 WBC (0); Platelet Count 298 Thou/mm3 (140-440); RDW Standard Deviation 43.1 fL (35.1-43.9); Red Blood Count 4.05 Miln/mm3 (4.50-5.90); White Blood Count 11.0 Thou/mm3 (3.8-10.6)
[2025-04-15] MEDS: guaiFENesin SYRUP 200 MG/10 ML UDC PO ×2 (06:11→12:11)
--- NOTE | 2025-04-15 06:26 | PC.NURSE ---
99% O2 sat on 2L/min/nc- Decreased to 1L/min/nc.
[2025-04-15 06:29] LABS: Alanine Aminotransferase 28 U/L (10-49); Albumin, Serum 4.2 gm/dL (3.4-4.8); Albumin/Globulin Ratio 1.2 (1.2-2.2); Alkaline Phosphatase 105 U/L (46-116); Anion Gap 13 (7-16); Aspartate Amino Transferase 25 U/L (0-34); BUN/Creatinine Ratio 5 Ratio (12-20); Bilirubin,Total 0.4 mg/dL (0.3-1.2); Blood Urea Nitrogen 27 mg/dL (9-23); Calcium 9.4 mg/dL (8.3-10.6); Calcium (Corrected) 9.4 mg/dL (8.5-10.1); Carbon Dioxide 28.3 mMol/L (20.0-31.0); Chloride 100 mMol/L (98-107); Creatinine (Component) 5.3 mg/dL (0.6-1.3); Estimated Creatinine Clearance 12.6 mL/min (>60); Globulin 3.4 gm/dL (2.3-3.5); Glucose 173 mg/dL (74-106); Magnesium 2.0 mg/dL (1.6-2.6); Osmolality,Calculated 290 (275-295); Phosphorous 3.6 mg/dL (2.4-5.1); Potassium 3.2 mMol/L (3.4-5.1); Sodium 141 mMol/L (136-145); Total Protein 7.6 gm/dL (5.7-8.2); eGFR 12 See Note
--- NOTE | 2025-04-15 08:21 | XR_ITS ---
Examination: CT chest, without intravenous contrast. Sagittal and coronal 2-D reconstructions. Exam date and time: April 15, 2025, 1002 hours, comparison February 22, 2023 INDICATIONS: Shortness of breath this morning CTDI:vol (mGy) 7.82 DLP: (mGycm) 274 Technique: Multiple 3.0 mm axial sections of the chest to been obtained. Bone and lung density settings are obtained. Sagittal and coronal 2-D reconstructions have been obtained. Low dose protocols were performed. One or more of the following dose reduction techniques were used; automated exposure control, adjustment of the mA and/or KV according to patient size, use of iterative reconstruction technique. Findings: Thoracic aortic calcification no aneurysmal dilatation Pulmonary artery segments are not enlarged Significant calcification left main and left anterior descending right coronary arteries Mild enlargement cardiac contour Biliary nodular pattern throughout the lungs, in addition mild septal edema No visualized liver or splenic lesion No pancreatic mass Kidneys partially visualized no hydronephrosis Moderate thoracic degenerative disc disease IMPRESSION: Mild heart failure Miliary nodular pattern throughout the lungs most consistent with pneumonia, differential would include tuberculosis
--- NOTE | 2025-04-15 08:41 | ESPR_ITS ---
Documentation for date of: 04/15/25 Subjective Subjective Interval history: History of present illness: Patient is a 65 years old male with past medical history of coronary artery disease status post stent placement x 2, ESRD on hemodialysis, hypertension, hyperlipidemia type 2 diabetes mellitus, BPH who presented to the ED with complaint of substernal chest pain while receiving dialysis session. Patient stated about 1.5 hours after the dialysis started, patient started having chest pain without any radiation. He received nitroglycerin sublingual at the dialysis center, which provided relief. Patient received nitroglycerin paste and aspirin with EMS. States that he received cardiac catheterization about 20 years ago but has not been keeping up with these follow-ups. At the time of exam, patient appeared short of breath but denied any chest pain, palpitations. He has been having fevers since yesterday along with shortness of breath and cough. Denies abdominal pain, nausea, vomiting, swelling of the limbs. In the ED, patient was hypertensive with blood pressure of 190/76, had temperature of 102.4, respiratory rate 38. He was started on nasal cannula but with worsening shortness of breath and increased work of breathing, he was switched to BiPAP. Lab results show WBC of 19.5 with neutrophilic predominance, hemoglobin 8.8, MCV 72. He had potassium of 3.0, creatinine 3.2, phosphorus 2.0 and troponin 0.219, Wells downtrended to 0.205. BNP at 940 was 1543. Procalcitonin 3.22. Urinalysis was negative for pyuria. Patient underwent echocardiogram, which showed ejection fraction of 50 to 55%, normal left ventricular size and systolic function. Chest x-ray was obtained, shows vascular congestion. Patient was started on IV antibiotics and given IV fluid bolus as well as sepsis protocol. Cardiology was contacted by ED, recommended starting patient on antiplatelet, statin and anticoagulation as per ACS protocol. Past medical history: coronary artery disease status post stent placement x 2, ESRD on hemodialysis, hypertension, hyperlipidemia type 2 diabetes mellitus, BPH Past surgical history: Foot surgery Social history:[id number] smoking history, quit long time ago, denies alcohol abuse, denies illicit drug use Patient admitted for management of ACS, and sepsis, unclear source. Nephrology consulted on 04/13/25 for shortness of breath secondary to fluid overload, requiring urgent HD. 04/13/25: Patient seen and assessed at bedside. Has worsening of breathing today requiring BiPAP, likely secondary to fluid overload from fluid bolus in ED yesterday. Hgb 7.5, will transfuse 1 unit pRBCs with dialysis. Patient HD schedule MWF, follows Dr. Cadena. 04/14/25: Patient seen and assessed at bedside. S/p HD -3L +1 unit pRBC yesterday. Off BiPAP, saturating well on NC 4L however continues to endorse shortness of breath. Still has diffuse wheezing on exam. Dialysis with ultrafiltration again today, 3L as tolerated. This will also return patient back to his original HD schedule. 04/15/25: Patient seen and assessed at bedside. S/p HD -3L yesterday. Saturating well on room air, will monitor O2 saturation during ambulation. Consider CT chest to evaluate for pulmonary fibrosis given lung exam. No need for dialysis today as oxygen requirements decreased. Plan for HD tomorrow if patient is still admitted. 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 Exam Vital Signs Temp Pulse Resp BP Pulse Ox O2 Del Method O2 Flow Rate 97.4 F 80 25 H 126/61 100 Room Air 1 04/15/25 04:00 04/15/25 06:35 04/15/25 06:35 04/15/25 06:11 04/15/25 06:35 04/15/25 04:00 04/15/25 06:35 FiO2 1 04/15/25 06:35 Narrative Exam Physical Exam General: Awake and in no acute distress. Conversational and non-toxic appearing. Off BiPAP, saturating low 90s on room air. HEENT: Normocephalic, atraumatic, mucous membranes moist. Heart: Regular rate and rhythm, normal S1 and S2, no murmurs. Lungs: Bibasilar crackles with diffuse wheezing and rhonchi. Abdomen: Soft, nondistended, nontender, positive bowel sounds. No guarding or rebound tenderness. Neurologic: Alert and oriented x3, no gross neurological deficit, and patient able to move all 4 extremities. Extremities: No edema. Skin: No rash or ecchymoses. Objective Labs 04/15/25 04:48 04/15/25 04:48 Labs: Laboratory Results - last 24 hr 04/15/25 04:48 WBC 11.0 H RBC 4.05 L Hgb 10.2 L D Hct 30.1 L MCV 74 L MCH 25.2 MCHC 33.9 RDW Std Deviation 43.1 Plt Count 298 D Neut % (Auto) 64 Lymph % (Auto) 21 Dade % (Auto) 10 Eos % (Auto) 4 Baso % (Auto) 1 Neut # (Auto) 7.0 Lymph # (Auto) 2.3 Dade # (Auto) 1.1 H Eos # (Auto) 0.4 Baso # (Auto) 0.1 Immature Gran # (Auto) 0.06 H Absolute Nucleated RBC 0.00 Immature Gran % 1 H Nucleated RBC % 0 Sodium 141 Potassium 3.2 L Chloride 100 Carbon Dioxide 28.3 Anion Gap 13 BUN 27 H Creatinine 5.3 H* D Estim Creat Clear Calc 12.6 L eGFR 12 L* BUN/Creatinine Ratio 5 L Glucose 173 H D Calculated Osmolality 290 Calcium 9.4 Corrected Calcium 9.4 Phosphorus 3.6 Magnesium 2.0 Total Bilirubin 0.4 AST 25 ALT 28 Alkaline Phosphatase 105 Total Protein 7.6 Albumin 4.2 Globulin 3.4 Albumin/Globulin Ratio 1.2 ABG Interpretation ABG results: 04/11/25 14:49 VBG pH 7.45 VBG pCO2 45 VBG pO2 63 H VBG Base Excess 6 H Quality Measures Quality Measures VTE prophylaxis Assessment & Plan Assessment Current Active Medications: Generic Name Dose Route Start Last Admin Trade Name Freq PRN Reason Stop Dose Admin Acetaminophen 650 mg 04/11/25 13:24 Acetaminophen 325 Mg Tablet PO 05/11/25 13:23 Q6H PRN Fever >101.5 Acetylcysteine 3 ml 04/13/25 13:00 04/15/25 06:35 Acetylcysteine Jennifer 20% 4 Ml Nebu INH 05/13/25 12:59 3 ml Q6HRRT LUCRETIA Administration Albuterol/Ipratropium 3 ml 04/11/25 19:00 04/15/25 06:35 Albuterol/Ipratropium (Duoneb) Rt Jennifer 3 Ml Nebu INH 05/11/25 18:59 3 ml Q6HRRT LUCRETIA Administration Amlodipine Besylate 10 mg 04/13/25 09:30 04/14/25 13:20 Amlodipine Besylate 5 Mg Tablet PO 05/13/25 09:29 10 mg QDAY LUCRETIA Administration Aspirin 81 mg 04/12/25 09:00 04/14/25 13:18 Aspirin Ec 81 Mg Tabec PO 05/12/25 08:59 81 mg QDAY LUCRETIA Administration Atorvastatin Calcium 80 mg 04/11/25 21:00 04/14/25 23:31 Atorvastatin Calcium 20 Mg Tablet PO 05/11/25 20:59 80 mg HS LUCRETIA Administration Clonidine 0.1 mg 04/14/25 09:00 04/14/25 23:34 Clonidine Hcl 0.1 Mg Tablet PO 05/14/25 08:59 0.1 mg BID LUCRETIA Administration Clopidogrel Bisulfate 75 mg 04/13/25 09:30 04/14/25 13:18 Clopidogrel Bisulfate 75 Mg Tablet PO 05/13/25 09:29 75 mg QDAY LUCRETIA Administration Dextrose 25 ml 04/11/25 13:55 Dextrose 50%-Water Inj 50 Ml Syringe IV 05/11/25 13:54 Q15MIN PRN BG 50-70 responsive npo pt Dextrose 50 ml 04/11/25 13:55 Dextrose 50%-Water Inj 50 Ml Syringe IV 05/11/25 13:54 Q15MIN PRN BG <50 OR BG <70 & pt unresponsive Finasteride 5 mg 04/13/25 09:30 04/14/25 13:18 Finasteride 5 Mg Tablet PO 05/13/25 09:29 5 mg QDAY LUCRETIA Administration Folic Acid 1 mg 04/13/25 09:30 04/14/25 13:16 Folic Acid 1 Mg Tablet PO 05/13/25 09:29 1 mg QDAY LUCRETIA Administration Glucagon 1 mg 04/11/25 13:55 Glucagon Inj 1 Mg Vial IM Q15MIN PRN BG <70, and no IV access Guaifenesin 200 mg 04/13/25 12:00 04/15/25 06:11 Guaifenesin Syrup 200 Mg/10 Ml Udc PO 05/13/25 11:59 200 mg QID LUCRETIA Administration Protocol Guaifenesin/Codeine Phosphate 5 ml 04/12/25 14:32 04/12/25 14:47 Guaifenesin/Cod Syrup 5 Ml Udc PO 05/12/25 14:31 5 ml Q4HR PRN Administration COUGH Protocol Heparin Sodium (Porcine) 5,000 unit 04/12/25 21:00 04/14/25 23:43 Heparin Sod Inj 5000 Unit/Ml Vial SC 04/26/25 20:59 5,000 unit Q12HR LUCRETIA Administration Piperacillin/Tazobactam/Dextrose 3.375 gm in 50 mls @ 12.5 mls/hr 04/11/25 21:00 04/14/25 23:32 Zosyn IV 04/18/25 20:59 12.5 mls/hr Q12HR LUCRETIA Administration Protocol Insulin Human Lispro 0 unit 04/11/25 17:00 04/15/25 07:35 Insulin Lispro (Admelog) 1 Unit/0.01 Ml Unit SC 05/11/25 16:59 Not Given AC LUCRETIA Protocol Labetalol HCl 10 mg 04/11/25 19:23 Labetalol Inj 5 Mg/Ml Vial 4 Ml IVP 05/11/25 19:29 Q8H PRN SBP>160 Metoprolol Succinate 100 mg 04/14/25 09:00 04/14/25 13:16 Metoprolol Succinate Xl 25 Mg Tabcr PO 05/14/25 08:59 100 mg QDAY LUCRETIA Administration Morphine Sulfate 1 mg 04/11/25 13:24 Morphine Sulf Inj 4 Mg/Ml Vial IVP 04/16/25 13:23 Q4HR PRN PAIN SCALE 7-10 (Severe Nitroglycerin 0.4 mg 04/11/25 09:29 Nitroglycerin 0.4 Mg Subl Btl #25 SL Q5M PRN CHEST PAIN Ondansetron HCl 4 mg 04/11/25 13:24 Ondansetron Inj 2 Mg/Ml Inj 2 Ml IVP 05/11/25 13:23 Q6H PRN NAUSEA OR VOMITING Protocol Tamsulosin HCl 0.4 mg 04/12/25 09:00 04/14/25 13:17 Tamsulosin Hcl 0.4 Mg Capsule PO 05/12/25 08:59 0.4 mg QDAY LUCRETIA Administration Plan Patient is a 64 year old male with PMH of coronary artery disease status post stent placement x 2, ESRD on hemodialysis, hypertension, hyperlipidemia type 2 diabetes mellitus, BPH who was admitted on 04/11/25 for management of ACS, and sepsis, unclear source. Nephrology consulted on 04/13/25 for shortness of breath secondary to fluid overload, requiring urgent HD. #AHRF 2/2 fluid overload #ESRD on HD MWF - Presented on 04/11/25 with chest pain that started about 1.5 hours after the dialysis started. Chest x-ray in ED was obtained, showed vascular congestion. Follows Dr. Cadena. - Creatinine 5.2 on admission -> 7.2 (04/13), baseline 4.6-5.1 in 2022 - S/p IV fluid 1.8L in ED due to concern for sepsis (WBC 19.5 with neutrophilic predominance, BP 190/76, temperature 102.4, respiratory rate 38). Unable to wean off BiPAP until last night. - Off BiPAP today, saturating 93% on 4L NC however, he continues to complain of shortness of breath, improved lung sounds but still has mild bibasilar crackles with wheezing. - S/p HD 04/13 (-3L, +1pRBC), 04/14 (-3L) Plan: - No need for dialysis as patient's breathing has improved significantly - If patient is still admitted, plan for dialysis tomorrow. 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 Angela. Sheri Richardson DO, PGY-1 Attending Provider Attestation/Addendum patient seen and examined with resident physician Dr. Richardson. Note reviewed, agree with findings and recommendations. Patient feeling much better. Did receive 2 dialysis sessions. Will adjust her dry weight at the dialysis unit. Renal nunez stable for discharge.
[2025-04-15] MEDS: METOPROLOL SUCCINATE XL 25 MG TABCR 100 MG PO (08:45)
[2025-04-15] MEDS: TAMSULOSIN HCL 0.4 MG CAPSULE PO (08:46)
[2025-04-15] MEDS: HEPARIN SOD INJ 5000 UNIT/ML VIAL SC (08:47)
[2025-04-15] MEDS: FINASTERIDE 5 MG TABLET PO (08:47)
[2025-04-15] MEDS: CLOPIDOGREL BISULFATE 75 MG TABLET PO (08:47)
[2025-04-15] MEDS: ASPIRIN EC 81 MG TABEC PO (08:47)
[2025-04-15] MEDS: FOLIC ACID 1 MG TABLET PO (08:47)
[2025-04-15] MEDS: PIPER/TAZO 3.375 GM PREMIX 3.375 GM/50 ML BAG IV (08:47)
--- NOTE | 2025-04-15 10:29 | ESDS_ITS ---
<Statement entered by Simon Young MD - 04/24/25 08:26> I reviewed above note and agree with findings and plans. I have also personally examined the patient with medicine team and went over assessment and plan with medical team including intern architect and resident physician. <Statement entered by Deepti Jefferson MD - 04/15/25 18:01> In summary: 64-year-old male with a history of coronary artery disease, ESRD on hemodialysis, hypertension, hyperlipidemia, type 2 diabetes, and BPH, who presented with chest pain during dialysis. He was febrile, hypertensive, and had difficulty breathing, requiring BiPAP. Initial tests suggested possible sepsis and fluid overload. Cardiology and nephrology consultations were made, and he received antibiotics, heparin, and emergent dialysis. After fluid removal and a blood transfusion, his symptoms improved, and he no longer required BiPAP. A CT chest showed mild heart failure and pneumonia. By discharge, he was stable, afebrile, and advised to continue antibiotics and follow up with dialysis. I?ve reviewed the note and agree with this assessment and plan, with the exceptions outlined above. I personally went over the labs, imaging, home medications, and prior records, and examined the patient. The case was also reviewed with the attending physician. Please note: this document was transcri bed using voice recognition technology; minor inaccuracies may be present. Deepti Jefferson DO PGY II Planned Discharge Date 04/15/25 DS: Providers Provider Date of admission: 04/11/25 13:23 Primary care physician: Physician No Primary/Family Admitting Provider: Guera Arvizu MD Attending Provider on Admission: Guera Arvizu MD Consults: 04/11/25 09:52 Consult to Cardiology Stat Comment: hx of CAD, hasn't seen cardiology in 20 years Consulting Provider: Leeann Hanks 04/11/25 11:52 Consult to Nephrology Stat Comment: ESRD on HD (MWF) Consulting Provider: Rodri Voss Attending Provider on DC: Simon Young MD Discharging Provider: Pierre Mathias DO Anticipated date of discharge: 04/15/25 DS: Diagnosis Problem List Completed Was Problem List Reviewed/Reconciled?: Yes Hospital Course Hospital Course Hospital course: Mr. Avila is a 64M with past medical history of coronary artery disease status post stent placement x 2, ESRD on hemodialysis M/W/F, hypertension, hyperlipidemia type 2 diabetes mellitus, BPH who presented initially on 04/11/25 with complaint of substernal chest pain while receiving dialysis session. Patient stated he received cardiac catheterization about 20 years ago but has not been keeping up with these follow-ups. In the ED, patient was hypertensive with blood pressure of 190/76, had temperature of 102.4, respiratory rate 38. He was started on nasal cannula but with worsening shortness of breath and increased work of breathing, he was switched to BiPAP. Initial lab was significant for 19.5 with neutrophilic predominance and troponin of 0.219. EKG showed NSR with no acute ST abnormalities. Echo revealed LVEF of 50-55%. Broad spectrum antibiotic promptly started with sepsis bolus given. He was also started on heparin drip per ACS protocol. Cardiology was consulted, suggested his troponin level is likely due to his ESRD. He was taken off heparin drip on day 1 of hospitalization and continue antiplatelet and statin per cardiology. Patient still require continuous BiPAP and reported orthopnea. Nephrology was consulted for emergent dialysis, given patient was likely fluid overloaded. On day 2 of hospitalization, patient received dialysis with 3L fluid removed and 1pRBC transfusion given his hemoglobin was below transfusion threshold of 8. Patient tolerated well and no longer required BiPAP, however, still complained of shortness of breathe. A subsequent dialysis session was initiated the next day with another 3L removed. On day of discharge, patient was satting at 92% on RA, a CT Chest non con was performed, revealed mild heart failure and pneumonia. White blood cell has returned to 11.0. Afebrile. Blood cultures revaled no growth at 48H. Urine culture negative. Patient was advised to continue taking his antibiotics at home and follow up with his dialysis session tomorrow. At this time, patient is medically and physically stable for discharge for home. All questions and concerns addressed, plan of care discussed with patient, return precautions given. Diagnosis: #ACS #NSTEMI type I versus 2 #History of coronary artery disease status post stents #Sepsis #Possible community-acquired pneumonia #UTI #Pyelonephritis #Cystitis #Acute hypoxic respiratory failure #Concern for HFpEF exacerbation #ESRD on hemodialysis #Anemia of chronic disease #Hypertensive urgency/emergency #Type II diabetes mellitus #BPH Discharge Plan: Follow up with primary care physician within 1 week of discharge Instructions have been explained to the patient with regards to their medications and how to take them. Patient was able to explain back to physician and nursing staff how to take their medications. Patient expressed understanding with instructions. New medications: You have been prescribed ciprofloxacin 750mg qday for 2 more days for UTI/pyelonephritis Continue to take the rest of your medications as prescribed by your primary care physician. Patient has been explained that should any symptoms recur or worsen patient is instructed to return to the Emergency Department. Case discussed with my senior resident Dr. Jefferson Case discussed with my attending Dr. Hector Mathias DO PGY 1 Status at Discharge Overall status at discharge: patient is back to baseline Time Spent with Patient Time attestation: Total time spent providing and/or coordinating discharge services: Time spent: Greater than 30 minutes Exam Vital Signs Temp Pulse Resp BP Pulse Ox O2 Del Method O2 Flow Rate 98.2 F 91 24 H 134/65 H 92 L Room Air 1 04/15/25 08:00 04/15/25 08:49 04/15/25 08:00 04/15/25 08:49 04/15/25 08:00 04/15/25 08:00 04/15/25 06:35 FiO2 1 04/15/25 06:35 Narrative Exam General: Awake and in no acute distress. A/O x 3. Lamine and Maxi speaking. HEENT: Normocephalic, atraumatic. Heart: Regular rate and rhythm Lungs: Clear to auscultation, mild crackles to lower lung shaw. Abdomen: Soft, nondistended, nontender. No guarding or rebound tenderness. Neurologic: Alert and oriented x3, no gross neurological deficit, and patient able to move all 4 extremities. Extremities: No pitting edema in lower extremities. Skin: No rash. No ecchymoses. Discharge Plan Plan Patient Disposition: HOME (Self Care) Patient condition on transfer: Stable Care Plan Goals: Follow up with primary care physician within 1 week of discharge Instructions have been explained to the patient with regards to their medications and how to take them. Patient was able to explain back to physician and nursing staff how to take their medications. Patient expressed understanding with instructions. New medications: You have been prescribed ciprofloxacin 750mg qday for 2 more days for UTI/pyelonephritis Continue to take the rest of your medications as prescribed by your primary care physician. Patient has been explained that should any symptoms recur or worsen patient is instructed to return to the Emergency Department. Prescriptions/Referrals Prescriptions/Med Rec: New ciprofloxacin HCl 750 mg tablet 750 mg PO BID 2 Days Qty: 4 0RF Continued atorvastatin 40 mg Tablet 40 mg PO QPM gemfibrozil 600 mg Tablet 600 mg PO BID ergocalciferol (vitamin D2) [Vitamin D2] 1,250 mcg (50,000 unit) Capsule 1 unit PO QWEEK Rx Instructions: one once a week clopidogrel [Plavix] 75 mg tablet 75 mg PO QDAY tamsulosin 0.4 mg Capsule 0.4 mg PO HS Qty: 30 0RF clonidine HCl 0.1 mg tablet 0.1 mg PO BID Rx Instructions: take one tablet PO in morning, take one tablet PO at bedtime finasteride 5 mg tablet 5 mg PO QDAY amlodipine 10 mg tablet 10 mg PO QDAY aspirin 81 mg Tablet,Chewable 81 mg PO PRN PRN (Reason: chest discomfort) metoprolol succinate 50 mg tablet extended release 24 hr 50 mg PO QDAY Qty: 30 0RF Rx Instructions: take one by mouth 3 times daily for blood pressure folic acid 1 mg tablet 1 mg PO QDAY Patient Comments: TAKE ONE TABLET BY MOUTH EVERY DAY VITAMIN hydrochlorothiazide 12.5 mg Capsule 25 mg PO QDAY Qty: 60 0RF Referrals: No Primary/Family,Physician [Primary Care Provider] Patient/Caregiver Discharge Instructions Print Language: Lebanese Stand Alone Forms: Echo Award Info., Patient Portal Info Letter Discharge Order Discharge Orders: Discharge (Routine); Ordered 04/15/25 Ordered By: Pierre Mathias Quality Discharge Quality Measures none
== END 2025-04-15 15:00 | disposition home or self-care (01) | DRG 871 ==
LOC: SERX 11:40 → SERHOLD 14:33 → S3NX 23:19
PROVIDERS: Student in an Organized Health Care Education/Training Program; Admitting Provider Student in an Organized Health Care Education/Training Program; Visit Provider Internal Medicine
DX: A41.9 Sepsis, unspecified organism (principal); I21.A1 Myocardial infarction type 2; N18.6 End stage renal disease; I50.33 Acute on chronic diastolic (congestive) heart failure; J18.9 Pneumonia, unspecified organism; J96.01 Acute respiratory failure with hypoxia; N12 Tubulo-interstitial nephritis, not specified as acute or chronic; I13.2 Hypertensive heart and chronic kidney disease with heart failure and with stage 5 chronic kidney disease, or end stage renal disease; E11.22 Type 2 diabetes mellitus with diabetic chronic kidney disease; E78.5 Hyperlipidemia, unspecified; D63.1 Anemia in chronic kidney disease; N40.0 Benign prostatic hyperplasia without lower urinary tract symptoms; I25.10 Atherosclerotic heart disease of native coronary artery without angina pectoris; E87.6 Hypokalemia; I16.0 Hypertensive urgency; E78.00 Pure hypercholesterolemia, unspecified; N30.90 Cystitis, unspecified without hematuria; Z95.5 Presence of coronary angioplasty implant and graft; Z99.2 Dependence on renal dialysis; Z87.891 Personal history of nicotine dependence; Z79.02 Long term (current) use of antithrombotics/antiplatelets; Z79.82 Long term (current) use of aspirin; Z79.84 Long term (current) use of oral hypoglycemic drugs
CPT/HCPCS: 36415; 71045; 71250; 80048; 80053; 80061; 80202; 81001; 82803; 83036; 83540; 83550; 83605; 83615; 83690; 83735; 83880; 84100; 84145; 84443; 84484; 85014; 85018; 85025; 85610; 85730; 86850; 86900; 86901; 86923; 87040; 87081; 87502; 87635; 93005; 93225; 93306; 94640; 94660; 94667; 96365; 96366; 96375; 99285; A9270; J0692; J1644; J1938; J2543; J3373; J3475; J7050; J7120; P9016; Q5105